=== PATIENT | male | born 1975 | race Caucasian/White ===

== ENCOUNTER 2016-10-10 11:15 | Inpatient (IN) ==
[2016-10-10] MEDS ORDERED: SALINE LOCK IV FLUID XX ONE (12:09)
[2016-10-10 12:48] LABS: MANUAL DIFF NEEDED? NO
[2016-10-10 12:50] LABS: BASO% 0.4 % (0.0-0.8); EOS# 0.04 X1000 (0.0-0.7); EOS% 0.7 % (0.0-10.0); HEMATOCRIT 35.2 % (42.0-52.0); HEMOGLOBIN 12.6 g/dL (14.0-18.0); IMM GRAN# 0.01 X1000 (0.0-0.04); IMM GRAN% 0.2 % (0.0-0.5); LYMPH# 0.97 X1000 (1.2-3.4); LYMPH% 17.7 % (20.5-51.1); MCH 35.5 PG (27-31); MCHC 35.8 g/dL (33-37); MCV 99.2 FL (81-99); MONO# 0.39 X1000 (0.11-0.59); MONO% 7.1 % (1.7-9.3); MPV 9.4 FL (7.4-10.4); NEUT% 73.9 % (42.2-75.2); PLT 133 X1000 (130-400); RBC 3.55 XMIL (4.7-6.1)
[2016-10-10 13:06] LABS: BILIRUBIN URINE NEGATIVE (NEGATIVE); BLOOD URINE TRACE (NEGATIVE); CLARITY CLEAR (CLEAR); COLOR YELLOW; LEUKOCYTES URINE 1+ (NEGATIVE); NITRITE URINE NEGATIVE (NEGATIVE); PROTEIN URINE TRACE mg/dL (NEGATIVE); SP GRAVITY URINE 1.015; UROBILINOGEN URINE NORMAL
[2016-10-10 13:07] LABS: URINE CULTURE PL NEEDED? YES; URINE EPITHELIAL CELLS <10 /HPF (<10); URINE RBC <10 /HPF (<10); URINE SOURCE CLEAN CATCH
[2016-10-10 13:12] LABS: CALCIUM 9.4 mg/dL (8.8-10.2); POTASSIUM 5.2 mmol/L (3.5-5.1); TOTAL BILIRUBIN 1.9 mg/dL (0.20-1.00)
--- NOTE | 2016-10-10 13:13 | EKG Report ---
Test Performed on : 10/10/2016 12:24:44 PM Test Reason : CP Blood Pressure : / mmHG Vent. Rate : 091 BPM Atrial Rate : 091 BPM P-R Int : 186 ms QRS Dur : 102 ms QT Int : 348 ms P-R-T Axes : 077 037 040 degrees QTc Int : 428 ms Normal sinus rhythm. Low voltage QRS Borderline ECG When compared with ECG of 24-NOV-2015 14:38, No significant change was found Unconfirmed Result
[2016-10-10] MEDS ORDERED: NS 1,000 ML IV ONE ×2 (14:37)
--- NOTE | 2016-10-10 15:12 | PROVIDER DOCUMENTATION ---
This chart was entered by Wilma Grimaldo Scribe, acting as scribe for Paddy Parsih MD. HPI-General Adult - General Chief Complaint: B/P Problems Stated Complaint: B/P PROB Time Seen by Provider: 10/10/16 11:54 Source: patient Allergies/Adverse Reactions: Patient Allergies Allergy/AdvReac Type Severity Reaction Status Date / Time adhesive AdvReac RASH Verified 10/10/16 11:40 Home Medications: Home Medication List Medication Instructions Recorded Confirmed Last Taken Type Indomethacin 50 mg PO PRN PRN 09/14/12 09/11/15 04/29/15 08:00 History Hydrocodone/Acetaminophen [Lortab 10 each PO TID 09/20/12 09/11/15 04/29/15 08: 00 History 10-500 Tablet] Tramadol [Ultram] 50 mg PO Q6H PRN PRN #12 tablet 09/20/12 09/11/15 04/29/15 08: 00 Rx Febuxostat [Uloric] 80 mg PO DAILY 04/15/13 09/11/15 04/29/15 08:00 History Omeprazole [Prilosec] 1 tab PO DAILY 10/14/13 09/11/15 04/29/15 08:00 History Furosemide [Lasix] 20 mg PO DAILY PRN PRN 12/30/13 09/11/15 04/29/15 08:00 History Gabapentin [Neurontin] 600 mg PO TID 12/30/13 09/11/15 04/29/15 08:00 History Sitagliptin [Januvia] 100 mg PO DAILY #30 tablet 10/22/14 09/11/15 04/29/15 08: 00 Rx Colchicine [Colcrys] 0.6 mg PO BID PRN PRN 09/11/15 09/11/15 Unknown History Hydrocodone/Acetaminophen [[place] 1 each PO Q4-6H PRN PRN #20 tablet 09/11/15 Unknown Rx 10-325 Tablet] Clonidine [Catapres] 0.1 mg PO DAILY #15 tablet 11/24/15 Unknown Rx Clindamycin [Cleocin] 150 mg PO Q6HR #30 capsule 12/29/15 Unknown Rx Methylprednisolone [Medrol Dosepak] 4 mg PO DIRECTED #1 package 12/29/15 Unknown Rx Levofloxacin [Levaquin] 750 mg PO DAILY #10 tablet 06/10/16 Unknown Rx Phenazopyridine [Pyridium] 100 mg PO TID #10 tablet 06/10/16 Unknown Rx - History of Present Illness -Gen Adult Nature of Presenting Problems: PT IS A 41YOM PRESENTING TO THE ED C/O BP LOW. PT STATES A HX OF HTN AND RENAL FAILURE BUT SINCE FRIDAY HEW STOPPED TAKING HIS BP MEDICATIONS BECAUSE HE STATES ITS BEEN RUNNING LOW. HE ALSO STATES NOT URINATING LIKE NORMAL. 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 PT HAS CHRONIC ABD PAIN FROM ULCERS AND JUST A "MILD PRESSURE LIKE DISCOMFORT IN CHEST THAT HE CAN FEEL IN HIS HEAD THAT IS INTERMITTENT AND LASTS ABOUT 10-15MINS PER EPISODE." NO OTHER COMPLAINTS NOTED AT THIS TIME Location of Pain/Injury: reports: generalized Pain Radiation: reports: no radiation Quality of Pain: reports: pressure Severity: reports: mild Onset/Duration: reports: 3 days ago Timing: reports: still present Context/Activities at Onset: reports: light activity Modifying Factors: improves with: nothing Associated Symptoms: reports: chest pain (PRESSURE, MILD), dizziness, fatigue, genitourinary problems, weakness. denies: constipation, cough, diaphoresis, diarrhea, joint pain, sinus congestion/drainage, nausea, shortness of breath, pain with inspiration, syncope Similar Symptoms Previously?: No Recently seen or treated by another doctor?: No Review of Systems - Adult - REVIEW OF SYSTEMS - ADULT Constitutional: reports: see HPI, fatique. denies: chills, fever Eyes: reports: no symptoms reported Ears, Nose, Mouth & Throat: reports: no symptoms reported Cardiovascular: reports: see HPI, chest pain, palpitations. denies: edema, irregular heart rate, poor circulation Respiratory: reports: see HPI, dyspnea on exertion, shortness of breath. denies : chronic cough, cough, wheezing Gastrointestinal: reports: see HPI, abdominal pain (CHRONIC), frequent heartburn . denies: diarrhea, nausea, vomiting Genitourinary: reports: see HPI, urinary retention. denies: flank pain, hematuria, incontinence Musculoskeletal: reports: no symptoms reported Integumentary: reports: no symptoms reported Neurological: reports: no symptoms reported Psychiatric: reports: no symptoms reported Endocrine: reports: no symptoms reported Hematologic/Lymphatic: reports: no symptoms reported Allergic/Immunologic: reports: no symptoms reported All Other Systems: Reviewed and Negative Past History - Adult - PAST MEDICAL HISTORY-ADULT Review of Records: reports: Old Records Reviewed, Nursing Assessment Review, Medications Reviewed, Social history reviewed & non-contributory. Major Childhood Illnesses: reports: denies history Cardiovascular: reports: HTN, hyperlipidemia Respiratory: reports: asthma Gastrointestinal: reports: colitis, ulcer Obstetrical/Gynecological: reports: denies history Genitourinary: reports: denies history Musculoskeletal: reports: arthritis, chronic pain, fibromyalgia, other Neurological: reports: denies history Endocrine/Immune: reports: Diabetes Other Conditions: reports: denies history - PRIOR SURGERIES/PROCEDURES Surgical/Procedure History: reports: cholecystectomy, orthopedic (extremity), back/neck - IMMUNIZATION STATUS Childhood Immunizations: See Nurse Assessment Flu Vaccine: See Nurse Assessment - FAMILY HISTORY Family History: reviewed, not pertinent - SOCIAL HISTORY Smoking: denies, non-smoker Substance Use: none/never, alcohol Alcohol Use Frequency: occasionally Number of drinks per typical drinking period:: 3-4 drinks Living Situation: family Physical Exam-General - PHYSICAL EXAM-ADULT Initial Vital Signs Reviewed: Yes - CONSTITUTIONAL General Appearance: appears well, alert, no apparent distress - EYES Eyes: PERRL/EOMI, pink conjunctivae - HEAD, EARS, NOSE, MOUTH & THROAT HENMT: normocephalic/atraumatic, moist mucous membranes, normal ENT inspection - NECK Neck: full range of motion, supple, normal inspection - RESPIRATORY Respiratory: lungs clear, normal breath sounds, no pleuratic chest pain, no respiratory distress, no accessory muscle use - CARDIOVASCULAR Cardiovascular: normal peripheral pulses, regular rate, rhythm, no edema - GASTROINTESTINAL (ABDOMEN) Abdominal Exam: soft, other (mild tender RUQ, pt says is nl for him) - MUSCULOSKELETAL Back Exam: normal inspection, no CVA tenderness, no vertebral tenderness Extremity: normal range of motion, non-tender - SKIN Integumentary: normal color, normal turgor, warm/dry - 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, grossly normal, no motor/sensory deficits - PSYCHIATRIC Psych/Mental Status: normal mood/affect, normal thought content, normal thought process, oriented x 3 Progress - PLAN OF CARE/RESULTS Progress/Plan/Lab Results: Vital Signs - 8 hr 10/10/16 11:37 Temperature 98 F Pulse Rate 96 H Respiratory Rate 18 Blood Pressure 122/73 O2 Sat by Pulse Oximetry 98 Orders Category Date Time Status ED: Orthostatic Vital Signs (E as directed Care 10/10/16 12:10 Active Saline Loc DIRECTED Care 10/10/16 12:09 Active CBC WITH DIFF [HEME] Stat Lab 10/10/16 12:09 Ordered COMPREHENSIVE METABOLIC PANEL [CHEM] Stat Lab 10/10/16 12:09 Ordered urinalysis [URINALYSIS PL W/POSS RFLX CULT] [URINALYSIS Lab 10/10/16 12:09 Uncollected ] Stat Pharmacy Order [Saline Lock IV Fluid] Med 10/10/16 12:09 Discontinued 1 each XX NOW ONE EKG [EKG] Routine Ther 10/10/16 12:10 Ordered Result Diagrams: 10/10/16 12:44 10/10/16 12:44 - CONSULTS/PCP/HOSPITALIST Notification #1 *Consult/PCP/Hospitalist*: LAVELL Time Discussed: 15:10 Reason/Comments: AGREES TO ADMIT PT TO SERVICE Consult Disposition: Admit Departure - Departure Time of Disposition Decision: 14:35 DIAGNOSIS: Acute renal failure (ARF), Hypotension Disposition: ADMITTED INPATIENT 09 Certified Medical Emergency: Emergent Condition: Good Referrals and Follow-Ups: Ritesh Young MD [Primary Care Provider] - - Critical Care Note This patient required my direct & personal management of CC.: No This chart was documented by the indicated scribe, (Wilma Grimaldo Scribe) and accurately reflects the services I performed and decisions made by me, Paddy Parish MD, as attested by the provider's signature.
[2016-10-10] MEDS ORDERED: ULTRAM PO PRN (21:09)
[2016-10-10] MEDS ORDERED: TYLENOL PO PRN (21:11)
[2016-10-10] MEDS ORDERED: ZOFRAN IV PRN (21:11)
[2016-10-10] MEDS: NS 1,000 ML IV SCH (21:38)
[2016-10-10] MEDS: NEURONTIN PO SCH (21:39)
[2016-10-10] MEDS: NORCO-10 PO PRN (21:39)
[2016-10-11 05:51] LABS: MANUAL DIFF NEEDED? NO
[2016-10-11] MEDS: NS 1,000 ML IV SCH ×3 (06:03→21:58)
[2016-10-11] MEDS: PRILOSEC PO SCH (06:03)
[2016-10-11 06:07] LABS: BASO% 0.4 % (0.0-0.8); EOS# 0.03 X1000 (0.0-0.7); EOS% 1.2 % (0.0-10.0); HEMATOCRIT 31.1 % (42.0-52.0); HEMOGLOBIN 10.4 g/dL (14.0-18.0); LYMPH# 0.95 X1000 (1.2-3.4); LYMPH% 38.2 % (20.5-51.1); MCH 34.6 PG (27-31); MCHC 33.4 g/dL (33-37); MCV 103.3 FL (81-99); MONO# 0.23 X1000 (0.11-0.59); MONO% 9.2 % (1.7-9.3); MPV 9.7 FL (7.4-10.4); PLT 79 X1000 (130-400); RBC 3.01 XMIL (4.7-6.1)
[2016-10-11 06:10] LABS: HEMOGLOBIN A1C 6.6 % (4.8-6.0)
[2016-10-11 06:34] LABS: ALBUMIN 3.4 g/dL (3.5-5.0); CALCIUM 8.6 mg/dL (8.8-10.2); POTASSIUM 4.1 mmol/L (3.5-5.1); TOTAL BILIRUBIN 1.3 mg/dL (0.20-1.00); TOTAL PROTEIN 6.9 g/dL (6.3-8.3)
--- NOTE | 2016-10-11 07:07 | HISTORY AND PHYSICAL ---
CHIEF COMPLAINT: Fatigue, decreased urination. HISTORY PRESENT ILLNESS: Patient is a 41-year-old male who presented to [facility] emergency department stating that he has a history of renal failure and hypertension; however, Friday he started feeling bad. His blood pressure was down to 89/47, so he did not take his blood pressure medicine for the last couple of days. Notes that he has been working out in the heat a little bit more. He states that he has been trying to drink lots of fluids, but over the last couple of days his urine has become very dark and notes that he essentially did not urinate yesterday at all. ALLERGIES: Adhesive tape. MEDICATIONS: 1. Indomethacin p.r.n. although he has not taken it recently. 2. Hydrocodone. 3. Tramadol. 4. 5. Prilosec. 6. Lasix 20. 7. Neurontin 600 t.i.d. 8. Januvia 100. 9. 0.6 b.i.d. p.r.n. PAST MEDICAL HISTORY: 1. Hypertension. 2. Gout . 3. Diabetes. 4. Renal failure. 5. Chronic gastric ulcers. 6. Chronic colitis. 7. Fibromyalgia. 8. Chronic arthritis. 9. Asthma. 10. Hyperlipidemia. PAST SURGICAL HISTORY: 1. He has had a history of cholecystectomy. 2. Has had back surgery. 3. Knee surgery. REVIEW OF SYSTEMS: As noted above, patient complains of chronic abdominal pain due to his ulcers, chronic nausea with frequent vomiting, his gout which caused chronic arthritis in his knees and his feet. Has had chest pain recently only when he takes a deep breath that he felt was likely secondary to his stomach ulcers. No radiation of said pain. Did not worsen with activity. Denies any palpitations. Denies any dysuria, frequency, or urgency. Denies constipation, melena, hematochezia. FAMILY HISTORY: Noncontributory. SOCIAL HISTORY: Patient lives at home. He is employed. He notes he no longer drinks, has not drank in several months. He does not smoke. PHYSICAL EXAMINATION: VITAL SIGNS: Temperature 98 degrees, pulse 96, respiratory rate 18, BP 122/73. Saturation 98% on room air. GENERAL: Patient is awake, alert, currently in no respiratory distress. He is pleasant to talk with but ill-appearing. HEENT: Normocephalic, atraumatic. NECK: Supple. CV: Regular rate. CHEST: Relatively clear. ABDOMEN: Soft. EXTREMITIES: Moves all extremities. No edema. NEUROLOGIC: No focal changes. SKIN: Warm and dry. No rashes. DIAGNOSTIC DATA: CBC normal. CMP with a sodium 1.4. Potassium 5.2. Carbon dioxide 22. BUN 38, creatinine 3.4, glucose 149. ASSESSMENT: 1. Acute volume depletion. 2. Hypotension secondary to volume depletion in a patient with a known history of hypertension. 3. Hyponatremia. 4. Hypokalemia. 5. Acute renal failure. 6. Metabolic acidosis. 7. Gout. 8. Diabetes. 9. Asthma. 10. Others. PLAN: We will admit patient to the hospital. Replace IV fluids. Hold any nephrotoxic drugs at the moment. Most likely, his sodium and potassium are secondary to his acute on chronic renal failure from volume depletion. No signs at this point of infectious etiology. cc: Ritesh Young MD
[2016-10-11] MEDS: NEURONTIN PO SCH ×3 (08:19→16:48)
[2016-10-11] MEDS: NORCO-10 PO PRN ×3 (08:24→20:14)
[2016-10-11] MEDS ORDERED: NEURONTIN PO SCH (09:00)
--- NOTE | 2016-10-11 09:10 | PROGRESS NOTE ---
DATE: 10/11/2016 SUBJECTIVE: The patient notes that he is feeling much better this morning. He is having less nausea and no vomiting. He is actually starting to have better urine output. Denies any chest pain, palpitations. Denies any burning or itching when he urinates. Denies any diarrhea, constipation or melena. OBJECTIVE: Temperature 97, pulse 80, respiratory 16, BP 135/66, saturation 100% on room air.General: Patient is awake, alert, oriented. He is in no distress. Speech is regular. Memory is intact. Neck: Supple. CV: Regular rate. Chest: Clear, nonlabored. Abdomen: Soft. Extremities: Moves all extremities well. Neurologic: No focal changes. Skin: Warm and dry. No rashes. LABS: Hemoglobin 10 and hematocrit 30. MCV 103, MCH 34. Potassium 4.1, sodium 135, creatinine 1.9, glucose 189, total bilirubin improved at 1.3. ASSESSMENT: 1. Acute hepatitis. Continues to improve. Likely secondary to his current situation as well as his known history of chronic alcohol ingestion. 2. Hyponatremia, resolved, sodium 135. 3. Acute renal failure. Continues to improve. His BUN is down to 30, creatinine down to 1.9. 4. Diabetes with hyperglycemia. Good home control an A1c of 6.6. Blood sugars were much better in the hospital currently. 5. Anemia of chronic disease. 6. Gout. 7. Hypertension. The patient's blood pressures are starting to increase, although he has not restarted his home medications yet. We will continue to follow. PLAN: We will continue IV fluids. Recheck his labs in the a.m. Hopefully home at that point. We will restart his Januvia. Continue to hold Uloric and Lasix for now. cc: Ritesh Young MD
[2016-10-11] MEDS: JANUVIA PO SCH (09:40)
[2016-10-12 06:12] LABS: HEMATOCRIT 29.7 % (42.0-52.0); HEMOGLOBIN 9.7 g/dL (14.0-18.0); MCH 34.9 PG (27-31); MCHC 32.7 g/dL (33-37); MCV 106.8 FL (81-99); MPV 9.7 FL (7.4-10.4); RBC 2.78 XMIL (4.7-6.1)
[2016-10-12] MEDS: PRILOSEC PO SCH (06:14)
[2016-10-12 06:43] LABS: AGAP 10; ALBUMIN 3.3 g/dL (3.5-5.0); ALKALINE PHOSPHATASE 170 U/L (32-122); BUN 17 mg/dL (8-22); CALCIUM 8.3 mg/dL (8.8-10.2); CHLORIDE 104 mmol/L (98-107); COSMO 280; GOT 75 U/L (10-34); GPT 28 U/L (10-44); POTASSIUM 4.2 mmol/L (3.5-5.1); SODIUM 138 mmol/L (136-145); TCO2 24 mmol/L (25-35); TOTAL PROTEIN 6.3 g/dL (6.3-8.3)
[2016-10-12 07:46] VITALS: BP 143/76
[2016-10-12] MEDS: NS 1,000 ML IV SCH (08:03)
[2016-10-12] MEDS: NEURONTIN PO SCH (08:04)
[2016-10-12] MEDS: NORCO-10 PO PRN (08:04)
[2016-10-12] MEDS: JANUVIA PO SCH (08:04)
--- NOTE | 2016-10-12 22:12 | DISCHARGE SUMMARY ---
ADMISSION DATE: 10/10/2016 DISCHARGE DATE: 10/12/2016 DISCHARGE DIAGNOSES: 1. Acute renal failure resolved. Creatinine 3.4 admit, 1.2 discharge. 2. Acute volume depletion. BUN 38 admit, 17 discharge. 3. Hyponatremia, 124 admit, 138 discharge. 4. Hyperkalemia secondary to volume depletion and renal failure resolved currently 4.2 on discharge. 5. Anemia of chronic disease. 6. Pancytopenia. Patient's platelet count continues to be low as well as his hemoglobin and hematocrit and his white count. This will be followed outpatient. 7. Hyperbilirubinemia improving. Bilirubin down to 1.2. 8. Gout. 9. Diabetes. 10. Reflux. CONSULTATION: None. PROCEDURES: None. BRIEF HOSPITAL COURSE: Patient is a 41-year-old male was admitted as noted in the HPI, treated in usual fashion, placed on IV fluids. His medications were continued with exception of his indomethacin which he notes he has not taken in over a year. His colchicine also was held. Otherwise his other medications were continued. He was given fluids. On discharge he was awake, alert. He is ambulating in the ross without any difficulty. DISPOSITION: The patient will be discharged home. Discussed with him that he needs to continue to watch his fluid intake. No changes were made in his home medications. cc: Ritesh Young MD
== END 2016-10-12 11:40 | disposition home or self-care (01) ==
LOC: P.MEDSURG 11:15 → P.ED 11:15 → OBSVTOIN 16:26
PROVIDERS: ATTEND Family Medicine

== ENCOUNTER 2016-12-10 17:57 | Inpatient (IN) ==
[2016-12-10 18:46] LABS: MANUAL DIFF NEEDED? NO
[2016-12-10 18:52] LABS: BILIRUBIN URINE 2+ (NEGATIVE); BLOOD URINE NEGATIVE (NEGATIVE); CLARITY CLEAR (CLEAR); COLOR YELLOW; GLUCOSE URINE NEGATIVE (NEGATIVE); LEUKOCYTES URINE TRACE (NEGATIVE); NITRITE URINE NEGATIVE (NEGATIVE); PROTEIN URINE 1+(30 mg/dL) mg/dL (NEGATIVE); UROBILINOGEN URINE 4+(12 mg/dL)
[2016-12-10 18:53] LABS: URINE WBC <10 /HPF (<10)
[2016-12-10 18:54] LABS: URINE CAST NONE SEEN /LPF; URINE CRYSTAL NONE SEEN /HPF; URINE CULTURE PL NEEDED? YES; URINE EPITHELIAL CELLS <10 /HPF (<10); URINE SOURCE CLEAN CATCH
[2016-12-10 19:14] LABS: AGAP 10; ALBUMIN 2.9 g/dL (3.5-5.0); ALKALINE PHOSPHATASE 274 U/L (32-122); BUN 11 mg/dL (8-22); CALCIUM 8.4 mg/dL (8.8-10.2); CHLORIDE 94 mmol/L (98-107); COSMO 268; GOT 138 U/L (10-34); GPT 38 U/L (10-44); POTASSIUM 3.5 mmol/L (3.5-5.1); SODIUM 131 mmol/L (136-145); TCO2 26 mmol/L (25-35); TOTAL PROTEIN 6.3 g/dL (6.3-8.3)
[2016-12-10 19:18] LABS: BASO% 0.3 % (0.0-0.8); EOS# 0.03 X1000 (0.0-0.7); EOS% 0.9 % (0.0-10.0); HEMATOCRIT 35.1 % (42.0-52.0); HEMOGLOBIN 11.5 g/dL (14.0-18.0); LYMPH# 0.86 X1000 (1.2-3.4); LYMPH% 25.9 % (20.5-51.1); MCH 33.1 PG (27-31); MCHC 32.8 g/dL (33-37); MCV 101.2 FL (81-99); MONO# 0.33 X1000 (0.11-0.59); MONO% 9.9 % (1.7-9.3); MPV 10.2 FL (7.4-10.4); PLT 70 X1000 (130-400); RBC 3.47 XMIL (4.7-6.1)
[2016-12-10] MEDS ORDERED: NS 1,000 ML IV ONE (19:37)
--- NOTE | 2016-12-10 19:44 | PROVIDER DOCUMENTATION ---
HPI-Abdominal Pain/GI Problem - General Chief Complaint: Male Stated Complaint: RENAL FAILURE Time Seen by Provider: 12/10/16 19:27 Allergies/Adverse Reactions: Patient Allergies Allergy/AdvReac Type Severity Reaction Status Date / Time adhesive AdvReac RASH Verified 10/10/16 11:40 Home Medications: Home Medication List Medication Instructions Recorded Confirmed Last Taken Type Tramadol [Ultram] 50 mg PO Q6H PRN PRN #12 tablet 09/20/12 12/10/16 04/29/15 08: 00 Rx Febuxostat [Uloric] 80 mg PO DAILY 04/15/13 12/10/16 04/29/15 08:00 History Furosemide [Lasix] 20 mg PO DAILY PRN PRN 12/30/13 12/10/16 12/08/16 History 20mg Gabapentin [Neurontin] 600 mg PO TID 12/30/13 12/10/16 12/10/16 History 600 MG Sitagliptin [Januvia] 100 mg PO DAILY #30 tablet 10/22/14 12/10/16 12/10/16 Rx 100 MG Colchicine [Colcrys] 0.6 mg PO BID PRN PRN 09/11/15 12/10/16 Unknown History Hydrocodone/Acetaminophen [[place] 1 each PO Q4-6H PRN PRN #20 tablet 09/11/1512/10/16 Rx 10-325 Tablet] 1 EACH Lansoprazole 30 mg PO DAILY 10/10/16 12/10/16 12/10/16 History 30 MG - History of Present Illness-ABD Nature of Presenting Problems: Pt comes in stating that he hasn't been urinating well. He states he hydrates well drinking a lot of water at work. He then later admits to drinking roughly 9 beers most nights but no liquor and didn't think his drinking was a problem. Review of Systems - Adult - REVIEW OF SYSTEMS - ADULT Constitutional: reports: no symptoms reported. denies: chills, fever, fatique, night sweats, weight gain, weight loss Eyes: reports: no symptoms reported. denies: decreased vision, double vision, eye pain Ears, Nose, Mouth & Throat: reports: no symptoms reported. denies: ear discharge, ear pain, hearing loss, epistaxis, loose teeth, mouth/dental pain, mouth swelling, throat pain, throat swelling Cardiovascular: reports: no symptoms reported. denies: chest pain, edema, heart murmur, irregular heart rate, palpitations, poor circulation, PND, syncope Respiratory: reports: no symptoms reported. denies: see HPI, excessive sputum production, hemoptysis, pleurisy, shortness of breath, wheezing Gastrointestinal: reports: see HPI, abdominal pain, constipation. denies: hematemesis, difficulty swallowing, frequent heartburn, nausea, poor appetite, rectal bleeding, vomiting Genitourinary: reports: see HPI, urinary retention. denies: dysuria, discharge , frequency, flank pain, frequent UTI's, hematuria, hesitency, incontinence, urgency Musculoskeletal: reports: see HPI, back pain. denies: bone pain, frequent leg cramps, joint pain, joint swelling, muscle aches, muscle weakness, neck pain Integumentary: reports: no symptoms reported. denies: hives, hair loss, mole changes, skin sores/ulcer, skin thickening Neurological: reports: no symptoms reported. denies: ataxia, dizziness/vertigo , headache/migraines, loss of balance, numbness, seizure, slurred speech, syncope, tremors Psychiatric: reports: see HPI, alcohol/drug dependence. denies: anxiety, depression, emotional problems, panic attacks, suicidal thoughts Endocrine: reports: no symptoms reported. denies: change in skin pigment, excessive sweating, goiter, heat intolerance, increased hunger, increased thirst , polyuria Hematologic/Lymphatic: reports: no symptoms reported. denies: blood clots, easy bruising, lymphedema, swollen lymph nodes, transfusions Allergic/Immunologic: reports: no symptoms reported. denies: allergic reactions , allergic rhinitis, asthma, eczema, food allergy, frequent infections, hay fever, positive PPD, urticaria All Other Systems: Reviewed and Negative Past History - Adult - PAST MEDICAL HISTORY-ADULT Review of Records: reports: Old Records Reviewed, Nursing Assessment Review, Medications Reviewed, Social history reviewed & non-contributory. Major Childhood Illnesses: reports: denies history Cardiovascular: reports: HTN, hyperlipidemia Respiratory: reports: asthma Gastrointestinal: reports: colitis, ulcer Obstetrical/Gynecological: reports: denies history Genitourinary: reports: denies history Musculoskeletal: reports: arthritis, chronic pain, fibromyalgia, other Neurological: reports: denies history Endocrine/Immune: reports: Diabetes Other Conditions: reports: denies history - PRIOR SURGERIES/PROCEDURES Surgical/Procedure History: reports: cholecystectomy, orthopedic (extremity), back/neck - IMMUNIZATION STATUS Childhood Immunizations: See Nurse Assessment Flu Vaccine: See Nurse Assessment - FAMILY HISTORY Family History: reviewed, not pertinent - SOCIAL HISTORY Smoking: denies Substance Use: alcohol Alcohol Use Frequency: every day Number of drinks per typical drinking period:: 5-10 drinks Living Situation: alone Physical Exam-General - PHYSICAL EXAM-ADULT Initial Vital Signs Reviewed: Yes - CONSTITUTIONAL General Appearance: appears well, alert, obese, other (jaundiced) - EYES Eyes: PERRL/EOMI, pink conjunctivae - HEAD, EARS, NOSE, MOUTH & THROAT HENMT: normocephalic/atraumatic, moist mucous membranes, normal ENT inspection - NECK Neck: non-tender, full range of motion, supple - RESPIRATORY Respiratory: chest non-tender, lungs clear, normal breath sounds - CARDIOVASCULAR Cardiovascular: normal peripheral pulses, regular rate, rhythm - GASTROINTESTINAL (ABDOMEN) Abdominal Exam: normal bowel sounds, soft, tenderness, spleenomegaly - MUSCULOSKELETAL Back Exam: no vertebral tenderness, CVA tenderness Extremity: normal range of motion, non-tender, normal gait - SKIN Integumentary: normal turgor, warm/dry, other (chronic discoloration bilat lower ext) - NEUROLOGIC 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9 [place] % (Auto) 9.9 H Eos % (Auto) 0.9 Baso % (Auto) 0.3 Immature Gran # (Auto) 0.00 Neut # (Auto) 2.09 Lymph # (Auto) 0.86 L [place] # (Auto) 0.33 Eos # (Auto) 0.03 Baso # (Auto) 0.01 Sodium 131 L Potassium 3.5 Chloride 94 L Carbon Dioxide 26 Anion Gap 10 BUN 11 Creatinine 0.8 Estimated GFR/1.73 m2 > 60 BUN/Creatinine Ratio 14 Glucose 213 H Calculated Osmolality 268 Calcium 8.4 L Total Bilirubin 6.30 H AST 138 H ALT 38 Alkaline Phosphatase 274 H Total Protein 6.3 Albumin 2.9 L Globulin 3.0 Albumin/Globulin Ratio 1.0 Urine Source CLEAN CATCH Urine Color YELLOW Urine Clarity CLEAR Urine pH 5.0 Ur Specific [place] 1.020 Urine Protein 1+(30 mg/dL) A Urine Ketones 1+(Small) A Urine Blood NEGATIVE Urine Nitrite NEGATIVE Urine Bilirubin 2+ A Urine Urobilinogen 4+(12 mg/dL) Urine Microscopic RBC Not Reportable Urine WBC TRACE A Urine Microscopic WBC <10 Ur Epithelial Cells <10 Urine Crystals NONE SEEN Urine Bacteria 1+ Urine Casts NONE SEEN Urine Yeast NONE SEEN Urine Glucose NEGATIVE Orders Category Date Time Status IV Insertion ORDERED Care 12/10/16 19:37 Ordered ABDOMEN/PELVIS W/CONTRAST [CT] Stat Exams 12/10/16 19:33 Ordered AMYLASE [CHEM] Stat Lab 12/10/16 19:31 Ordered CBC WITH DIFF [HEME] Stat Lab 12/10/16 18:42 Completed CMP [COMPREHENSIVE METABOLIC PANEL] [CHEM] Stat Lab 12/10/16 18:42 Completed LIPASE [CHEM] Stat Lab 12/10/16 19:32 Ordered URINE CULTURE [RM] Routine Lab 12/10/16 18:54 Ordered urinalysis [URINALYSIS PL W/POSS RFLX CULT] [URINALYSIS Lab 12/10/16 18:15 Completed ] Stat Ns 1000 ml IV Bolus X1 Med 12/10/16 19:37 Ordered 0.9% Sodium Chloride Inj [Ns] 1,000 ml IV 999 mls/hr Result Diagrams: 12/10/16 18:42 12/10/16 18:42 - CONSULTS/PCP/HOSPITALIST Notification #1 *Consult/PCP/Hospitalist*: penot Time Discussed: 20:31 Consult Disposition: Admit Departure - Departure Date of Disposition Decision: 07/18/17 Time of Disposition Decision: 20:31 DIAGNOSIS: Alcoholic hepatitis Qualifiers: Ascites presence: without ascites Qualified Code(s): K70.10 - Alcoholic hepatitis without ascites Disposition: ADMITTED INPATIENT 09 Certified Medical Emergency: Emergent Condition: Good Additional Freetext Instructions: ED Follow Up Instructions: You have been treated by a care provider in the Emergency Department. These instructions are being provided to you so you can have an understanding of how to care for yourself upon discharge. Upon discharge from the Emergency Department, you are responsible for making arrangements for follow-up care by a physician of your choice. Take all prescribed medications as directed. Return to the Emergency Department immediately for any new or worsening symptoms. You may call the Physician Referral phone number at [phone] to obtain a list of Physicians who are taking new patients. Referrals and Follow-Ups: Ritesh Young MD [Primary Care Provider] - - Critical Care Note This patient required my direct & personal management of CC.: No Attestation - Physician/ SABI Attestation Patient care was provided by Advanced Practice Provider:: Yes Advanced Practice Provider:: Lindy Hernandez (physician on site for consultation but did not see this patient) Advanced Practice Provider documentation review:: The Mid-level provider documentation, treatment plan and medical decision making was reviewed by the physician who agrees with all treatment and medical decision making by the MLP.
--- NOTE | 2016-12-10 20:58 | Diag Imaging Result Doc PS360 ---
EXAM: CT ABD/PELVIS W/ IV CONT ONLY INDICATION: abnormal labs TECHNIQUE: COMPARISON: 06/10/2016 FINDINGS: There has been a previous cholecystectomy. There is splenomegaly with the spleen measuring up to 22.6 cm in craniocaudal length, approximately stable. The liver is mildly prominent, stable. There are no renal or ureteral stones and there is no hydronephrosis. The appendix is normal. There is trace nonspecific fluid tracking along the right pericolic gutter and layering in the pelvis. At least a trace fluid in the paracolic gutter is very similar as compared to the previous study. No focal inflammatory change or free abdominal gas is appreciated. There is no evidence of bowel obstruction. The remainder of the solid viscera of the abdomen and pelvis and the remainder of the GI tract are essentially unremarkable. IMPRESSION: 1.Stable hepatosplenomegaly. 2.Trace nonspecific fluid tracking along the right paracolic gutter and layering in the pelvis. Electronically signed by Maikol Daley 12/10/2016 8:56 PM
[2016-12-10] MEDS ORDERED: ZOFRAN IV PRN (21:17)
[2016-12-10] MEDS ORDERED: SODIUM CHLORIDE 0.9% INJ SCH (21:17)
[2016-12-10] MEDS: PROTONIX IV SCH (21:58)
[2016-12-10] MEDS: NS 1,000 ML IV SCH (21:58)
[2016-12-10] MEDS: ATIVAN IV PRN (21:58)
[2016-12-11] MEDS ORDERED: ULTRAM PO PRN (00:05)
[2016-12-11] MEDS ORDERED: LASIX PO PRN (00:05)
[2016-12-11] MEDS ORDERED: COLCRYS PO PRN (00:05)
[2016-12-11] MEDS: NORCO-10 PO PRN ×4 (00:45→22:02)
[2016-12-11] MEDS: ATIVAN IV PRN ×2 (00:51→22:03)
[2016-12-11] MEDS: NS 1,000 ML IV SCH (05:53)
[2016-12-11 06:16] LABS: MANUAL DIFF NEEDED? NO
[2016-12-11 06:45] LABS: BASO% 0.4 % (0.0-0.8); EOS# 0.04 X1000 (0.0-0.7); EOS% 1.8 % (0.0-10.0); HEMATOCRIT 32.8 % (42.0-52.0); HEMOGLOBIN 10.3 g/dL (14.0-18.0); IMM GRAN# 0.01 X1000 (0.0-0.04); IMM GRAN% 0.4 % (0.0-0.5); LYMPH# 0.95 X1000 (1.2-3.4); LYMPH% 42.2 % (20.5-51.1); MCH 32.6 PG (27-31); MCHC 31.4 g/dL (33-37); MCV 103.8 FL (81-99); MONO# 0.27 X1000 (0.11-0.59); MPV 10.1 FL (7.4-10.4); NEUT% 43.2 % (42.2-75.2); PLT 61 X1000 (130-400); RBC 3.16 XMIL (4.7-6.1)
[2016-12-11 06:51] LABS: AGAP 6; ALBUMIN 2.5 g/dL (3.5-5.0); ALKALINE PHOSPHATASE 236 U/L (32-122); BUN 7 mg/dL (8-22); CALCIUM 7.9 mg/dL (8.8-10.2); CHLORIDE 102 mmol/L (98-107); COSMO 275; GOT 115 U/L (10-34); GPT 32 U/L (10-44); POTASSIUM 3.4 mmol/L (3.5-5.1); SODIUM 137 mmol/L (136-145); TCO2 29 mmol/L (25-35); TOTAL PROTEIN 5.7 g/dL (6.3-8.3)
[2016-12-11] MEDS ORDERED: NS 1,000 ML IV SCH ×2 (08:25→18:55)
[2016-12-11] MEDS: NEURONTIN PO SCH ×3 (09:07→17:25)
[2016-12-11] MEDS: JANUVIA PO SCH (09:07)
[2016-12-11] MEDS: ULORIC PO SCH (09:07)
--- NOTE | 2016-12-11 14:00 | HISTORY AND PHYSICAL ---
CHIEF COMPLAINT: Flank pain. HISTORY OF PRESENT ILLNESS: Patient is a 41-year-old male, who notes that he has had multiple issues in the past with renal failure and flank pain when he gets dehydrated at work over the summer. He presented to the emergency department, stating that his urine is dark. It has a foul odor. He is having left flank pain. He has had decreased urination and it concerned him because last year he went into renal failure and remained in the hospital for several days. ALLERGIES: Adhesive tape. MEDICATIONS: Tramadol, Uloric 80, Lasix 20, Neurontin 600, Januvia 100, 0.6 b.i.d., Leonard, and Protonix. REVIEW OF SYSTEMS: As noted above. Patient denies any chest pain, palpitations. Denies any fevers, chills, cough, congestion. Denies any shortness of breath or dyspnea on exertion. Denies paroxysmal nocturnal dyspnea or orthopnea. Denies hematochezia, melena, hematemesis, or hematuria. PAST MEDICAL HISTORY: Hypertension, hyperlipidemia, asthma, gout, recurrent colitis, peptic ulcer disease, fibromyalgia, chronic pain, diabetes. PAST SURGICAL HISTORY: He has had a cholecystectomy and back surgery. FAMILY HISTORY: Noncontributory. SOCIAL HISTORY: Patient denies smoking. States that he drinks 5-10 beers a day but did not think this was an issue because he was not drinking hard liquor. He is and lives alone. Has one daughter. PHYSICAL: Vital Signs: Temperature 99, pulse 90, respiratory rate 21, blood pressure 141/72, sat 98% on room air. General: Patient is awake, alert, currently in no respiratory distress. He is pleasant to talk with. Neck: Supple. Cardiovascular: Regular rate. Chest: Relatively clear. Abdomen: Soft. Extremities: Moves all extremities. Neurologic: No focal changes. Skin: Warm and dry. No rashes. DIAGNOSTIC DATA: WBCs 2. Hemoglobin and hematocrit 10 and 30. Platelets 61,000. Potassium 3.5, sodium 131, total bilirubin 6.3. AST 138, down to 115. Alkaline phosphatase 274, down 236. ASSESSMENT: 1. Moderate protein calorie malnutrition with an albumin around 2.5. 2. Acute alcoholic hepatitis. Continues to improve. 3. Hypocalcemia. Actually corrects given his low albumin. 4. Hyponatremia, improved. 5. Hypokalemia. Will replace. 6. Pancytopenia, chronic. 7. Chronic alcoholism. 8. Chronic gout. 9. Fibromyalgia. PLAN: Discussed with the patient that he needs to stop drinking. That certainly all alcohol, including beer, worsens his gout, as well as his renal failure. Currently, he is not in renal failure. We will continue his bag to IV fluids. We will advance his diet. Further orders as needed. Hopefully home in the next 1-2 days. cc: Ritesh Young MD
[2016-12-11] MEDS: PROTONIX IV SCH (22:02)
[2016-12-12 06:33] LABS: HEMATOCRIT 33.2 % (42.0-52.0); HEMOGLOBIN 10.4 g/dL (14.0-18.0); MCHC 31.3 g/dL (33-37); MCV 105.4 FL (81-99); MPV 10.3 FL (7.4-10.4); RBC 3.15 XMIL (4.7-6.1)
[2016-12-12 06:42] LABS: AGAP 6; ALBUMIN 2.3 g/dL (3.5-5.0); ALKALINE PHOSPHATASE 231 U/L (32-122); BUN 5 mg/dL (8-22); CALCIUM 8.1 mg/dL (8.8-10.2); CHLORIDE 104 mmol/L (98-107); COSMO 272; GOT 96 U/L (10-34); GPT 27 U/L (10-44); POTASSIUM 3.7 mmol/L (3.5-5.1); SODIUM 135 mmol/L (136-145); TCO2 24 mmol/L (25-35); TOTAL PROTEIN 5.7 g/dL (6.3-8.3)
[2016-12-12 08:10] VITALS: BP 161/80
[2016-12-12] MEDS: NORCO-10 PO PRN (09:13)
[2016-12-12] MEDS: NEURONTIN PO SCH (09:13)
[2016-12-12] MEDS: ULORIC PO SCH (09:13)
[2016-12-12] MEDS: JANUVIA PO SCH (09:14)
[2016-12-12 09:37] LABS: HEPATITIS PROFILE ACUTE SEE COMMENTS
--- NOTE | 2016-12-13 23:42 | DISCHARGE SUMMARY ---
ADMISSION DATE: 12/10/2016 DISCHARGE DATE: 12/12/2016 DATE OF ADMISSION: 12/10. DATE OF DISCHARGE: 12/12. DISCHARGE DIAGNOSES: 1. Abdominal pain, improved. 2. Acute volume depletion, resolved. 3. Mild protein calorie malnutrition. 4. Acute hepatitis, resolved. 5. Hypocalcemia, resolved. 6. Hyponatremia, resolved. 7. Hypokalemia, resolved. 8. Chronic alcoholism, again discussed with patient the perils of drinking and ways to stop. 9. Chronic gout. 10. Fibromyalgia. CONSULTATIONS: None. PROCEDURES: None. BRIEF HOSPITAL COURSE: The patient is a 41-year-old male who was admitted. As noted in the HPI, treated in the usual fashion. Placed on IV fluids. He was continued on his home medications. Thankfully he did not have any alcohol withdrawal type issues while he was in the hospital. He continued to improve and on discharge he was awake, alert. DISPOSITION: The patient will be discharged home. Discussed with him the perils of drinking. 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 Further orders as needed. TIME SPENT: 35 minutes was spent in discharge planning and instructions. cc: Ritesh Young MD
== END 2016-12-12 11:35 | disposition home or self-care (01) ==
LOC: P.ED 17:57 → P.MEDSURG 20:58 → SUATTDRO 20:58 → P.MEDSURG 21:05
PROVIDERS: ADMIT Family Medicine; ATTEND Family Medicine

== ENCOUNTER 2018-10-14 10:21 | Inpatient (IN) ==
[2018-10-14 10:59] LABS: BASO# 0.02 X1000 (0.0-0.2); EOS# 0.02 X1000 (0.0-0.7); HEMATOCRIT 32.2 % (42.0-52.0); HEMOGLOBIN 9.9 g/dL (14.0-18.0); LYMPH# 0.38 X1000 (1.2-3.4); LYMPH% 18.5 % (20.5-51.1); MCH 28.5 PG (27-31); MCHC 30.7 g/dL (33-37); MCV 92.8 FL (81-99); MONO# 0.24 X1000 (0.11-0.59); MONO% 11.7 % (1.7-9.3); MPV 10.3 FL (7.4-10.4); NEUT# 1.39 X1000 (1.4-6.5); NEUT% 67.8 % (42.2-75.2); PLT 52 X1000 (130-400); RBC 3.47 XMIL (4.7-6.1); RDW 15.9 % (11.5-14.5); WBC 2.05 X1000 (4.8-10.8)
[2018-10-14 11:04] LABS: BILIRUBIN URINE NEGATIVE (NEGATIVE); BLOOD URINE NEGATIVE (NEGATIVE); CLARITY CLEAR (CLEAR); COLOR YELLOW; KETONE URINE TRACE mg/dL (NEGATIVE); LEUKOCYTES URINE TRACE (NEGATIVE); NITRITE URINE NEGATIVE (NEGATIVE); PROTEIN URINE 1+(30 mg/dL) mg/dL (NEGATIVE); SP GRAVITY URINE 1.005; UROBILINOGEN URINE 4 mg/dL
[2018-10-14 11:05] LABS: URINE BACTERIA NEGATIVE /HFP; URINE CAST NONE SEEN /LPF; URINE CRYSTAL NONE SEEN /HPF; URINE EPITHELIAL CELLS <10 /HPF (<10); URINE RBC <10 /HPF (<10); URINE SOURCE CLEAN CATCH; URINE WBC <10 /HPF (<10); URINE YEAST NONE SEEN /HPF
[2018-10-14 11:11] LABS: AGAP 15; ALBUMIN 3.2 g/dL (3.5-5.0); ALKALINE PHOSPHATASE 187 U/L (32-122); BUN 4 mg/dL (8-22); CALCIUM 8.6 mg/dL (8.8-10.2); CHLORIDE 99 mmol/L (98-107); COSMO 281; CREATININE 0.4 mg/dL (0.7-1.2); ESTIMATED GFR > 60; GLUCOSE 222 mg/dL (70-104); GOT 104 U/L (10-34); GPT 29 U/L (10-44); LIPASE 66 U/L (13-60); SODIUM 139 mmol/L (136-145); TCO2 26 mmol/L (25-35); TOTAL PROTEIN 7.3 g/dL (6.3-8.3)
[2018-10-14 11:26] LABS: INR 1.23; PROTIME 16.1 Seconds (11.0-16.0)
--- NOTE | 2018-10-14 11:30 | Diag Imaging Result Doc PS360 ---
EXAM: FLAT/UPRIGHT ABD/1 VIEW CHEST HISTORY: abd pain TECHNIQUE: Flat and upright with chest, four views COMPARISON: 07/14/2017 FINDINGS: The lungs are well expanded. No pneumonia. No cardiomegaly. No free air beneath the diaphragm. The gallbladder has been removed. No bowel obstruction. No organomegaly. No abnormal abdominal calcifications. IMPRESSION: No acute abnormality. Electronically signed by Luis Eduardo Roberson 10/14/2018 11:27 AM
--- NOTE | 2018-10-14 11:36 | PROVIDER DOCUMENTATION ---
This chart was entered by Sahra Richardson Scribe, acting as scribe for Arlene Lomeli CRNP. HPI-Abdominal Pain/GI Problem - General Chief Complaint: Abdominal Pain Stated Complaint: ABD PAIN Time Seen by Provider: 10/14/18 11:02 Source: patient Allergies/Adverse Reactions: Patient Allergies Allergy/AdvReac Type Severity Reaction Status Date / Time No Known Allergies Allergy Verified 10/23/17 12:05 Home Medications: Home Medication List Medication Instructions Recorded Confirmed Last Taken Type Furosemide [Lasix] 40 mg PO DAILY 12/30/13 05/28/18 12/08/16 History 20mg Gabapentin [Neurontin] 800 mg PO DAILY 12/30/13 05/28/18 12/10/16 History 600 MG Sitagliptin [Januvia] 100 mg PO DAILY #30 tablet 10/22/14 05/28/18 12/10/16 Rx 100 MG Colchicine [Colcrys] 0.6 mg PO BID PRN PRN 09/11/15 05/28/18 Unknown History Lansoprazole 30 mg PO DAILY 10/10/16 05/28/18 12/10/16 History 30 MG Albuterol Sulfate [Albuterol 8.5 gm IH BID PRN PRN 01/26/18 05/28/18 Unknown History Sulfate Hfa] Cyanocobalamin (Vitamin B-12) 1,000 mcg SQ DIRECTED 01/26/18 05/28/18 01/21/18 History [Cobal-1000] Hydrocodone/Acetaminophen [[place] 1 each PO TID PRN PRN 01/26/18 05/28/18 Unknown History 10-325 Tablet] Indomethacin [Indocin] 50 mg PO BID PRN PRN 01/26/18 05/28/18 Unknown History Methocarbamol 500 mg PO BID 01/26/18 05/28/18 Unknown History Tramadol [Ultram] 50 mg PO TID PRN PRN 01/26/18 05/28/18 Unknown History Dicyclomine [Bentyl] 10 mg PO TID AC PRN 01/27/18 05/28/18 Unknown History Febuxostat [Uloric] 80 mg PO DAILY 05/28/18 05/28/18 Unknown History Gabapentin 1,600 mg PO QHS 05/28/18 05/28/18 Unknown History Gabapentin 800 mg PO WLUNCH 05/28/18 05/28/18 Unknown History Spironolactone 50 mg PO DAILY 05/28/18 05/28/18 Unknown History - History of Present Illness-ABD Nature of Presenting Problems: 43 yom presents to the ed with c/o abdominal pain with n/v. pt has diabetes and did mot take his medication this am. pt has large bruise on right sided abdomen and RUE and sts unknown when he got bruise. pt is jittery on exam Abdominal Pain Onset Location: reports: generalized abdomen Pain Radiation: reports: no radiation Quality of Pain: reports: aching Severity in ED: reports: moderate Onset/Duration: reports: this morning Timing: reports: still present Activities at Onset: reports: light activity Exposure to sick contacts?: No Modifying Factors: improves with: nothing Associated Symptoms: reports: nausea, vomiting. denies: back/neck pain, chest pain, diarrhea, fever/chills, headaches Last BM: this morning Dark Stools Present?: reports: none noticed Rectal Bleeding: reports: none # of Diarrhea Episodes: 0 Rectal Pain: reports: none # of Vomiting Episodes: 3 Bruising or Bleeding Gums?: No Similar Symptoms Previously?: No Recently seen or treated by another doctor?: No Review of Systems - Adult - REVIEW OF SYSTEMS - ADULT Constitutional: denies: chills, fever Eyes: reports: no symptoms reported Ears, Nose, Mouth & Throat: reports: no symptoms reported Cardiovascular: denies: chest pain, palpitations, syncope Respiratory: denies: shortness of breath, wheezing Gastrointestinal: reports: see HPI, abdominal pain, nausea, vomiting. denies: diarrhea Genitourinary: reports: no symptoms reported Musculoskeletal: reports: no symptoms reported Integumentary: reports: no symptoms reported Neurological: denies: dizziness/vertigo, headache/migraines Psychiatric: reports: no symptoms reported Endocrine: reports: no symptoms reported Hematologic/Lymphatic: reports: see HPI, easy bruising Allergic/Immunologic: reports: no symptoms reported All Other Systems: Reviewed and Negative Past History - Adult - PAST MEDICAL HISTORY-ADULT Review of Records: reports: Nursing Assessment Review, Medications Reviewed Major Childhood Illnesses: reports: denies history Cardiovascular: reports: HTN, hyperlipidemia Respiratory: reports: asthma, COPD Gastrointestinal: reports: colitis, hepatitis, liver disease (cirrhosis), ulcer Genitourinary: reports: denies history, kidney disease Musculoskeletal: reports: arthritis, chronic pain, fibromyalgia, other Neurological: reports: denies history Psychiatric: reports: denies history Endocrine/Immune: reports: Diabetes, other (hep c) Diabetes Type: Type 2 Other Conditions: reports: denies history - PRIOR SURGERIES/PROCEDURES Surgical/Procedure History: reports: cholecystectomy, orthopedic (extremity), back/neck - IMMUNIZATION STATUS Childhood Immunizations: See Nurse Assessment Flu Vaccine: See Nurse Assessment - FAMILY HISTORY Family History: reviewed, not pertinent - SOCIAL HISTORY Smoking: denies Substance Use: alcohol Alcohol Use Frequency: occasionally Number of drinks per typical drinking period:: 3-4 drinks Living Situation: family Physical Exam-General - PHYSICAL EXAM-ADULT Initial Vital Signs Reviewed: Yes - CONSTITUTIONAL General Appearance: appears well, alert, mild distress, obese - EYES Eyes: scleral icterus - HEAD, EARS, NOSE, MOUTH & THROAT HENMT: moist mucous membranes - NECK Neck: non-tender, full range of motion, supple, normal inspection - RESPIRATORY Respiratory: chest non-tender, lungs clear, normal breath sounds, no pleuratic chest pain, no respiratory distress, no accessory muscle use - CARDIOVASCULAR Cardiovascular: normal peripheral pulses, tachycardia (102) - GASTROINTESTINAL (ABDOMEN) Abdominal Exam: normal bowel sounds, soft, tenderness. negative: guarding - LYMPHATIC Lymphatic: no adenopathy - MUSCULOSKELETAL Back Exam: normal inspection, no CVA tenderness, no vertebral tenderness Extremity: normal range of motion, non-tender, normal gait, normal inspection, no pedal edema, no calf tenderness, normal capillary refill, pelvis stable - SKIN Integumentary: normal color, normal turgor, warm/dry - NEUROLOGIC Neurologic: grossly normal, no motor/sensory deficits - PSYCHIATRIC Psych/Mental Status: normal mood/affect, normal thought content, normal thought process, oriented x 3 Progress - PLAN OF CARE/RESULTS Progress/Plan/Lab Results: Vital Signs - 8 hr 10/14/18 10:29 Temperature 98.3 F Pulse Rate 102 H Respiratory Rate 18 Blood Pressure 169/81 O2 Sat by Pulse Oximetry 98 Laboratory Results - last 24 hr 10/14/18 10/14/18 10/14/18 10:39 10:39 10:39 WBC 2.05 L RBC 3.47 L Hgb 9.9 L Hct 32.2 L MCV 92.8 MCH 28.5 MCHC 30.7 L RDW Std Deviation 15.9 H Plt Count 52 L MPV 10.3 Immature Gran % (Auto) 0.0 Neut % (Auto) 67.8 Lymph % (Auto) 18.5 L [place] % (Auto) 11.7 H Eos % (Auto) 1.0 Baso % (Auto) 1.0 H Immature Gran # (Auto) 0.00 Neut # (Auto) 1.39 L Lymph # (Auto) 0.38 L Sanders # (Auto) 0.24 Eos # (Auto) 0.02 Baso # (Auto) 0.02 Amylase 41 Urine Source CLEAN CATCH Urine Color YELLOW Urine Clarity CLEAR Urine pH 8.0 Ur Specific [place] 1.005 Urine Protein 1+(30 mg/dL) A Urine Ketones TRACE Urine Blood NEGATIVE Urine Nitrite NEGATIVE Urine Bilirubin NEGATIVE Urine Urobilinogen 4 Urine Microscopic RBC <10 Urine WBC TRACE A Urine Microscopic WBC <10 Ur Epithelial Cells <10 Urine Crystals NONE SEEN Urine Bacteria NEGATIVE Urine Casts NONE SEEN Urine Yeast NONE SEEN Urine Glucose TRACE(50 mg/dL) A Orders Category Date Time Status Saline Loc DIRECTED Care 10/14/18 10:32 Active NPO Diet 10/14/18 10:32 Active FLAT/UPRIGHT ABD/1 VIEW CHEST [RAD] Stat Exams 10/14/18 11:03 Ordered AMYLASE [CHEM] Stat Lab 10/14/18 10:39 Completed CBC WITH ELECTRONIC DIFF [HEME] Stat Lab 10/14/18 10:39 Completed COMPREHENSIVE METABOLIC PANEL [CHEM] Stat Lab 10/14/18 10:39 Received LIPASE [CHEM] Stat Lab 10/14/18 10:39 Received PROTIME WITH INR [COAG] Stat Lab 10/14/18 11:08 Ordered PTT [COAG] Stat Lab 10/14/18 11:[address] W/POSS RFLX CULT [URINALYSIS] Stat Lab 10/14/18 10:39 Completed URINE CULTURE [RM] Routine Lab 10/14/18 11:05 Ordered Result Diagrams: 10/14/18 10:39 10/14/18 10:39 - XRAY 1 XRAY: Bilateral XRAY Study: Abdomen Impression: See EMR Report (EXAM: FLAT/UPRIGHT ABD/1 VIEW CHEST HISTORY: abd pain TECHNIQUE: Flat and upright with chest, four views COMPARISON: 07/14/2017 FINDINGS: The lungs are well expanded. No pneumonia. No cardiomegaly. No free air beneath the diaphragm. The gallbladder has been removed. No bowel obstruction. No organomegaly. No abnormal abdominal calcifications. IMPRESSION: No acute abnormality. Electronically signed by Luis Eduardo Roberson 10/14/2018 11:27 AM 10/14/18 1127 Interpreting Physician: Luis Eduardo Roberson MD Dictated Date/Time: 10/14/18 1126 cc: Arlene Lomeli; Ritesh Young MD) - CONSULTS/PCP/HOSPITALIST Notification #1 *Consult/PCP/Hospitalist*: Dr. Young Time Discussed: 12:48 Reason/Comments: admit Consult Disposition: other (Talk to Dr. Lambert and have him admitted to [facility] for GI consult) #2 Consult: Meena for Dr. Lambert Time Discussed: 12:51 Reason/Comments: Admit Consult Disposition: Will see in ED (Will send to [facility]) Departure - Departure Date of Disposition Decision: 10/14/18 Time of Disposition Decision: 12:49 DIAGNOSIS: Jaundice Cirrhosis of liver Qualifiers: Hepatic cirrhosis type: unspecified hepatic cirrhosis Ascites presence: unspecified Qualified Code(s): K74.60 - Unspecified cirrhosis of liver Disposition: ADMITTED INPATIENT 09 Certified Medical Emergency: Emergent Condition: Serious Referrals and Follow-Ups: Ritesh Young MD [Primary Care Provider] - - Critical Care Note This patient required my direct & personal management of CC.: No Attestation - Physician/ SABI Attestation Patient care was provided by Advanced Practice Provider:: Yes Advanced Practice Provider:: Arlene Lomeli Advanced Practice Provider documentation review:: The Mid-level provider documentation, treatment plan and medical decision making was reviewed by the physician who agrees with all treatment and medical decision making by the P. The physician spent face to face time with patient:: No Advanced Practice Provider documentation review:: Supervising physician onsite and consulted in the evaluation and care of this patient. The physician did not have a face to face encounter with the patient. This chart was documented by the indicated scribe, (Sahra Richardson Scribe) and accurately reflects the services I performed and decisions made by me, Arlene Lomeli CRNP, as attested by the provider's signature.
[2018-10-14 11:42] LABS: PTT 33.1 Seconds (22.3-41.8)
[2018-10-14] MEDS ORDERED: ZOFRAN IV ONE (12:53)
--- NOTE | 2018-10-14 14:35 | Diag Imaging Result Doc PS360 ---
EXAM: US GB < RUQ (LIMITED) HISTORY: abd pain/jaundice TECHNIQUE: Right upper quadrant ultrasound COMPARISON: 01/26/2018 FINDINGS: The pancreas is obscured. The liver is enlarged measuring over 24 cm. There is fatty infiltration. There is a small amount of ascites. The gallbladder is not present. The common bile duct measures 6 mm. Normal right kidney. No hydronephrosis. Incidental note is made of marked splenomegaly measuring 23.9 x 26.3 x 9.9 cm. The aorta and inferior vena cava are poorly seen. IMPRESSION: 1.Hepatomegaly with fatty infiltration 2.Splenomegaly 3.Cholecystectomy Electronically signed by Luis Eduardo Roberson 10/14/2018 2:32 PM
--- NOTE | 2018-10-14 15:00 | HISTORY AND PHYSICAL ---
ADDENDUM: This is a patient of Dr. Young, a 43-year-old with known cirrhosis, diabetic I believe. I think he says he has got some chronic renal failure, although his kidney function is normal. He has got pretty well-compensated cirrhosis, unfortunately history of alcoholic cirrhosis, for which he gets followed in [place]. He says he has never had a biopsy. It sounds like his cirrhosis is early stages, Child's class A, at least as far as I can tell. In any case, the patient developed nausea and vomiting today, abdominal pain, which prompted evaluation. He has a large bruise on the right side of his abdomen, he did not really know. He was a little bit jittery on exam. He did not seem confused to me. He reports no alcohol usage, and I think his alcohol level today was negative. Acetones were negative, but he does have an elevated bilirubin. INR is up a bit, although actually more normal than it was in May. Unclear etiology at this point of his decompensation, unless this is progression of his cirrhosis, but in any case, the patient will be admitted for treatment. On exam to me, his belly is protuberant. I feel like he has got a fluid wave. I feel like he has got ascites, but he may just be obese. He has chronic venous changes. 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 Per PCP request, [facility], and we will continue to follow. I will go ahead and put him on some PPI IV because he is at risk for gastritis and GI bleeding, but the primary team, when they see him, they can decide to continue that or discontinue that, and we will continue to follow. This is a note in conjunction with Meena Schneider. cc: MD Armani Juares MD Gregory S. Cheatham, MD MTDD
--- NOTE | 2018-10-14 16:08 | HISTORY AND PHYSICAL ---
PRIMARY CARE PHYSICIAN: Dr. Young. CHIEF COMPLAINT: Generalized abdominal pain with nausea, vomiting. Also notes a large bruise on the right side of the abdomen and right upper extremity from an unknown origin. HISTORY OF PRESENTING ILLNESS: This is a 43-year-old male who presents to [facility] ER with complaints of generalized abdominal pain with nausea, vomiting. Also notes a large bruise on the right side of his abdomen and right upper extremity from an unknown origin. He has a history of hepatitis and cirrhosis of the liver. His white blood cell count today was 2.05, hemoglobin and hematocrit of 9.9 and 32.2. His total bilirubin is 5.30, AST 104, ALT 29. States he is followed for his cirrhosis by [facility] and that his total bilirubin is normally normal at 1. States when he was 1st diagnosed, his bilirubin was as high as 8. It is felt that he will need a GI consultation, so he will be admitted to the [facility] for further evaluation and treatment. PAST MEDICAL HISTORY: Hypertension, hyperlipidemia, asthma, COPD, cirrhosis secondary to chronic alcoholism but quit in January of last year, gastric ulcers, chronic pain, fibromyalgia, diabetes and gout. PAST SURGICAL HISTORY: Cholecystectomy and back and neck surgery. FAMILY HISTORY: Reviewed and noncontributory. SOCIAL HISTORY: He currently lives alone, is , has 1 child. Does not smoke. No longer drinks alcohol, quitting in January 2018 and no illicit drug use. ALLERGIES: He has no known drug allergies. HOME MEDICATIONS: A current list will need to be obtained reconciled, reviewed, and restarted as appropriate. We will place an order for nursing to update and confirm home medications. LABORATORY DATA: Showed a white blood cell count of 2.05, hemoglobin 9.9, hematocrit 32.2, platelets 52,000, PT and INR of 16.1 and 1.23. Sodium 139, potassium 4, chloride 99, CO2 26, BUN of 4, creatinine 0.4, glucose 222, total bilirubin of 5.30, AST of 104, ALT 29, alkaline phosphatase 187 creatine kinase of 79. Troponin less than 0.010. Amylase 41, lipase 66. Plasma lactate 1.8. Urinalysis was negative. Serum alcohol level showed none detected. Acetone level was negative. Abdomen x-ray showed no acute abnormality. REVIEW OF SYSTEMS: He denied any fever, chills, blurred vision, dizziness, chest pain, coughing, shortness of breath. He was positive for generalized abdominal pain, nausea, vomiting. Denied any constipation, diarrhea, burning or hurting with urination. PHYSICAL EXAMINATION: VITAL SIGNS: On arrival he had a temperature of 98.3 degrees, pulse 102, respirations 18, blood pressure 169/81, saturating 98% on room air. GENERAL: This is a 43-year-old male who is lying in the bed and answers questions appropriately. HEENT: Normocephalic, atraumatic. Normal ENT inspection. Oropharynx and nares are clear. Eyes were noted to have scleral icterus. Pupils are equal, round, reactive to light and accommodation. Extraocular movements are intact. NECK: Normal inspection. Normal range of motion. LUNGS: Clear to auscultation bilaterally with equal lung expansion and chest wall movement. HEART: Regular rate and rhythm. No murmurs, rubs, or gallops. ABDOMEN: Soft, nontender, nondistended. Bowel sounds are present x4 quadrants. MUSCULOSKELETAL: He has 5/5 strength x4 extremities. NEUROLOGICAL: The cranial nerves 2-12 appear grossly intact. ASSESSMENT: 1. Cirrhosis of liver. 2. Pancytopenia. 3. Generalized abdominal pain with nausea, vomiting. 4. Diabetes type 2. PLAN: He will be admitted to [facility] to the medical floor, placed on telemetry. We will update and confirm home medications, do pattern blood sugars with sliding scale insulin. Apply SCDs for DVT prophylaxis. Place on a clear liquid diet. Consult GI to hepatitis profile and repeat a CMP and a CBC in the a.m. Place on normal saline at 70 mL an hour, Nexium 40 mg IV q. 24. Complete his serial lactate. Urine culture is pending. Ammonia level pending and further orders after being seen by attending and by pci security consultant. Dictated by CINTHIA Mallory for Ajith Lambert MD cc: CINTHIA Mallory MD Allen J. Schmidt, MD Gregory S. Cheatham, MD
[2018-10-14] MEDS ORDERED: NEXIUM IV SCH (18:19)
[2018-10-14] MEDS ORDERED: SODIUM CHLORIDE 0.9% INJ SCH ×2 (18:19→18:45)
[2018-10-14] MEDS ORDERED: NEXIUM IV ONE (18:45)
[2018-10-14] MEDS: NS 1,000 ML IV SCH (18:56)
[2018-10-14] MEDS: HUMULIN R SUBQ SCH (19:08)
[2018-10-14] MEDS: ZOFRAN IV PRN (20:12)
[2018-10-14] MEDS ORDERED: NORCO-10 PO ONE (21:57)
[2018-10-15] MEDS: HUMULIN R SUBQ SCH ×5 (02:29→21:43)
[2018-10-15] MEDS: ZOFRAN IV PRN ×4 (05:13→21:43)
[2018-10-15] MEDS ORDERED: NORCO-10 PO ONE (05:45)
[2018-10-15 07:25] LABS: BASO# 0.02 X1000 (0.0-0.2); BASO% 0.8 % (0.0-0.8); HEMATOCRIT 29.9 % (42.0-52.0); HEMOGLOBIN 9.2 g/dL (14.0-18.0); LYMPH# 0.52 X1000 (1.2-3.4); LYMPH% 20.7 % (20.5-51.1); MCH 29.4 PG (27-31); MCHC 30.8 g/dL (33-37); MCV 95.5 FL (81-99); MONO# 0.22 X1000 (0.11-0.59); MONO% 8.8 % (1.7-9.3); MPV 10.5 FL (7.4-10.4); NEUT# 1.65 X1000 (1.4-6.5); NEUT% 65.7 % (42.2-75.2); PLT 49 X1000 (130-400); RBC 3.13 XMIL (4.7-6.1); RDW 16.3 % (11.5-14.5); WBC 2.51 X1000 (4.8-10.8)
[2018-10-15 07:30] LABS: INR 1.24; PROTIME 16.6 Seconds (11.0-16.0)
[2018-10-15 07:38] LABS: AGAP 6; ALB/GLOB RATIO 0.9; ALBUMIN 2.9 g/dL (3.5-5.0); ALKALINE PHOSPHATASE 160 U/L (32-122); BUN 5 mg/dL (8-22); CALCIUM 7.9 mg/dL (8.8-10.2); CHLORIDE 97 mmol/L (98-107); COSMO 267; CREATININE 0.6 mg/dL (0.7-1.2); ESTIMATED GFR > 60; GLUCOSE 165 mg/dL (70-104); GOT 79 U/L (10-34); GPT 23 U/L (10-44); POTASSIUM 3.7 mmol/L (3.5-5.1); SODIUM 133 mmol/L (136-145); TCO2 30 mmol/L (25-35); TOTAL PROTEIN 6.2 g/dL (6.3-8.3)
[2018-10-15] MEDS: NS 1,000 ML IV SCH (08:40)
[2018-10-15] MEDS ORDERED: NEXIUM PO SCH (09:00)
[2018-10-15] MEDS ORDERED: SODIUM CHLORIDE 0.9% INJ SCH (10:15)
[2018-10-15 11:16] LABS: IRON SATURATION 86 %; TIBC 265 ug/dL; TOTAL IRON 229 ug/dL (53-167); UNBOUND IRON 36 ug/dL (112-346)
[2018-10-15] MEDS: MORPHINE IV PRN ×2 (13:10→17:31)
[2018-10-15] MEDS: CENTRUM SILVER PO SCH (13:11)
[2018-10-15] MEDS: NEXIUM IV SCH (13:12)
--- NOTE | 2018-10-15 13:39 | PROGRESS NOTE ---
DATE: 10/15/2018 SUBJECTIVE: This morning, Mr. Robles refers to be feeling the same. He has been hurting everywhere, especially in the abdomen. OBJECTIVE: Vital Signs: Blood pressure is 173/79, pulse is 82, respirations are 18, temperature is 98.0 degrees, patient is saturating 100% on room air. General Examination: Mr. Robles is a 43- year-old, male. He is obese, BMI 38.7. He is in bed. No distress. HEENT: Mucosa is pink and moist. Anicteric. Acyanotic. Neck: Supple. Chest: Air entry is bilaterally reduced. No crepitations. No rhonchi. Cardiovascular: Regular rate and rhythm. Abdomen: Soft. It is distended. It is tender in the right upper quadrant. In the left upper quadrant, there is huge palpable hepatosplenomegaly. Extremities: No pedal edema. The are old chronic changes in the lower extremities, consistent of stasis dermatopathy. Laboratory Data: WBC is 3.51, hemoglobin is 9.2, platelet count of 49,000. Chemistry is also reviewed. ASSESSMENT: 1. Abdominal pain, presumed to be secondary to severe hepatosplenomegaly with stretching of the capsules. The patient is currently on pain medication. We will titrate it accordingly. 2. Massive hepatosplenomegaly, etiology is unclear. Hematology/oncology has been consulted. 3. History of alcoholic liver disease with transaminitis, consistent with alcohol-induced hepatitis. 4. Pancytopenia, likely due to underlying hypersplenism. However, other possible etiologies need to be excluded. Hematology/oncology has been consulted. 5. Ascites. The patient has been ordered for a diagnostic paracentesis. 6. Iron deficiency, noted. cc: MD VIRGIL Sarabia
--- NOTE | 2018-10-15 15:52 | Diag Imaging Result Doc PS360 ---
EXAM: US ABD PARACENTESIS W S/I 10/15/2018 HISTORY: ascites TECHNIQUE: Ultrasound-guided paracentesis COMMENT: The risks and benefits of the procedure including the possibility of bleeding infection puncture of hollow viscus or reaction to lidocaine was discussed with the patient and he agreed to the procedure. Following sterile preparation the skin over the right lower abdomen and administration 1% lidocaine to the skin and deeper soft tissues, a 22-gauge spinal needle was advanced under ultrasonographic guidance into a pocket in the lower right abdomen and 10 mL of clear yellow fluid was aspirated. There are no immediate complications. IMPRESSION: Successful ultrasound-guided paracentesis. Electronically signed by Luisito Molina 10/15/2018 3:50 PM
--- NOTE | 2018-10-15 16:19 | Diag Imaging Result Doc PS360 ---
EXAM: CT ABD/PELVIS W/IV CONT ONLY 10/15/2018 HISTORY: Abdominal pain TECHNIQUE: This exam was performed using automated exposure control, adjustment of mA or kV according to patient size, and/or use of iterative reconstruction technique. COMMENT: There is minimal atelectasis in the right costophrenic sulcus. This was not present on 01/26/2018. There is ascites. This was not demonstrated previously. There is nodularity of the liver consistent with cirrhosis. The spleen is markedly enlarged measuring over 22 cm in AP dimension compared to 21.4 cm previously. There are numerous variceal collaterals present adjacent to the peritoneal surface in the right flank. There are also varices in the omentum and retroperitoneum. There is no evidence of aortic aneurysm. There is no evidence of stones or hydronephrosis in the kidneys. The gallbladder has been resected. The pancreas is stable in appearance. The portal vein appears to be patent. Pelvis: The appendix is not well demonstrated but there does not appear to be any evidence of appendicitis. The spleen extends slightly into the pelvis on the left. The urinary bladder is not distended. The regional skeleton is intact. IMPRESSION: Worsened splenomegaly and ascites. Bibasilar atelectasis. Electronically signed by Luisito Molina 10/15/2018 4:17 PM
--- NOTE | 2018-10-15 16:29 | GASTROENTEROLOGY CONSULTATION ---
DATE: 10/15/2018 ATTENDING PHYSICIAN: Dr. Oliveira. PRIMARY CARE DOCTOR: Dr. Young. REASON FOR CONSULTATION: Liver cirrhosis. HISTORY OF PRESENT ILLNESS: Mr. Robles is a 43-year-old male, who was diagnosed with liver cirrhosis in December 2017. He follows up with [facility]. He had history of alcoholism, was drinking more than 6 beers a day for more than 25 years; he quit in December 2017. He has never had a liver biopsy. He was noted to have chronic elevation in liver enzymes and elevated jaundice; was watched every 6 months by [facility]. He had EGD and colonoscopy done at [place] by physician in [facility] which showed evidence of possible esophageal varices and 2 small polyps. He does not recall the name of the doctor. He was admitted on 10/12/2028 for symptoms of general abdominal pain with nausea, vomiting, and bruising on the skin. He has also seen Dr. Mohan a few years ago for iron-deficient anemia. On admission, he had an ultrasound that: 1. Showed evidence of hepatomegaly with fatty infiltration. 2. Splenomegaly. Spleen measuring 23.9 to 26.3 and then to 29.9 cm. 3. He also had evidence of a small amount of ascites. He had cholecystectomy. The patient denies any vomiting blood or blood in the stools. He does complain of easy bruising or bleeding. He complains of yellowish discoloration of the urine. He denies any itching. He complains of abdominal pain in the pancreatic region which is cramping in nature. PAST MEDICAL HISTORY: Hypertension, hyperlipidemia, asthma, COPD, cirrhosis likely secondary to chronic alcoholism; he quit in December 2017. History of gastric ulcers, colon polyps, question of varices, chronic pain, fibromyalgia, diabetes, gout, obesity. PAST SURGICAL HISTORY: Cholecystectomy, neck and back surgery. FAMILY HISTORY: Denies any history of liver disease in the family. SOCIAL HISTORY: He lives alone. He is ; he has 1 child. Does not smoke. He quit drinking in December 2017. He denies any history of illicit drug abuse. ALLERGIES: No known drug allergies. MEDICATIONS AT HOME: Lasix 40 mg once daily, Januvia 100 mg once daily, colchicine 0.6 mg b.i.d. as needed, lansoprazole 30 mg once daily, vitamin B 12 as directed, methocarbamol 5 mg p.o. b.i.d., indomethacin 50 mg p.o. b.i.d., albuterol inhaler, [place] 10 three times daily, tramadol 3 times daily 50 mg, Bentyl 10 mg as needed, spironolactone 50 mg once daily, Uloric 8mg daily gabapentin 6 mg 4 times daily. MEDICATIONS IN THE HOSPITAL: Nexium 40 mg IV b.i.d., sliding-scale regular insulin, multivitamin once daily. Normal saline at 70 mL per hour, Zofran 4 mg IV every 4 hours as needed. He is on clear liquid diet; we will start on Ensure 3 times daily. REVIEW OF SYSTEMS: Denies any fevers, rigors, chills, chest pain, shortness of breath, dyspnea. Denies any vomiting blood or passing blood in the stools. He is complaining of abdominal pain described above. Does complain of fibromyalgia and has been on [place] at home. Denies any blood in the urine, as well as bruising and bleeding. Denies any neurologic complaints. PHYSICAL EXAMINATION: Vital Signs: Temperature 98.1, pulse rate of 84, respiratory rate 20, blood pressure 155/60 satting 97% on room air. Body weight of 317 pounds 9.6 ounces. BMI of 38.7 kg/m2. General appearance: Morbidly obese, lying in bed in no acute distress. HEENT: Pale conjunctivae. Icteric sclerae. Pupils equal, reactive to light. Neck: Supple. Abdomen: Protuberant, obese, splenomegaly; I could feel the spleen in the periumbilical region. This is around the area where he is hurting. There is evidence of possible small amount of ascites. No guarding or rebound. Extremities: No cyanosis, clubbing. Neurologic: Alert, awake, oriented x3. LABS: Hemoglobin and hematocrit is 9.2 and 29.9, white count of 2.51, platelet count of 49. INR of 1.24, PTT of 16.6. Sodium 131, potassium 3.7, chloride 97, bicarbonate 39.9, anion gap of 6. BUN of 5, creatinine 0.6, glucose of 165, calcium is 7.9. Total bilirubin is 8.5, AST 79, ALT 23, alkaline phosphatase 160, total protein 6.2, albumin of 2.9, amylase of 41, lipase of 66 and lactate of 1.1. Urinalysis showing 1+ protein, trace white cells, trace glucose. Acetone level is negative. Blood alcohol level zero. Blood cultures x2 were drawn yesterday; they are currently pending. Urine culture is also currently pending. IMAGING: In the form of ultrasound described in HPI and prior imaging is abdominal x-ray on 10/14 which showed evidence of no acute abnormality. He had a CT scan of the abdomen and pelvis on 01/26/2018 which was stable, hepatosplenomegaly and trace fluid in the paracolic gutters. No definite acute pathology otherwise. IMPRESSION AND PLAN: 1. Liver cirrhosis likely secondary to alcoholism. He has quit since December 2017. He follows up at [facility]. Will check chronic liver disease workup as his liver function and liver enzymes are getting worse. He is getting more jaundiced. He has quit alcohol more than 10 months. We will try to obtain records from [facility] physician about his last esophagogastroduodenoscopy and colonoscopy. 2. Abdominal pain. We need to do abdominal ultrasound, possible diagnostic paracentesis to evaluate for spontaneous bacterial peritonitis. 3. Pancytopenia and splenomegaly massive. In this regard, we will call Hematology to evaluate for any evidence of any blood disorders. 4. Obesity. Patient counseled to lose weight. 5. Anemia. Continue to watch for now. Transfuse as needed. 6. Gastrointestinal prophylaxis with proton pump inhibitors. The patient had been taking nonsteroidal anti-inflammatory drugs at home for gout, so will increase the Nexium twice daily. 7. Gout, being managed by primary care team. 8. Thrombocytopenia likely secondary to liver cirrhosis and splenomegaly. 9. Type 2 diabetes. Will continue sliding scale. We will follow along. The above plan of care discussed with the patient and all questions answered. Please call us with any further questions. cc: MD Jose Cruz Villalta MD Gregory S. Cheatham, MD
[2018-10-15 19:50] LABS: ALBUMIN BODY FLUID 0.4 g/dL; AMYLASE BODY FLUID 10 U/L; TOTAL PROT BODY FLUID 0.9 g/dL
[2018-10-15 20:34] LABS: BODY FLUID SOURCE PERITONEAL FLUID; MONOS 91 %; POLYS 9 %; WBC BF 60 /cumm
[2018-10-16] MEDS: NS 1,000 ML IV SCH (00:34)
[2018-10-16] MEDS: NEXIUM IV SCH ×3 (00:35→21:59)
[2018-10-16] MEDS: ZOFRAN IV PRN ×6 (01:51→22:36)
[2018-10-16] MEDS: HUMULIN R SUBQ SCH ×4 (06:28→21:57)
[2018-10-16] MEDS: MORPHINE IV PRN ×5 (06:36→22:35)
[2018-10-16 08:04] LABS: BASO# 0.02 X1000 (0.0-0.2); BASO% 0.8 % (0.0-0.8); EOS# 0.05 X1000 (0.0-0.7); EOS% 2.1 % (0.0-10.0); HEMATOCRIT 29.1 % (42.0-52.0); LYMPH# 0.64 X1000 (1.2-3.4); LYMPH% 26.4 % (20.5-51.1); MCH 29.7 PG (27-31); MCHC 30.9 g/dL (33-37); MONO# 0.21 X1000 (0.11-0.59); MONO% 8.7 % (1.7-9.3); MPV 10.3 FL (7.4-10.4); PLT 58 X1000 (130-400); RBC 3.03 XMIL (4.7-6.1); RDW 16.4 % (11.5-14.5); WBC 2.42 X1000 (4.8-10.8)
[2018-10-16 08:26] LABS: AGAP 10; ALB/GLOB RATIO 0.9; ALBUMIN 2.9 g/dL (3.5-5.0); ALKALINE PHOSPHATASE 149 U/L (32-122); BUN 5 mg/dL (8-22); CALCIUM 8.5 mg/dL (8.8-10.2); CHLORIDE 99 mmol/L (98-107); COSMO 268; CREATININE 0.7 mg/dL (0.7-1.2); ESTIMATED GFR > 60; GLUCOSE 151 mg/dL (70-104); GOT 76 U/L (10-34); GPT 22 U/L (10-44); POTASSIUM 3.8 mmol/L (3.5-5.1); SODIUM 134 mmol/L (136-145); TCO2 25 mmol/L (25-35); TOTAL BILIRUBIN 7.25 mg/dL (0.20-1.00); TOTAL PROTEIN 6.1 g/dL (6.3-8.3)
[2018-10-16 08:37] LABS: LDH 151 U/L (135-225)
[2018-10-16] MEDS: ULORIC PO SCH (10:21)
[2018-10-16] MEDS: CENTRUM SILVER PO SCH (10:22)
--- NOTE | 2018-10-16 11:18 | HEMO/ONC CONSULTATION ---
DATE: 10/15/2018 INCOMPLETE, DICTATION BEGINS HERE CHIEF COMPLAINT: We have been consulted for Mr. Robles regarding his splenomegaly and recent pancytopenia. HISTORY OF PRESENT ILLNESS: Mr. Robles is a 43-year-old gentleman who presented to the [facility] ER with complaints of generalized abdominal pain with nausea and vomiting yesterday afternoon. He has a history of hepatitis and cirrhosis of the liver. He is followed by [facility] regarding cirrhosis. He began seeing our clinic in 2016 for iron- deficiency anemia. MEDICAL HISTORY: Hypertension, hyperlipidemia, asthma, COPD, cirrhosis secondary to chronic alcoholism, gastric ulcers, chronic pain, fibromyalgia, diabetes, gout, renal failure, psoriatic arthritis, and neuropathy. PAST SURGICAL HISTORY: Cholecystectomy, back and neck surgery, knee surgery x4. ALLERGIES: No known drug allergies. SOCIAL HISTORY: Nonsmoker. States he quit drinking alcohol in January 2018. Denies illicit drug use. HOME MEDICATION: Albuterol, vitamin B12, Bentyl, Uloric, Lasix, gabapentin, [place] 10, Indocin, omeprazole, methocarbamol, Januvia, spironolactone, and tramadol. REVIEW OF SYSTEMS: He complains of generalized abdominal pain, nausea, and vomiting. PHYSICAL EXAMINATION: Vital Signs: Temperature 98.1 degrees F, heart rate 82, blood pressure 173/79, O2 saturation 100% on room air. 8/10 abdominal pain. General: The patient is lying in bed, appropriate to situation, in no acute distress. Respiratory: Clear to auscultation. Cardiovascular: S1, S2 noted. Regular rate and rhythm. Abdomen: Soft, distended, protuberant, and tender all over. Musculoskeletal: Moves all 4 extremities well. Neurological: Alert and oriented x3. No focal deficits noted. LABORATORY DATA: WBC 2.51, hemoglobin 9.2, hematocrit 29.9, platelets 49,000. Sodium 133, potassium 3.7, creatinine 0.6, calcium 7.9, bilirubin 8.5. Serum alcohol level shows nondetected. Abdominal x-ray shows hepatomegaly with fatty infiltration and splenomegaly. ASSESSMENT AND PLAN: 1. Liver Cirrhosis secondary to alcoholism: Patient is followed by [facility]. Will review records from previous GI workup and continue to monitor. 2. Pancytopenia dejesus to splenomegaly. Dictated by CINTHIA Severino for Marc Mohan MD Patient seen and examined. Patient admitted with abdominal pain and nausea vomiting. He was noted to have pancytopenia. He has history of cirrhosis due to alcohol and examination reveals significant splenomegaly. His pancytopenia is due to his splenomegaly. At this point I recommend no further evaluation. Support blood counts with transfusion as needed. Discussed with Dr. Oliveira. Marc Mohan M.D. cc: MD Jose Cruz Angela MD [facility]
[2018-10-16 12:35] LABS: HEPATITIS PROFILE ACUTE SEE COMMENTS
--- NOTE | 2018-10-16 13:15 | PROVIDER PROGRESS NOTE ---
Progress Note SUBJECTIVE: No acute overnight events. Patient denies N/V/F, CP, SOB, abdominal pain, diarrhea, or rectal bleeding. Diagnostic paracentesis was negative for SBP yesterday. Upon interview, patient reports that his abdominal pain and jaundice started the day after he started taking copious amounts of indomethecin and colchicine for gout flare. He also recently started taking a supplement containing magnesium and other ingredients OTC, which he cannot recall the name of. He is followed in the transplant clinic at [facility] by Dr. Jang. He has remained abstinent from alcohol since 2018 and remains compliant with home diuretics. He does report having EGD last year showing varices. He denies prior GI bleeding. OBJECTIVE: Last Vital Signs Temp 97.9 F 10/16/18 12:00 Pulse 76 10/16/18 12:00 Resp 16 10/16/18 12:00 BP 178/76 10/16/18 12:00 Pulse Ox 100 10/16/18 12:00 Height 6 ft 4 in Weight 317 lb 9.6 oz GEN: awake, alert, NAD HEENT: icteric sclera, MMM, EOMI NECK: supple, no jvd CV: RRR, no murmurs PULM: CTAB, no wheezing ABD: obese, soft NT/ND, NABS, no rebound or guarding, minimal ascites EXT: no cce NEURO: nonfocal, no asterixis LABS: 10/15/18 10/15/18 10/15/18 10:35 10:35 14:30 WBC Hgb Plt Count Sodium Potassium Chloride BUN Creatinine Glucose Iron 229 H TIBC 265 % Saturation 86 Ferritin 91 Total Bilirubin AST ALT Alkaline Phosphatase Total Protein Albumin Vitamin B12 Folate Fluid WBC 60 Fluid Polynuclear WBCs 9 10/16/18 10/16/18 10/16/18 06:00 07:05 07:05 WBC 2.42 L Hgb 9.0 L Plt Count 58 L Sodium 134 L Potassium 3.8 Chloride 99 BUN 5 L Creatinine 0.7 Glucose 151 H Iron TIBC % Saturation Ferritin Total Bilirubin 7.25 H AST 76 H ALT 22 Alkaline Phosphatase 149 H Total Protein 6.1 L Albumin 2.9 L Vitamin B12 > 2000 H Folate Fluid WBC Fluid Polynuclear WBCs 10/16/18 07:05 WBC Hgb Plt Count Sodium Potassium Chloride BUN Creatinine Glucose Iron TIBC % Saturation Ferritin Total Bilirubin AST ALT Alkaline Phosphatase Total Protein Albumin Vitamin B12 Folate 14.3 Fluid WBC Fluid Polynuclear WBCs Acute hepatitis panel and VELIA negative A/P: Mr. Thom Robles is a 43 year old man with history of colonic polyps, pancytopenia, iron deficiency, decompensated ETOH cirrhosis c/b ascites, es ophageal varices who presented with abdominal pain and worsening jaundice. His LFTs show cholestatic pattern. Infectious workup has been negative to date. He has been abstinent from alcohol. I suspect drug induced-liver injury. It is rare from indomethacin or colchicine. I am curious to which supplement he started taking, which could be responsible for acute worsening of his LFTs, which are now downtrending. He is not in liver failure. Mental status and INR are normal. Renal function preserved. #Acute liver injury: trend LFTs, INR daily; I have called [facility] and left a message for Dr. Jang; awaiting response; avoid hepatotoxic agents #Abdominal pain: suspect repeated to above #Pancytopenia: likely 2/2 to cirrhosis; hematology consulted and following; no overt bleeding; - SCDs for DVT ppx - no heparin products - do not transfuse pRBCs unless hgb <7, goal between 7-8 - do not transfuse platelets unless patient is having overt GI bleeding AND platelets <50K #Decompensated cirrhosis: MELD-Na 21 - Cirrhosis: 2/2 ETOH; chronic liver disease workup pending; I suspect this will be negative since he is followed at [facility] - Ascites: minimal on exam and imaging; no SBP: restart home diuretics upon discharge (lasix 20mg and aldactone 50mg daily) - EV: prior EGD in 2018 showed esophageal varices; he should be on propranolol or nadalol; however, will defer to primary executive manager - HCC: CT negative for hepatoma - PSE: none prior; avoid sedating meds - OLT: followed in [facility] liver transplant clinic; not on waitlst; MELD-Na 21 #History of PUD: on PPI; transition to oral meds #FEN: advance diet to cardiac diet Will follow with you. Please call with questions. If he is tolerating diet and LFTs continue to downtrend, then he can be discharged over weekend to be followe d at [facility].
[2018-10-16] MEDS: LASIX PO SCH (14:43)
--- NOTE | 2018-10-16 15:05 | PROGRESS NOTE ---
DATE: 10/16/2018 SUBJECTIVE: This morning Mr. Robles refers to be feeling slightly better. No acute complaints. OBJECTIVE: Vital Signs: Blood pressure 178/76, pulse 70's, respirations 16, and temperature is 97.9 degrees. General: Mr. Robles is a 43-year-old male. He is in bed in no distress. Mucosa is pink, and slightly icteric. Neck: Supple. Chest: Good air entry bilaterally. There was no crepitations. No rhonchi. Cardiovascular: Regular rate and rhythm. Abdomen: Soft. Mildly tender in the upper quadrants. There is a large hepatosplenomegaly. Extremities: No pedal edema. [employer]: The patient is awake, alert, and oriented. Musculoskeletal: There is stasis dermatopathy on the both lower extremities. LABORATORY DATA: WBC is 2.42, hemoglobin is 9.0, and platelet count of 58,000. Chemistry is also reviewed and unremarkable. Total bilirubin is down to 7.26. The patient's fluid analysis yesterday was not consistent with SBP, however, his SAAG was more than 1.1 which is consistent with portal hypertension. ASSESSMENT: 1. Cirrhosis of the liver due to alcohol induced liver injury. This has been complicated with portal hypertension and splenomegaly, and mild ascites. GI is on board. The MELD score is 16 with low sodium. Child-zhao is B with a score of 9. 2. Abdominal pain on presentation secondary to hepatosplenomegaly. 3. 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 4. Ascites. Patient is status post diagnostic paracenteses. The analysis SAAG was more than 1.1 which is consistent with portal hypertension physiology. 5. Iron deficiency noted. In general, I think Mr. Robles is doing a lot better from the GI notes today. It appears they have been in contact with Dr. Jang in [place] and they are waiting on his further recommendations. Patient has been restarted on his diuretic therapy. IV fluids have been discontinued. cc: Jose Cruz Oliveira MD [facility]
--- NOTE | 2018-10-16 15:58 | HEMO/ONC PROGRESS NOTE ---
DATE: 10/16/2018 SUBJECTIVE: Patient is lying on his right side, still in bed this morning. He awakes easily to conversation. He is in a pleasant mood and states his pain has decreased some. He states his abdomen does remain somewhat bloated. OBJECTIVE: Vital Signs: Temperature 98.6 degrees, heart rate 78, respiratory rate 18, blood pressure 175/77, O2 saturation 100% on room air. 3 out of 10 pain. General: The patient is obese, lying flat on his side in the bed. No acute distress. Lung: Lung sounds clear to auscultation. Cardiovascular: S1, S2 noted. Regular rate and rhythm. Abdomen: Soft, significantly distended. Most tender in the right upper quadrant, but it is tender all over. Hepatosplenomegaly notable. Extremities: Significant stasis dermatitis to both lower extremities. Able to move all extremities. LABORATORY DATA: WBC 2.42, hemoglobin 9.0, hematocrit 29.1, platelet count 58,000. Sodium 134, potassium 3.8, creatinine 0.7, calcium 8.5, bilirubin 7.25. Iron profile adequate. ASSESSMENT AND PLAN: 1. Abdominal pain with nausea and vomiting presumed secondary to hepatosplenomegaly. Continue with pain medications and nausea medications per the medical team. 2. Massive hepatosplenomegaly. 3. Alcohol cirrhosis with transaminitis. This is consistent with alcohol- induced hepatitis. 4. Pancytopenia. This is likely due to underlying hypersplenism. 5. Ascites. Diagnostic paracentesis has been ordered, results pending. 6. Iron deficiency. Iron and ferritin appear to be adequate. We will continue to monitor. Dictated by CINTHIA Severino for Marc Mohan MD Patient seen and examined. As above. Cirrhosis and splenomegaly causing pancytopenia. Continue to support anemia and thrombocytopenia with transfusion if needed. No further recommendations from my standpoint. I will sign off. Please call with any questions. Marc Mohan M.D. cc: MD Jose Cruz Angela MD [facility]
[2018-10-17] MEDS: MORPHINE IV PRN ×3 (02:42→10:35)
[2018-10-17] MEDS: ZOFRAN IV PRN ×3 (02:42→10:35)
[2018-10-17] MEDS: HUMULIN R SUBQ SCH ×2 (06:02→13:23)
[2018-10-17 07:46] LABS: INR 1.29; PROTIME 17.1 Seconds (11.0-16.0)
[2018-10-17 07:50] LABS: BASO# 0.02 X1000 (0.0-0.2); BASO% 0.8 % (0.0-0.8); EOS# 0.06 X1000 (0.0-0.7); EOS% 2.4 % (0.0-10.0); HEMATOCRIT 29.9 % (42.0-52.0); HEMOGLOBIN 9.2 g/dL (14.0-18.0); LYMPH% 23.9 % (20.5-51.1); MCH 29.6 PG (27-31); MCHC 30.8 g/dL (33-37); MCV 96.1 FL (81-99); MONO# 0.31 X1000 (0.11-0.59); MONO% 12.4 % (1.7-9.3); MPV 10.4 FL (7.4-10.4); NEUT# 1.52 X1000 (1.4-6.5); NEUT% 60.5 % (42.2-75.2); PLT 62 X1000 (130-400); RBC 3.11 XMIL (4.7-6.1); RDW 16.6 % (11.5-14.5); WBC 2.51 X1000 (4.8-10.8)
[2018-10-17 08:02] LABS: AGAP 9; ALKALINE PHOSPHATASE 139 U/L (32-122); BUN 6 mg/dL (8-22); CALCIUM 8.4 mg/dL (8.8-10.2); CHLORIDE 101 mmol/L (98-107); COSMO 270; CREATININE 0.6 mg/dL (0.7-1.2); ESTIMATED GFR > 60; GLUCOSE 148 mg/dL (70-104); GOT 69 U/L (10-34); GPT 21 U/L (10-44); POTASSIUM 3.8 mmol/L (3.5-5.1); SODIUM 135 mmol/L (136-145); TCO2 25 mmol/L (25-35); TOTAL BILIRUBIN 7.22 mg/dL (0.20-1.00); TOTAL PROTEIN 6.1 g/dL (6.3-8.3)
[2018-10-17] MEDS ORDERED: ALDACTONE PO SCH (09:00)
[2018-10-17] MEDS: CENTRUM SILVER PO SCH (10:06)
[2018-10-17] MEDS: LASIX PO SCH (10:06)
[2018-10-17] MEDS: ULORIC PO SCH (10:06)
[2018-10-17] MEDS: NEXIUM IV SCH (10:07)
[2018-10-17 11:44] VITALS: BP 161/69
--- NOTE | 2018-10-18 07:51 | DISCHARGE SUMMARY ---
ADMISSION DATE: 10/14/2018 DISCHARGE DATE: 10/17/2018 DISPOSITION: Home. FOLLOWUP: Followup will be with: 1. Dr. Young. 2. Dr. Salazar. 3. Dr. Coleman in [place]. CONSULTATIONS DURING THIS ADMISSION: GI was consulted. The patient was seen by Dr. Reyes, and followed up by Dr. Salazar. INVASIVE PROCEDURES DONE DURING THIS ADMISSION: Ultrasound-guided diagnostic paracentesis was done, where 10 mL of clear yellowish fluid was aspirated, with no immediate consequences. IMAGING STUDIES OF SIGNIFICANCE: Abdominal ultrasound did show hepatomegaly with fatty infiltration, splenomegaly, and cholecystectomy. A CT scan of the abdomen and pelvis showed worsening splenomegaly and ascites, bibasilar atelectasis. ADMISSION DIAGNOSES: 1. Cirrhosis of the liver. 2. Pancytopenia. 3. Generalized abdominal pain and nausea. 4. Diabetes mellitus. DIAGNOSES AT TIME OF DISCHARGE: 1. 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 MELD score 16 with low sodium. Child Oliveira B with a score of 9. 2. Abdominal pain on presentation secondary to hepatosplenomegaly. 3. 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 4. Ascites, status post diagnostic paracenteses with fluid analysis showing SAAG more than 1.1, consistent with portal hypertension physiology. 5. Iron deficiency noted. 6. Acute hepatitis, presumably drug-induced (indomethacin). DISCHARGE MEDICATIONS: 1. Furosemide 40 mg p.o. daily. 2. Januvia 100 mg p.o. daily. 3. Colchicine 0.5 b.i.d. 4. Lansoprazole 30 mg p.o. daily. 5. Cyanocobalamin 1000 mcg p.o. daily. 6. Tramadol 50 mg p.o. daily. 7. Spironolactone 50 mg p.o. daily. 8. Gabapentin 600 four times per day. 9. Centrum 1 tablet daily. Medication that has been discontinued is indomethacin. PRESENTING COMPLAINT: Generalized abdominal pain, nausea, and vomiting. HISTORY OF PRESENT COMPLAINT: Mr. Robles is a 43-year-old male who is known to have cirrhosis of the liver, presented to the emergency department because of abdominal pain, was found to have elevated liver enzymes. The patient was transferred from [place] to [facility] for higher level of care. HOSPITAL COURSE: Mr. Robles was admitted to the medical floor, was seen on a daily basis. GI was consulted. The patient was seen by Dr. Reyes, and followed up by Dr. Salazar. An attempt was made by Dr. Salazar to reach out to Dr. Coleman. During the hospital course, Mr. Robles underwent ultrasound-guided paracentesis to rule out SBP, which was negative, but the fluid analysis was consistent with portal hypertension physiology, most likely related to cirrhosis of the liver. He did, however, gradually improve during the hospital course. The bilirubin continued to trend down, and he started feeling a lot better. Abdominal pain has subsided. There is the thought that his acute liver injury was a result of indomethacin (drug-induced liver injury), which seems to have recovered once the indomethacin has been withdrawn. This morning, he feels a lot better. He has been tolerating his diet. We think he is stable for discharge. His vitals show blood pressure 150/66, pulse of 78, respirations 18, temperature 99.2 degrees. Physical exam is unchanged. Still has remarkable hepatosplenomegaly on abdominal exam, but he is less jaundiced than before. He is going to follow up with Dr. Salazar, and he has been advised to follow up with GI in [place]. Discharge instructions have been discussed. We have stressed the utmost importance to avoid any NSAIDs and any other hepatotoxins at this point. TIME SPENT: Time spent for discharge was 35 minutes. cc: Jose Cruz Oliveira MD
== END 2018-10-17 13:21 | disposition home or self-care (01) | DRG 433 ==
LOC: P.ED 10:21 → 3N 14:14 → SUATTDRO 14:14
PROVIDERS: ADMIT Internal Medicine; ATTEND Internal Medicine
CPT/HCPCS: 49083; 74022; 74177; 76705; 80053; 80074; 80307; 80320; 81001; 82009; 82042; 82055; 82103; 82140; 82150; 82390; 82550; 82607; 82728; 82746; 82948; 83516; 83540; 83550; 83605; 83615; 83690; 84157; 84484; 85025; 85610; 85730; 86038; 86039; 86255; 87015; 87040; 87070; 87075; 87088; 87116; 87206; 89051; 94761; 99285; A9270; G0480; G6040; J2270; J2405; J7030; Q9967; XXXXX

== ENCOUNTER 2019-04-02 18:07 | Inpatient (IN) ==
[2019-04-02 18:58] LABS: BILIRUBIN URINE 2+ (NEGATIVE); BLOOD URINE NEGATIVE (NEGATIVE); CLARITY CLEAR (CLEAR); COLOR YELLOW; GLUCOSE URINE NEGATIVE (NEGATIVE); KETONE URINE NEGATIVE (NEGATIVE); LEUKOCYTES URINE NEGATIVE (NEGATIVE); NITRITE URINE NEGATIVE (NEGATIVE); PH URINE 6.5; PROTEIN URINE TRACE mg/dL (NEGATIVE); UROBILINOGEN URINE 4 mg/dL
[2019-04-02 18:59] LABS: URINE BACTERIA 1+ /HFP; URINE EPITHELIAL CELLS <10 /HPF (<10); URINE RBC <10 /HPF (<10); URINE SOURCE CLEAN CATCH; URINE WBC <10 /HPF (<10)
--- NOTE | 2019-04-02 19:03 | Diag Imaging Result Doc PS360 ---
EXAM: CHEST-1 VIEW HISTORY: SOB TECHNIQUE: Single view COMPARISON: 01/23/2019 FINDINGS: Poor inspiratory effort. The heart is mildly prominent. The vessels are not distended. There are no infiltrates. No effusion identified. IMPRESSION: Mild cardiomegaly Electronically signed by Luis Eduardo Roberson 04/02/2019 7:01 PM
[2019-04-02 19:13] LABS: BE -0.1 mmoll (-3.0-3.0); BLOOD TYPE ARTERIAL; HCO3-(ACT) 24.8 mmoll (20.0-26.0); METHB 1.4 % (0.0-1.5); O2(CT) 11.9 mL/dL (15.0-23.0); O2HB 94.4 % (95.0-99.0); PCO2(98.6) 30 mmHg (35-45); PO2(98.6) 75 mmHg (60-100); SAMPLE BLOOD; SAO2 99.5 % (95.0-100.0); THB 8.9 g/dL (11.5-17.4); pH(98.6) 7.49 (7.35-7.45)
[2019-04-02 19:16] LABS: ALLEN TEST YES; MODALITY ROOM AIR
[2019-04-02 19:37] LABS: BASO# 0.03 X1000 (0.0-0.2); BASO% 0.7 % (0.0-0.8); EOS# 0.05 X1000 (0.0-0.7); EOS% 1.2 % (0.0-10.0); HEMATOCRIT 27.9 % (42.0-52.0); HEMOGLOBIN 8.4 g/dL (14.0-18.0); IMM GRAN# 0.01 X1000 (0.0-0.04); IMM GRAN% 0.2 % (0.0-0.5); LYMPH% 19.7 % (20.5-51.1); MCH 27.8 PG (27-31); MCHC 30.1 g/dL (33-37); MCV 92.4 FL (81-99); MONO# 0.61 X1000 (0.11-0.59); MPV 9.5 FL (7.4-10.4); NEUT# 2.57 X1000 (1.4-6.5); NEUT% 63.2 % (42.2-75.2); PLT 60 X1000 (130-400); RBC 3.02 XMIL (4.7-6.1); RDW 21.7 % (11.5-14.5); WBC 4.07 X1000 (4.8-10.8)
[2019-04-02] MEDS ORDERED: LASIX IV ONE (19:41)
[2019-04-02 19:47] LABS: INR 1.44; PROTIME 18.3 Seconds (11.0-16.0)
[2019-04-02 19:53] LABS: AGAP 10; ALBUMIN 2.8 g/dL (3.5-5.0); ALKALINE PHOSPHATASE 341 U/L (32-122); BUN 7 mg/dL (8-22); CALCIUM 8.1 mg/dL (8.8-10.2); CHLORIDE 97 mmol/L (98-107); CK PROFILE 139 U/L (24-204); COSMO 260; CREATININE 0.6 mg/dL (0.7-1.2); ESTIMATED GFR > 60; GLUCOSE 151 mg/dL (70-104); GOT 212 U/L (10-34); GPT 45 U/L (10-44); POTASSIUM 3.7 mmol/L (3.5-5.1); SODIUM 129 mmol/L (136-145); TCO2 22 mmol/L (25-35)
[2019-04-02] MEDS ORDERED: ZOFRAN IV ONE (19:55)
[2019-04-02] MEDS ORDERED: ROCEPHIN 1 GM in NS 50 ML IV ONE (20:30)
--- NOTE | 2019-04-02 22:14 | PROVIDER DOCUMENTATION ---
This chart was entered by Clemente Patel Scribe, acting as scribe for Shelli Valverde MD. HPI-General Adult - General Chief Complaint: SEPSIS ALERT - P Stated Complaint: SWOLLEN BELLY/LEGS Time Seen by Provider: 04/02/19 19:06 Source: patient Allergies/Adverse Reactions: Patient Allergies Allergy/AdvReac Type Severity Reaction Status Date / Time No Known Allergies Allergy Verified 10/23/17 12:05 Home Medications: Home Medication List Medication Instructions Recorded Confirmed Last Taken Type Furosemide [Lasix] 40 mg PO DAILY 12/30/13 04/03/19 04/03/19 00:00 History Sitagliptin [Januvia] 100 mg PO DAILY #30 tablet 10/22/14 04/03/19 04/02/19 08:00 Rx Methocarbamol 500 mg PO BID PRN 01/26/18 04/03/19 04/02/19 08:00 History Gabapentin 800 mg PO 4XDAY 10/14/18 04/03/19 04/02/19 08:00 History Hydrocodone/APAP 10 mg/325 mg 1 ea PO TID PRN 01/23/19 04/03/19 04/02/19 08:00 History [[place]-10] Lansoprazole 30 mg PO DAILY@0700 04/02/19 04/03/19 04/02/19 08:00 History Tramadol HCl 50 mg PO BID 04/02/19 04/03/19 04/01/19 16:00 History Colchicine [Colcrys] 0.6 mg PO DAILY PRN 04/03/19 04/03/19 Unknown History - History of Present Illness -Gen Adult Nature of Presenting Problems: Pt is a 44 yom who presents to the ED with a CC of swelling. Pt complains of swelling to his abdomen and to his lower extremities bilaterally. Pt also complains of shortness of breath. Pt reports a hx of kidney failure. Pt reports he has gained 25 pounds this week.He endorses compliance with his Lasix and his spironolactone. He states that he has cirrhosis because he used to drink heavily but does not drink anymore. Location of Pain/Injury: reports: abdomen, lower extremity (Bilaterally), generalized Pain Radiation: reports: no radiation Quality of Pain: reports: fullness, tightness Severity: reports: mild Onset/Duration: reports: 1 week ago Timing: reports: still present Associated Symptoms: reports: swelling/mass in abdomen, other (Edema) Similar Symptoms Previously?: Yes Recently seen or treated by another doctor?: No Review of Systems - Adult - REVIEW OF SYSTEMS - ADULT Constitutional: reports: see HPI Eyes: reports: no symptoms reported Ears, Nose, Mouth & Throat: reports: no symptoms reported Cardiovascular: reports: see HPI, edema Respiratory: reports: see HPI, shortness of breath Gastrointestinal: reports: see HPI, abdominal pain Genitourinary: reports: no symptoms reported Musculoskeletal: reports: no symptoms reported Integumentary: reports: see HPI Neurological: reports: no symptoms reported Psychiatric: reports: no symptoms reported Endocrine: reports: see HPI Hematologic/Lymphatic: reports: no symptoms reported Allergic/Immunologic: reports: no symptoms reported All Other Systems: Reviewed and Negative Past History - Adult - PAST MEDICAL HISTORY-ADULT Review of Records: reports: Old Records Reviewed, Nursing Assessment Review, Medications Reviewed, Social history reviewed & non-contributory. Major Childhood Illnesses: reports: denies history Cardiovascular: reports: HTN, hyperlipidemia Respiratory: reports: asthma, COPD Gastrointestinal: reports: colitis, hepatitis, liver disease (cirrhosis), ulcer Obstetrical/Gynecological: reports: denies history Genitourinary: reports: denies history, kidney disease Musculoskeletal: reports: arthritis, chronic pain, fibromyalgia, other Neurological: reports: denies history Psychiatric: reports: denies history Endocrine/Immune: reports: Diabetes, other (hep c) Other Conditions: reports: denies history - PRIOR SURGERIES/PROCEDURES Surgical/Procedure History: reports: cholecystectomy, orthopedic (extremity), back/neck - IMMUNIZATION STATUS Childhood Immunizations: See Nurse Assessment Flu Vaccine: See Nurse Assessment - FAMILY HISTORY Family History: reviewed, not pertinent - SOCIAL HISTORY Smoking: denies, non-smoker Substance Use: none presently/history of abuse, denies Alcohol Use Frequency: sober (former use) Physical Exam-General - PHYSICAL EXAM-ADULT Initial Vital Signs Reviewed: Yes - CONSTITUTIONAL General Appearance: alert, mild distress (uncomfortable appearing), obese - EYES Eyes: PERRL/EOMI, scleral icterus - HEAD, EARS, NOSE, MOUTH & THROAT HENMT: normocephalic/atraumatic, moist mucous membranes - NECK Neck: non-tender, full range of motion, supple, normal inspection - RESPIRATORY Respiratory: chest non-tender, lungs clear, normal breath sounds, no respiratory distress, no accessory muscle use, increased rate - CARDIOVASCULAR Cardiovascular: normal peripheral pulses, regular rate, rhythm, systolic murmur (All four quadrants), other (Anasarca) - GASTROINTESTINAL (ABDOMEN) Abdominal Exam: normal bowel sounds, non tender, soft, distended - MUSCULOSKELETAL Extremity: swelling, tenderness - SKIN Integumentary: warm/dry, jaundice, tenderness, other - NEUROLOGIC Neurologic: grossly normal, no motor/sensory deficits - PSYCHIATRIC Psych/Mental Status: normal mood/affect, normal thought content, normal thought process, oriented x 3 Progress - PLAN OF CARE/RESULTS Progress/Plan/Lab Results: Vital Signs - 8 hr 04/02/19 18:23 04/02/19 19:28 Temperature 98.1 F Pulse Rate 102 H 99 H Respiratory Rate 22 17 Blood Pressure 133/79 148/68 O2 Sat by Pulse Oximetry 96 99 Laboratory Results - last 24 hr 04/02/19 04/02/19 04/02/19 18:45 18:51 19:06 WBC 4.07 L RBC 3.02 L Hgb 8.4 L Hct 27.9 L MCV 92.4 MCH 27.8 MCHC 30.1 L RDW Std Deviation 21.7 H Plt Count 60 L MPV 9.5 Immature Gran % (Auto) 0.2 Neut % (Auto) 63.2 Lymph % (Auto) 19.7 L [place] % (Auto) 15.0 H Eos % (Auto) 1.2 Baso % (Auto) 0.7 Immature Gran # (Auto) 0.01 Neut # (Auto) 2.57 Lymph # (Auto) 0.80 L [place] # (Auto) 0.61 H Eos # (Auto) 0.05 Baso # (Auto) 0.03 Specimen Type ARTERIAL Sample Site L RADIAL pH 7.49 H pCO2 30 L pO2 75 HCO3 24.8 Base Excess -0.1 Oxyhemoglobin 94.4 L ABG O2 Sat (Calculated) 11.9 L ABG O2 Saturation 99.5 ABG Carboxyhemoglobin 3.70 H ABG Methemoglobin 1.4 Armani Test YES A-a O2 Difference 37.0 Total Hemoglobin 8.9 L Lactate 2.10 Blood Gas Modality ROOM AIR FiO2 % 21.0 Plasma Lactate Urine Source CLEAN CATCH Urine Color YELLOW Urine Clarity CLEAR Urine pH 6.5 Ur Specific [place] 1.010 Urine Protein TRACE A Urine Ketones NEGATIVE Urine Blood NEGATIVE Urine Nitrite NEGATIVE Urine Bilirubin 2+ A Urine Urobilinogen 4 Urine Microscopic RBC <10 Urine WBC NEGATIVE Urine Microscopic WBC <10 Ur Epithelial Cells <10 Urine Bacteria 1+ Urine Glucose NEGATIVE 04/02/19 19:06 WBC RBC Hgb Hct MCV MCH MCHC RDW Std Deviation Plt Count MPV Immature Gran % (Auto) Neut % (Auto) Lymph % (Auto) [place] % (Auto) Eos % (Auto) Baso % (Auto) Immature Gran # (Auto) Neut # (Auto) Lymph # (Auto) [place] # (Auto) Eos # (Auto) Baso # (Auto) Specimen Type Sample Site pH pCO2 pO2 HCO3 Base Excess Oxyhemoglobin ABG O2 Sat (Calculated) ABG O2 Saturation ABG Carboxyhemoglobin ABG Methemoglobin Armani Test A-a O2 Difference Total Hemoglobin Lactate Blood Gas Modality FiO2 % Plasma Lactate 2.3 H Urine Source Urine Color Urine Clarity Urine pH Ur Specific [place] Urine Protein Urine Ketones Urine Blood Urine Nitrite Urine Bilirubin Urine Urobilinogen Urine Microscopic RBC Urine WBC Urine Microscopic WBC Ur Epithelial Cells Urine Bacteria Urine Glucose Orders Category Date Time Status Cardiac Monitoring DIRECTED Care 04/02/19 18:29 Active IV Insertion ORDERED Care 04/02/19 18:29 Completed Notify MD of + Sepsis Screen NOW Care 04/02/19 18:29 Completed Notify Physician As Ordered Care 04/02/19 18:29 Completed CHEST-1 VIEW [RAD] Stat Exams 04/02/19 18:29 Completed ABG [RESP] Routine Lab 04/02/19 18:51 Completed BLOOD CULTURE [BLDCUL] Stat Lab 04/02/19 18:44 Ordered CBC WITH DIFF [HEME] Stat Lab 04/02/19 19:06 Completed CK PROFILE [SP CHEM] Stat Lab 04/02/19 19:06 Received COMPREHENSIVE METABOLIC PANEL [CHEM] Stat Lab 04/02/19 19:06 Received LACTATE, PLASMA [CHEM] Lab 04/02/19 21:30 Uncollected LACTATE, PLASMA [CHEM] Lab 04/03/19 00:30 Uncollected LACTATE, PLASMA [CHEM] Stat Lab 04/02/19 19:06 Completed MAGNESIUM [CHEM] Stat Lab 04/02/19 19:06 Received PROTIME WITH INR [COAG] Stat Lab 04/02/19 19:06 Received PTT [COAG] Stat Lab 04/02/19 19:06 Received TROPONIN T Stat Lab 04/02/19 19:[address] W/POSS RFLX CULT [URINALYSIS] Stat Lab 04/02/19 18:45 Completed Furosemide [Lasix] Med 04/02/19 19:41 Discontinued 60 mg IV NOW ONE Oxygen Device Stat Oth 04/02/19 18:29 Active Patient with LA to 2.3 and tbili to 12 which is concerning. This appears new. His magnesium is low as well. His does appear to have anasarca but on exam while his abdomen is distended does not appear to have a large amount of ascites. He was given Lasix 60mg IV and started on rocephin. I did not try a diagnostic tap because I do not feel there is a large pocket for me to drain. Blood pressures are normal and his INR is WNL. I spoke to Dr Lambert carbon brush maker for hospitalist who recommend US in the AM and continue him on Lasix 40mg IV BID. Patient stable for floor. Result Diagrams: 04/03/19 05:20 04/03/19 05:20 - XRAY 1 XRAY Study: Chest Impression: See EMR Report (EXAM: CHEST-1 VIEW HISTORY: SOB TECHNIQUE: Single view COMPARISON: 01/23/2019 FINDINGS: Poor inspiratory effort. The heart is mildly prominent. The vessels are not distended. There are no infiltrates. No effusion identified. IMPRESSION: Mild cardiomegaly Electronically signed by Luis Eduardo Roberson 04/02/2019 7:01 PM 04/02/191900 Interpreting Physician: Luis Eduardo Roberson MD Dictated Date/Time: 04/02/191899 cc: Nakia Weinberg MD; Ritesh Young MD) Departure - Departure Date of Disposition Decision: 04/02/19 Time of Disposition Decision: 22:12 DIAGNOSIS: Liver cirrhosis, Anasarca, Chronic anemia, Total bilirubin, elevated, Jaundice, Hypomagnesemia Disposition: ADMITTED INPATIENT 09 Certified Medical Emergency: Emergent Condition: Fair - Critical Care Note This patient required my direct & personal management of CC.: No Attestation - Physician/ SABI Attestation Patient care was provided by Advanced Practice Provider:: No The physician spent face to face time with patient:: Yes Advanced Practice Provider documentation review:: Supervising physician onsite and consulted in the evaluation and care of this patient. The physician did have a face to face encounter with the patient. This chart was documented by the indicated scribe, (Clemente Patel, Cecilio) and accurately reflects the services I performed and decisions made by me, Shelli Valverde MD, as attested by the provider's signature.
[2019-04-02] MEDS ORDERED: ALDACTONE PO SCH (22:15)
[2019-04-02] MEDS: MORPHINE IV PRN (22:25)
[2019-04-03] MEDS: MORPHINE IV PRN ×4 (03:30→20:22)
[2019-04-03] MEDS: ZOFRAN IV PRN ×4 (03:30→20:21)
[2019-04-03 05:46] LABS: AGAP 8; ALBUMIN 2.3 g/dL (3.5-5.0); ALKALINE PHOSPHATASE 290 U/L (32-122); BUN 8 mg/dL (8-22); CHLORIDE 98 mmol/L (98-107); COSMO 259; CREATININE 0.6 mg/dL (0.7-1.2); ESTIMATED GFR > 60; GLUCOSE 130 mg/dL (70-104); GOT 172 U/L (10-34); GPT 38 U/L (10-44); POTASSIUM 3.5 mmol/L (3.5-5.1); SODIUM 129 mmol/L (136-145); TCO2 23 mmol/L (25-35); TOTAL PROTEIN 6.1 g/dL (6.3-8.3)
[2019-04-03 05:47] LABS: BASO# 0.03 X1000 (0.0-0.2); BASO% 0.9 % (0.0-0.8); EOS# 0.05 X1000 (0.0-0.7); EOS% 1.5 % (0.0-10.0); HEMATOCRIT 25.8 % (42.0-52.0); HEMOGLOBIN 7.6 g/dL (14.0-18.0); IMM GRAN# 0.03 X1000 (0.0-0.04); IMM GRAN% 0.9 % (0.0-0.5); LYMPH# 0.88 X1000 (1.2-3.4); LYMPH% 25.6 % (20.5-51.1); MCHC 29.5 g/dL (33-37); MCV 95.2 FL (81-99); MONO# 0.56 X1000 (0.11-0.59); MONO% 16.3 % (1.7-9.3); MPV 10.2 FL (7.4-10.4); NEUT# 1.89 X1000 (1.4-6.5); NEUT% 54.8 % (42.2-75.2); PLT 61 X1000 (130-400); RBC 2.71 XMIL (4.7-6.1); RDW 21.5 % (11.5-14.5); WBC 3.44 X1000 (4.8-10.8)
[2019-04-03 05:53] LABS: INR 1.57; PROTIME 19.7 Seconds (11.0-16.0)
[2019-04-03 05:54] LABS: PTT 35.2 Seconds (22.3-41.8)
[2019-04-03] MEDS ORDERED: LASIX IV SCH ×2 (08:00→11:00)
--- NOTE | 2019-04-03 10:55 | Diag Imaging Result Doc PS360 ---
EXAM: US ABDOMEN-COMPLETE HISTORY: ascites TECHNIQUE: Abdominal ultrasound FINDINGS: the pancreas is obscured. There is a small amount of fluid about the liver. The liver is enlarged measuring over 22 cm in length and there is fatty infiltration of the liver. Normal right kidney. No hydronephrosis. The spleen is markedly enlarged measuring over 26 cm. Normal left kidney. No hydronephrosis. The gallbladder has been removed. The aorta and inferior vena cava are obscured. IMPRESSION: 1.Small amount of ascites 2.Hepatomegaly with fatty infiltration 3.Splenomegaly 4.Cholecystectomy Electronically signed by Luis Eduardo Roberson 04/03/2019 10:53 AM
[2019-04-03] MEDS ORDERED: ALDACTONE PO SCH (11:00)
[2019-04-03] MEDS ORDERED: VITAMIN K SUBQ ONE (11:48)
[2019-04-03] MEDS ORDERED: MAGNESIUM SULFATE 2 GM/S.W.I. 2 GM/50 ML IVPB IV ONE (12:51)
--- NOTE | 2019-04-03 18:04 | HISTORY AND PHYSICAL ---
PRIMARY CARE PHYSICIAN: Dr. Young. CHIEF COMPLAINT: Of swelling in his abdomen and legs that had progressively worsened and with shortness of breath. States he has had a 25 pound weight gain over a week. HISTORY OF PRESENTING ILLNESS: This is a 44-year-old male who presents to [facility] ER with complaints of increased abdomen and lower extremity swelling and increased shortness of breath. States he has had a 25 pound weight gain in a week. He has a known history of cirrhosis, is jaundice to his entire body. Abdomen is grossly distended. We did do an abdomen ultrasound that only showed a small amount of ascites, hepatomegaly with fatty infiltration and the splenomegaly. His laboratory data showed a sodium of 129, magnesium was 1.4, his total bilirubin is 12 and when he was here in the hospital on 01/24/2019 his total bilirubin was 3.50 so that has significantly increased. His MELD score was 26. Plasma lactate on arrival was 2.3. Subsequent repeat per the protocol was 1.5 and 1.4 so he was admitted for further evaluation and treatment. PAST MEDICAL HISTORY: Of cirrhosis, acute renal failure, hypertension, COPD, asthma, gout, diabetes type 2, hyperlipidemia, ascites and jaundice. PAST SURGICAL HISTORY: Of a cholecystectomy, back surgery, vascular ablation, bilateral knee repair and anal fistular repair x2. FAMILY HISTORY: Hypertension and CA. SOCIAL HISTORY: He currently lives with his mother and grandmother. 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 Has a history of ETOH use and quit in January 2018. Denies any tobacco or illicit drug use. ALLERGIES: He has no known drug allergies. HOME MEDICATIONS: A current list will need to be obtained, reconciled, reviewed and restarted as appropriate, will place an order for nursing to update and confirm home medications. LABORATORY DATA: Showed a white blood cell count of 4.07, hemoglobin 8.4, hematocrit 27.9, platelets of 60,000. PT and INR of 18.3 and 1.44. ABG with a pH of 7.49, pCO2 of 30, PO2 75, bicarb 24.8, and this was on room air. Sodium of 129, potassium 3.7, chloride 97, CO2 22, BUN of 7, creatinine 0.6, glucose 151, magnesium 1.4, total bilirubin of 12, AST 212, ALT 45, alkaline phosphatase 314, plasma lactate on arrival of 2.3, repeats were 1.5 and 1.4 subsequently. Urinalysis was negative except for 1+ bacteria. Chest x-ray showed mild cardiomegaly. Abdomen ultrasound showed a small amount of ascites, hepatomegaly with fatty infiltration and splenomegaly and a cholecystectomy. REVIEW OF SYSTEMS: He denied any fever, chills, blurred vision, dizziness. He had shortness of breath, abdomen discomfort but denied any diarrhea but did state that he had constipation with his last bowel movement being 4 days ago but denied any burning or hurting with urination. PHYSICAL EXAMINATION: On arrival he had a temperature of 98.1 degrees, heart rate of 102, respirations 22, blood pressure 133/79, saturating 96% on room air. GENERAL: This is a 44-year-old male who is lying in the bed, answers questions appropriately. Is noted to be jaundiced to entire body. HEENT: Normocephalic, atraumatic. Normal ENT inspection. Oropharynx and nares are clear. Eyes with icterus sclerae. NECK: Normal inspection, normal range of motion. LUNGS: Clear to auscultation bilaterally with equal lung expansion and chest wall movement. HEART: With regular rate and rhythm. No murmurs, rubs, or gallops. ABDOMEN: Distended, mildly tender to palpation. Bowel sounds are present x4 quadrants. EXTREMITIES: He is noted to have bilateral Unna boots to lower extremities and has 2+ pitting edema bilateral pedal areas and some anasarca. NEUROLOGICAL: The cranial nerves 2-12 are grossly intact. ASSESSMENT: 1. Decompensated cirrhosis. 2. Hyponatremia. 3. Hypomagnesemia. 4. Diabetes type 2. 5. Hypertension. OUR PLAN: We initially admitted him to the medical unit but he will be now transferred to [facility] for GI consultation. He is going to need a CT of the abdomen and pelvis with p.o. and IV contrast which our scanner here at [place] is down at this time. He will be placed on Lasix 40 mg IV b.i.d. Will replace his magnesium with magnesium sulfate 2 g IV x1 dose, verify home medications, do pattern blood sugars with sliding scale insulin, recheck a CMP and CBC in the a.m. and magnesium level and further orders after seen by attending and air quality consultant. Dictated by CINTHIA Mallory for Ajith Lambert MD cc: MD Ajith Jones MD
[2019-04-03] MEDS: LACTULOSE PO SCH (20:20)
[2019-04-03] MEDS: SOLU-MEDROL IV SCH (20:21)
[2019-04-03] MEDS: PROTONIX IV SCH (20:22)
[2019-04-03] MEDS: SODIUM CHLORIDE 0.9% INJ SCH (20:22)
--- NOTE | 2019-04-03 20:28 | PROGRESS NOTE ---
DATE: 04/03/2019 SUBJECTIVE/PLAN: The patient is doing okay. No major complaints. He came in for worsening swelling of the legs, abdomen, lower extremities, scrotal edema, and patient has gained 25 pounds this week. We will continue diuretics and follow. The patient does have protuberant abdomen, but there is no ascites on ultrasound. So, I am not quite sure what is causing his decompensation in his liver function. In any case, I think he probably will need evaluation by GI because he has decompensated cirrhosis with hyperbilirubinemia. We have ordered a CT. I have ordered Protonix. There is no clear evidence of bleeding. We will continue with diuretics and follow. We will continue to monitor very closely. Dr. Young is his main primary care physician and he has seen Dr. Reyes in the past. He does have a systolic murmur as well, best heard over the second intercostal space on the right. We will pursue echo. DISPOSITION: Pending clinical status. cc: Ajith Lambert MD
[2019-04-03] MEDS ORDERED: LACTULOSE PO SCH (21:00)
[2019-04-03] MEDS: LASIX IV SCH (23:44)
[2019-04-04] MEDS: ZOFRAN IV PRN ×5 (00:57→22:27)
[2019-04-04] MEDS: MORPHINE IV PRN ×6 (00:57→22:27)
--- NOTE | 2019-04-04 01:11 | GASTROENTEROLOGY CONSULTATION ---
DATE: 04/03/2019 REQUESTING PHYSICIAN: Dr. Young. PRIMARY CARE PHYSICIAN: Dr. Young. REASON FOR CONSULTATION: Cirrhosis, abdominal distention. The patient follow with Hepatology with [facility]. HISTORY OF PRESENT ILLNESS: Mr. Robles is a 44-year-old male, who was admitted on 04/02/2019 for worsening swelling of his abdomen and lower extremities. According to the patient, he is not moving his bowels well. He also complains of shortness of breath. He reports a history of kidney failure. He has gained about 25 pounds this week. On admission, he had labs done, which showed evidence of anemia, thrombocytopenia and worsening jaundice. He has a history of chronic liver cirrhosis which is attributed to history of alcoholism. He used to drink more than 6 beers a day for more than 25 years, he quit in December 2017. He follows with the Hepatology Department at [facility]. He had to reschedule his last appointment with [facility] 2 months ago because, at that time, he was being treated at [facility] for sepsis. During this admission, he had a ultrasound of the abdomen done which showed evidence of small amount of ascites about the liver. The liver is enlarged measuring 22 cm in length. There is fatty infiltration of the liver. The spleen is markedly enlarged, measuring over 26 cm. No hydronephrosis. The gallbladder is removed. He is awaiting a CT scan done today. Prior CT scan done in December 2018 showed cirrhosis with marked splenomegaly that is stable. He had chronic liver disease workup done in September 2018 which was negative for acute hepatitis panel, negative mono screen and ascitic fluid studies were negative for AFB. His VELIA was negative and antimitochondrial antibody was also negative, anti-smooth muscle antibody was negative. His iron saturation on last admission was 86% and ferritin was 91. We need to check him for hemochromatosis. His alpha-1 antitrypsin level was 135 and ceruloplasmin level was 24.8. The patient denies any nausea, vomiting, vomiting blood, passing blood in the stools. PAST MEDICAL HISTORY: Hypertension, hyperlipidemia, asthma, COPD, cirrhosis likely secondary to chronic alcoholism, quit in December 2017, history of gastric ulcers, colon polyps, question of varices, chronic pain, fibromyalgia, diabetes, gout, obesity, an ulcer on the left foot and ankle. PAST SURGICAL HISTORY: Cholecystectomy, neck and back surgery. FAMILY HISTORY: Denies any history of liver disease in the family. SOCIAL HISTORY: He currently lives with his grandmother, he helps take care of her. His mother also moved in with them recently. He is , he has 1 child. He does not smoke. He quit drinking in December 2017. He denies any history of illicit drug abuse. 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 ALLERGIES: No known drug allergies. MEDICATIONS IN THE HOSPITAL: Lasix 40 mg IV q.12 hours, lactulose 30 mL p.o. b.i.d., and methylprednisolone 40 mg IV once daily, morphine 4 mg IV every 4 hours as needed, and Zofran 4 mg IV every 4 hours, Protonix 40 g IV q.24 hours, spironolactone 25 mg daily, and he was given 1 dose of Lasix 60 mg IV once. He was given, also, 1 dose of vitamin K 10 mg. He was given 1 dose of ceftriaxone. He has ordered a CT scan abdomen and pelvis, which is currently pending. He is on a heart healthy diet. REVIEW OF SYSTEMS: Denies any current fevers, rigors, chills, chest pain, shortness of breath, dyspnea at rest. Denies any vomiting or passing blood in the stools. Complains of feeling weak; swollen abdomen and legs. He also has a chronic ulcer on the left leg. Denies any neurologic complaints. PHYSICAL EXAM: Vital signs: Temperature 98.2 degrees, pulse rate of 87, respiratory 20, blood pressure 130/58, saturating 98% room air. Body weight of 356 pounds, 3.2 ounces. BMI 43.4 kg/m2. General: Obese, lying in bed, in no acute distress. HEENT: Positive pallor. Positive icterus. Pupils equal, react to light. Neck: Supple. Abdomen: Obese, mild distention noted. Mild discomfort noted in the buttock region. No rebound. No guarding. Extremities: Bilateral lower extremity edema noted. He reports an ulcer in the left leg and ankle, it is covered with a pressure bandage. Neurologic: He is alert, awake, oriented. LABS: His hemoglobin and hematocrit is 7.7 and 25.8, white count 3.4, platelet count of 61,000. INR 1.57, PT of 19.7, PTT of 35.2. ABG showing pH of 7.49, pCO2 of 30, PO2 of 75, this is on room air. Lactate 2.1. Sodium 139, potassium 3.5, chloride 98, bicarb 23, anion gap of 8, BUN of 8, creatinine 0.2. Glucose of 130, calcium is 8, total bilirubin is 12, AST 142, ALT 30, alkaline phosphatase 290, total protein 6.2, albumin of 2.3. Urinalysis showing trace protein, 2+ bilirubin. Blood cultures are currently pending from yesterday, they were drawn x2. An ultrasound as described in HPI. IMPRESSION/PLAN: 1. Liver cirrhosis. 2. History of alcoholism, quit in December 2017. 3. Anasarca. 4. Bilateral lower extremity edema. 5. Left leg and ankle ulcer. 6. Chronic anemia. 7. Thrombocytopenia. 8. Jaundice. 9. Elevated iron saturation. 10. Diabetes. 11. Obesity. 12. Splenomegaly. 13. Asthma. 14. Gout. 15. Chronic pain. 16. Fibromyalgia. RECOMMENDATIONS: 1. We will continue on Lasix and Aldactone. We will need to keep a close eye on his kidney function. We will follow the results of CT scan abdomen and pelvis. We will continue on lactulose 30 mL p.o. b.i.d., he has not moved his bowels in many days. We can gradually go up on lactulose to 4 times daily and hold for more than 3 bowel movements in 24 hours. He is on pain control with IV morphine. He is on IV Zofran as needed. He is on Protonix once daily for GI prophylaxis. He is anemic, we will watch for now and transfuse as needed if his hemoglobin goes below 7 g/dL. We will keep at a range of 7 to 8 g/dL for his hemoglobin. We will give him vitamin K for 3 days. 2. We may have to do ultrasound-guided paracentesis to evaluate for SBP. We will check hemochromatosis genotype. 3. Further recommendations are pending hospital course. We will follow along. The above plan was discussed with the patient and all questions answered. Please call if any questions. cc: MD VIRGIL Villalta
[2019-04-04 06:46] LABS: HEMATOCRIT 30.1 % (42.0-52.0); IMM GRAN# 0.03 X1000 (0.0-0.04); IMM GRAN% 0.9 % (0.0-0.5); LYMPH# 0.28 X1000 (1.2-3.4); LYMPH% 8.4 % (20.5-51.1); MCH 28.5 PG (27-31); MCHC 29.9 g/dL (33-37); MCV 95.3 FL (81-99); MONO# 0.17 X1000 (0.11-0.59); MONO% 5.1 % (1.7-9.3); MPV 10.9 FL (7.4-10.4); NEUT# 2.84 X1000 (1.4-6.5); NEUT% 85.6 % (42.2-75.2); PLT 71 X1000 (130-400); RBC 3.16 XMIL (4.7-6.1); WBC 3.32 X1000 (4.8-10.8)
[2019-04-04 06:51] LABS: INR 1.63; PROTIME 19.6 Seconds (11.0-16.0)
[2019-04-04 07:12] LABS: AGAP 11; ALB/GLOB RATIO 0.7; ALBUMIN 2.6 g/dL (3.5-5.0); ALKALINE PHOSPHATASE 289 U/L (32-122); BUN 9 mg/dL (8-22); CHLORIDE 96 mmol/L (98-107); COSMO 265; CREATININE 0.9 mg/dL (0.7-1.2); ESTIMATED GFR > 60; GLUCOSE 201 mg/dL (70-104); GOT 145 U/L (10-34); GPT 38 U/L (10-44); LDH 176 U/L (135-225); MAGNESIUM 1.6 mg/dL (1.5-2.7); POTASSIUM 4.3 mmol/L (3.5-5.1); SODIUM 130 mmol/L (136-145); TCO2 23 mmol/L (25-35); TOTAL BILIRUBIN 14.67 mg/dL (0.20-1.00); TOTAL PROTEIN 6.3 g/dL (6.3-8.3)
[2019-04-04 07:44] LABS: BANDS 2 % (0-1); LYMPHS 4 % (21-51); SEGS 94 % (42-75)
--- NOTE | 2019-04-04 07:51 | Diag Imaging Result Doc PS360 ---
EXAM: CT ABD/PELVIS W/PO AND IV CON HISTORY: cirrhosis,R/O obstruction TECHNIQUE: CT abdomen and pelvis without contrast COMPARISON: 01/23/2019 FINDINGS: There is a [id number] amount of abdominal and pelvic ascites. The spleen is markedly enlarged measuring almost 23 cm in AP diameter and over 23 cm in length. The liver is also prominent and there is fatty infiltration. The gallbladder has been removed. No inflammation about the pancreas. Normal adrenal glands. No renal stones or hydronephrosis. No aortic aneurysm. There is oral contrast within the small bowel. No bowel obstruction. Urinary bladder is moderately distended and appears normal. Normal prostate. IMPRESSION: 1.Interval development of a small to moderate amount of abdominal and pelvic ascites 2.Cirrhosis with marked splenomegaly 3.Cholecystectomy 4.Resolution of the tiny right pleural effusion This exam was performed using automated exposure control, adjustment of mA or kV according to patient size, and/or use of iterative reconstruction technique. Electronically signed by Luis Eduardo Roberson 04/04/2019 7:48 AM
--- NOTE | 2019-04-04 08:01 | PROGRESS NOTE ---
DATE: 04/04/2019 SUBJECTIVE: This morning, Mr. Robles refers to be doing fairly okay. Denies any new complaints except his abdomen is quite distended and slightly painful. OBJECTIVE: Vital signs: Blood pressure is 128/54, pulse of 78, respirations 18, temperature 98.1 degrees. General: Mr. Robles is a 48-year-old, obese, gentleman. BMI is 43.4. He is in bed, no distress. Mucosa is pink and moist. Anicteric. Acyanotic. Neck: Supple. Chest: Good air entry bilaterally. There were no crepitations, no rhonchi. Cardiovascular: Regular rate and rhythm. Abdomen: Remarkably distended, minimally tender. There is hepatosplenomegaly palpable. There is also collateral circulation on the anterior abdominal wall. There are some spider angiomas on the chest wall. Extremities: No pedal edema. 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 LABORATORY DATA: WBC is 3.32, hemoglobin is 9.0, platelet count of 71,000. INR of 1.63. Chemistry shows sodium is 130, potassium is 4.3, chloride is 93. The patient's bilirubin is 14.67, direct is more than 100. So far blood cultures have been 48 hours negative. CURRENT MEDICATIONS: Include 1. Lasix 40 mg IV q.12. 2. Lactulose 30 mL 3 times per day. 3. Solu-Medrol 40 mg IV daily. 4. Morphine p.r.n. 5. Pantoprazole 40 mg IV. 6. Vitamin K 10 mg IV daily for 3 days. 7. Spironolactone 25 mg p.o. daily. ASSESSMENT: 1. Alcohol-induced cirrhosis of the liver complicated with portal hypertension, splenomegaly, mild ascites and pancytopenia. Patient's MELD score is 21 with low sodium. Child Oliveira score of 9. 2. Acute alcohol-induced hepatitis with hepatitis discriminant severity score of more than 32. The patient has been started on steroids. 3. Pancytopenia presumably due to underlying hypersplenism. The patient is, however, supposed to follow up with Hematology/Oncology to rule out any other potential causes. 4. Abdominal pain, presumably due to hepatosplenomegaly. Patient is pending a CT scan to also rule out any other potential etiologies. cc: Jose Cruz Oliveira MD
[2019-04-04] MEDS: LACTULOSE PO SCH ×3 (09:19→22:29)
[2019-04-04] MEDS: VITAMIN K 10 MG in NS 50 ML IV SCH (09:19)
[2019-04-04] MEDS: ALDACTONE PO SCH (09:19)
[2019-04-04] MEDS: SOLU-MEDROL IV SCH (09:20)
[2019-04-04 10:57] LABS: CALCIUM 9.1 mg/dL (8.8-10.2)
[2019-04-04] MEDS: ROCEPHIN 1 GM in NS 50 ML IV SCH (10:58)
[2019-04-04] MEDS: LASIX IV SCH ×2 (11:31→22:29)
--- NOTE | 2019-04-04 12:40 | GASTROENTEROLOGY PROGRESS NOTE ---
DATE: 04/04/2019 ATTENDING PHYSICIAN: Dr. Oliveira. PRIMARY PHYSICIAN: Dr. Young. SUBJECTIVE: The patient is resting in bed. He had a bowel movement today. He is currently getting echocardiogram. He had a CT scan done this morning. The results revealed: 1. Interval development of uwpyo-wp-[id number] amount of abdominal and pelvic ascites. 2. Cirrhosis with marked splenomegaly. 3. Cholecystectomy. 4. Resolution of the tiny right pleural effusion. 5. No bowel obstruction was noted. 6. There is fatty infiltration of the liver. 7. The gallbladder has been removed. 8. The spleen measures 23 cm in diameter, 23 cm length. The patient denies any fevers, rigors, chills. Denies any nausea, vomiting, vomiting blood, passing blood in the stools. OBJECTIVE: Vital Signs: Temperature 98.3 degrees, pulse of 82, respiratory rate 18, blood pressure 160/70, saturating 98% room air. Body weight of 356 pounds 3.2 ounces. BMI 43.4 kg. General Appearance: Morbidly obese. Lying in bed in no acute distress. HEENT: Pale conjunctivae. Icteric sclerae. Pupils equal, reactive to light and accommodation. Neck: Supple. Abdomen: Obese. Positive ascites. Positive anasarca. No rebound or guarding. Discomfort in the pelvic region. Extremities: No cyanosis, clubbing. Bilateral mild lower extremity edema noted. Evidence of pressure band noted on the left foot and ankle. Neurologic: Alert, awake, oriented x3. IMAGING AND LABORATORY DATA: His hemoglobin and hematocrit are 9 and 30.1, white count of 3.32, platelet count of 71,000, MCV of 95.3. INR 1.63, PT of 19.6. Sodium 130, potassium 4.3, chloride 96, bicarb 23, anion gap 11, BUN of 9, creatinine 0.9, glucose of 201, calcium is 9.1. Magnesium 1.6. Total bilirubin is 14.67, direct of more than 10, AST 145, ALT 38, alkaline phosphatase 249, total protein is 6.3, and albumin of 2.6. Blood culture is negative at 48 hours. Stool occult blood is pending. Abdominopelvic CT scan as described in the HPI. IMPRESSION AND PLAN: 1. Alcoholic cirrhosis complicated with portal hypertension, splenomegaly, ascites, and pancytopenia. MELD score is 21. 2. Splenomegaly. 3. Abdominal pain. Need to rule out spontaneous bacterial peritonitis. 4. Coagulopathy. He is receiving vitamin K for 3 days. 5. Gastrointestinal prophylaxis with proton pump inhibitors. 6. Anemia. Continue to watch for now, and transfuse 1 unit of packed cells if hemoglobin goes below 7 g/dL. 7. Constipation. Will start him on lactulose 30 mL 3 times daily. He had 1 bowel movement today. He is already ordered ultrasound-guided paracentesis. We need to do fluid studies to evaluate for spontaneous bacterial peritonitis. He will continue on intravenous morphine for pain control and intravenous Zofran per the primary team. He is already on Lasix and Aldactone. We need to watch his kidney function and electrolytes closely. 8. The patient is on heart healthy diet. 9. Continue to follow the liver enzymes and coagulation profile and labs daily. I am starting him on empiric ceftriaxone as the index suspicion for spontaneous bacterial peritonitis is high. The patient has a history of sepsis 2 months ago. The above plan was discussed with the patient, and all questions were answered. Please call us with any further questions. cc: MD Ritesh Villalta MD
[2019-04-04] MEDS: PROTONIX IV SCH (22:28)
[2019-04-05] MEDS: MORPHINE IV PRN ×6 (02:16→23:54)
[2019-04-05] MEDS: ZOFRAN IV PRN ×6 (02:17→23:54)
--- NOTE | 2019-04-05 06:14 | PROGRESS NOTE ---
DATE: 04/05/2019 ADDENDUM: I spoke with Dr. Reyes about Mr. Robles. From his evaluation, it seems that Mr. Robles had stopped drinking for over a year now, and that the elevation in his bilirubin is not likely to be alcohol induce. As a result, he recommend to discontinue the methylprednisone. He also suspects that Mr. Robles has SBP, and he recommended that we pursue an ultrasound-guided paracenteses. This has already been ordered, and will be following up accordingly. We will therefore discontinue the methylprednisone. cc: MD VIRGIL Sarabia
[2019-04-05 07:01] LABS: HEMATOCRIT 26.7 % (42.0-52.0); MCH 28.9 PG (27-31); MCV 96.4 FL (81-99); MPV 10.9 FL (7.4-10.4); RBC 2.77 XMIL (4.7-6.1); RDW 21.3 % (11.5-14.5); WBC 4.29 X1000 (4.8-10.8)
[2019-04-05 07:14] LABS: AGAP 7; ALB/GLOB RATIO 0.6; ALBUMIN 2.3 g/dL (3.5-5.0); ALKALINE PHOSPHATASE 232 U/L (32-122); BUN 12 mg/dL (8-22); CALCIUM 7.4 mg/dL (8.8-10.2); CHLORIDE 94 mmol/L (98-107); COSMO 259; CREATININE 0.9 mg/dL (0.7-1.2); ESTIMATED GFR > 60; GLUCOSE 143 mg/dL (70-104); GOT 100 U/L (10-34); GPT 31 U/L (10-44); POTASSIUM 3.9 mmol/L (3.5-5.1); SODIUM 128 mmol/L (136-145); TCO2 27 mmol/L (25-35); TOTAL BILIRUBIN 11.54 mg/dL (0.20-1.00)
--- NOTE | 2019-04-05 08:48 | Diag Imaging Result Doc PS360 ---
US GB < RUQ (LIMITED) - 04/05/2019 INDICATION: ascites TECHNIQUE: COMPARISON: CT from 04/04/2019 FINDINGS: There is trace ascites, certainly not enough to sample. There is severe splenomegaly. IMPRESSION: Trace ascites. No procedure performed. Electronically signed by Charles Blandon 04/05/2019 8:46 AM
--- NOTE | 2019-04-05 09:05 | ECHO REPORT ---
ORDER DATE: 04/04/2019 ECHOCARDIOGRAPHIC MEASUREMENTS: 1. Septal thickness 1.2. 2. Left ventricular internal diameter in diastole 5.7. 3. Aortic root 3.9. 4. Left atrium 3.7. SUMMARY: 1. Technically difficult study due to limited acoustic window quality. Intravenous echo contrast agent, OpSite, was utilized to enhance endocardial definition. 2. Aortic valve is trileaflet and opens normally on 2-dimensional images. The peak gradient across the aortic valve is 24 mmHg. Mitral and tricuspid valves are without evidence of structural abnormality with trace tricuspid regurgitation. Pulmonic valve is not well demonstrated. The aortic root is normal in size. 3. Normal left ventricular chamber size with mild concentric left ventricular hypertrophy is demonstrated. The estimated left ventricular ejection fraction appears to be at least 65%. No regional wall abnormalities evident. Left atrium, right atrium, right ventricle are normal in size with grossly preserved right ventricular systolic function. 4. No pericardial effusion. 5. Inferior vena cava not well demonstrated. CONCLUSIONS: 1. Technically difficult study. 2. No significant valvular abnormality demonstrated. 3. Mild concentric left ventricular hypertrophy with estimated left ventricular ejection fraction at least 65%. 4. Borderline aortic root enlargement. cc: MD Ajith Jimenez MD
[2019-04-05] MEDS: LACTULOSE PO SCH ×3 (10:38→19:07)
[2019-04-05] MEDS: VITAMIN K 10 MG in NS 50 ML IV SCH (10:38)
[2019-04-05] MEDS: ALDACTONE PO SCH (10:38)
[2019-04-05] MEDS: LASIX IV SCH ×2 (10:39→21:34)
[2019-04-05] MEDS: ROCEPHIN 1 GM in NS 50 ML IV SCH (10:39)
--- NOTE | 2019-04-05 12:14 | GASTROENTEROLOGY PROGRESS NOTE ---
DATE: 04/05/2019 SUBJECTIVE: Mr. Robles is a 44-year-old male who was resting in bed. He complained of being nauseated, but denied any vomiting. He did have 1 bowel movement today and he mentioned it was regular. OBJECTIVE: Vital Signs: Temperature 97.6, pulse 76, respirations 20, blood pressure 143/62, oxygen saturation 98% on room air. The patient's weight is 355 pounds. BMI is 43.4 kg/m2. General: Patient is alert, oriented x3, morbidly obese and in no acute distress. HEENT: Pale conjunctivae. Scleral icterus. PERRL. Neck: Supple. Lungs: Clear to auscultation in the anterior lebron. Cardiovascular: Regular rate and rhythm. Abdomen: Obese, distended, positive ascites. Positive anasarca. Hypoactive bowel sounds heard in all 4 quadrants. Extremities: No clubbing, no cyanosis. The patient has got Unna boots bilaterally. He has some ulcers on his left leg and he mentioned having some scratches on his right leg where his dog scratched him. Neurologic: Alert and oriented x3. LABORATORY DATA: WBCs 4.2, RBCs 2.77, hemoglobin 8.0, hematocrit 26.7, platelet count is 379,000. PT 19.6, INR 1.63. Sodium 128, potassium 3.9, chloride 94, carbon dioxide 27, anion gap 7, BUN 12, creatinine 0.9, glucose 143, calcium 7.4, total bilirubin 11.54, AST 100, ALT 31, alkaline phosphatase is 232. Occult blood test is positive, blood cultures showed no growth, urine analysis showed trace protein and 2+ bilirubin. Abdominal ultrasound showed trace ascites. Abdomen and pelvis CT showed interval development of small to moderate amount of abdominal and pelvic ascites, cirrhosis with marked splenomegaly, cholecystectomy, and resolution of the tiny right pleural effusions. IMPRESSION AND PLAN: 1. Alcoholic cirrhosis MELD score 21 2. Splenomegaly. 3. Abdominal pain R/O spontaneous bacterial peritonitis 4. Coagulopathy. 5. Anemia. 6. Constipation. 7. Ascites 8. Jaundice 9. Obesity 10. History of sepsis 11. Elevated iron saturation on chronic liver disease work up. PLAN: The patient is currently on GI prophylaxis Protonix 40 mg IV daily. He is also receiving lactulose 30 mg PO TID for his constipation. The patient is also on vitamin K 10 mg daily for coagulopathy. He is receiving antibiotic Rocephin for his abdominal pain and suspicion of bacterial peritonitis with the history of sepsis past two months.. The patient is on Lasix and Aldactone, we will monitor his kidney functions and electrolytes closely.. For his nausea, he is receiving antiemetic Zofran. The patient's liver function test today was total bilirubin 11.54, AST 100, ALT 31, alkaline phosphatase 232. It has been trending downward. His INR is 1.63. Patient's H & H is 8.0 and 26.7, if his hemoglobin drops below 7 we will transfuse PRBC's as needed. He was supposed to have paracentesis done, but not done due to insufficient fluid . We will continue to monitor his CBC, BMP, INR and follow the plan of care per PCP. We have ordered hemochromotosis gene analysis for further plan of care. This plan was discussed with Dr. Reyes. Please call us for any further questions or concerns. Dictated by CINTHIA Zuñiga for Deyvi Reyes MD cc: Deyvi Reyes MD I have seen and examined the patient myself. I agree with the above plan of care. I have discussed the above with the patient and all questions were answered. Please call us with any further questions. VIRGIL
--- NOTE | 2019-04-05 14:19 | PROGRESS NOTE ---
DATE: 04/05/2019 SUBJECTIVE: As per the patient, he is feeling better. He is still complaining of abdominal swelling, and still is slightly painful. This patient has been started on ceftriaxone yesterday for the possibility of SBP. We tried to do an ultrasound-guided paracentesis today to get some fluids, but he did not have too much fluid to be collected, so the procedure was not performed. I will continue with the same management for now. Gastroenterology Department following this patient, and hopefully we will discharge this patient soon. OBJECTIVE: Vital Signs: Temperature 98.1, pulse 83, respiratory rate 17, blood pressure 146/68, oxygen saturation 100% on room air. HEENT: Head normocephalic. No trauma. Icteric sclerae. Neck: Supple. No JVD. Central trachea. Chest: Clear to auscultation. Some crepitus at the bases. Abdomen: Soft, distended, minimally tender, mostly at the level of the upper part. There is hepatosplenomegaly, collateral circulation on the anterior abdominal wall, and some spider angiomata as well. Extremities: Probably trace pedal edema, but it is covered with a dressing. Apparently, he has a nonhealing ulcer on his left leg, but it is covered also. Neurological: The patient is alert and oriented x3. No focal deficits. LABORATORY DATA: WBC 4.2, hemoglobin 8, hematocrit 26.7, platelets 79,000. Sodium 128, potassium 3.9, chloride 94, bicarbonate 27, BUN 12, creatinine 0.9, glucose 143, calcium 7.4. Bilirubin 11.5, AST 100, ALT 31, alkaline phosphatase 232, albumin 2.3. ASSESSMENT AND PLAN: 1. Alcohol-induced liver cirrhosis, complicated with portal hypertension, splenomegaly, mild ascites, pancytopenia. I will continue with the same management. There is a possibility of spontaneous bacterial peritonitis. This patient has been placed on antibiotics. No paracentesis has been done. 2. 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 Aware. As per the patient, he will follow up with Dr. Mohan to rule out any other possibility of pancytopenia, but I do believe it is just related to his current condition. 3. Abdominal pain, probably due to hepatosplenomegaly. CT scan of the abdomen showed a small amount of abdomen and pelvic ascites, liver cirrhosis with marked splenomegaly, and resolution of the right pleural effusion. 4. History of alcohol abuse. Apparently, he stopped drinking more than 1 year ago. We will just monitor. 5. Coagulopathy due to liver cirrhosis. cc: Vic Tate MD
[2019-04-05] MEDS: SODIUM CHLORIDE 0.9% INJ SCH (21:34)
[2019-04-05] MEDS: PROTONIX IV SCH (21:34)
[2019-04-06] MEDS: LASIX IV SCH ×3 (04:18→22:14)
[2019-04-06] MEDS: ZOFRAN IV PRN ×5 (04:31→22:26)
[2019-04-06] MEDS: MORPHINE IV PRN ×5 (04:31→22:26)
[2019-04-06 07:03] LABS: BASO# 0.02 X1000 (0.0-0.2); BASO% 0.6 % (0.0-0.8); EOS# 0.08 X1000 (0.0-0.7); EOS% 2.3 % (0.0-10.0); HEMATOCRIT 27.6 % (42.0-52.0); HEMOGLOBIN 8.1 g/dL (14.0-18.0); IMM GRAN# 0.03 X1000 (0.0-0.04); IMM GRAN% 0.9 % (0.0-0.5); LYMPH# 0.98 X1000 (1.2-3.4); LYMPH% 27.9 % (20.5-51.1); MCHC 29.3 g/dL (33-37); MCV 98.9 FL (81-99); MONO# 0.56 X1000 (0.11-0.59); MPV 10.8 FL (7.4-10.4); NEUT# 1.84 X1000 (1.4-6.5); NEUT% 52.3 % (42.2-75.2); PLT 80 X1000 (130-400); RBC 2.79 XMIL (4.7-6.1); RDW 22.3 % (11.5-14.5); WBC 3.51 X1000 (4.8-10.8)
[2019-04-06 07:17] LABS: AGAP 9; ALB/GLOB RATIO 0.7; ALBUMIN 2.4 g/dL (3.5-5.0); ALKALINE PHOSPHATASE 216 U/L (32-122); BUN 13 mg/dL (8-22); CALCIUM 8.3 mg/dL (8.8-10.2); CHLORIDE 99 mmol/L (98-107); COSMO 275; ESTIMATED GFR > 60; GLUCOSE 125 mg/dL (70-104); GOT 101 U/L (10-34); GPT 33 U/L (10-44); POTASSIUM 3.7 mmol/L (3.5-5.1); SODIUM 137 mmol/L (136-145); TCO2 29 mmol/L (25-35); TOTAL BILIRUBIN 10.58 mg/dL (0.20-1.00); TOTAL PROTEIN 5.8 g/dL (6.3-8.3)
[2019-04-06] MEDS: ROCEPHIN 1 GM in NS 50 ML IV SCH (09:01)
[2019-04-06] MEDS: ALDACTONE PO SCH (09:02)
[2019-04-06] MEDS: LACTULOSE PO SCH ×3 (09:02→22:15)
--- NOTE | 2019-04-06 09:50 | PROGRESS NOTE ---
DATE: 04/06/2019 SUBJECTIVE: This patient is feeling better. He is still complaining of abdominal swelling and some discomfort. He has been having good urine output, and actually he has a negative balance of 6.8 L. Also, he is having bowel movements. Will continue with the same management. OBJECTIVE: Vital Signs: Temperature 98.1 degrees, pulse 75, respiratory rate 16, blood pressure 134/55, oxygen saturation 100% on room air. HEENT: Head normocephalic. No trauma. PERRLA. Icteric sclerae. Neck: Supple. No JVD. No masses. Central trachea. Chest: Clear to auscultation. Some crepitus at the bases. Abdomen: Soft, distended, some tenderness to palpation mostly at the level of the upper abdomen and left upper quadrant. There is hepatosplenomegaly, collateral circulation on the anterior abdominal wall, and some spider angiomata as well. Extremities: No edema, no clubbing, no cyanosis. They are covered with a dressing. Apparently, he has a nonhealing ulcer on his left leg, but it is also covered. Neurological: The patient is alert and oriented x3. No focal deficits. LABORATORY DATA: WBC 3.5, hemoglobin 8.1, hematocrit 27.6, platelets 80,000. Sodium 137, potassium 3.7, chloride 99, bicarbonate 29, BUN 13, creatinine 1, glucose 125, calcium 8.3. Magnesium 1.6. Total bilirubin 10.5, AST 101, ALT 33, alkaline phosphatase 216, albumin 2.4. ASSESSMENT AND PLAN: 1. Alcohol-induced liver cirrhosis, complicated with portal hypertension and splenomegaly, mild ascites and pancytopenia. Continue with the same management. There is a possibility of spontaneous bacterial peritonitis, and this patient has been placed on antibiotics. No paracentesis has been done because the amount of fluid is small. 2. 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 Aware. This patient will follow up with Dr. Mohan to rule out any other possibility of pancytopenia, but I do believe it is just related to his current condition. 3. Abdominal pain, likely due to hepatosplenomegaly. CT of the abdomen showed a small amount of abdomen and pelvic ascites, liver cirrhosis, and marked splenomegaly, resolution of right pleural effusion. 4. History of alcohol abuse. Apparently, he stopped drinking more than 1 year ago. We will just monitor. 5. Coagulopathy due to liver cirrhosis. cc: Vic Tate MD
[2019-04-06] MEDS: VITAMIN K 10 MG in NS 50 ML IV SCH (09:53)
--- NOTE | 2019-04-06 16:22 | GASTROENTEROLOGY PROGRESS NOTE ---
DATE: 04/06/2019 SUBJECTIVE: Mr. Robles is a 44-year-old male resting in bed. He has denied any vomiting but he did say that he felt a little bit nauseated when even having his breakfast today and he also had a bowel movement today. OBJECTIVE: Vital Signs: Temperature 97.6 degrees, pulse 77, respirations 18, blood pressure 154/68, oxygen saturation 100% on room air. His weight is 355 pounds. BMI is 43.4 kg/m2. General: He is alert, oriented x3, and in no acute distress. The patient is morbidly obese. HEENT: Pale conjunctivae. Scleral icterus. PERRL. Neck: Supple. Lungs: Clear to auscultation in the anterior lebron. Cardiovascular: Regular rate and rhythm. Abdomen: Obese, distended, positive ascites. Hypoactive bowel sounds heard in all 4 quadrants. Extremities: No clubbing, no cyanosis. The patient has Unna boots bilaterally. He has some ulcers on his left leg and his dog had scratched him on his right leg. Neurologic: Alert and oriented x3. Laboratory Data: WBCs 3.51, RBCs 2.79, hemoglobin 8.1, hematocrit is 27.6, platelet count is 80,000. Coagulation: PT 19.6, INR 1.63. Sodium 137, potassium was 3.7, chloride 99, carbon dioxide 29, anion gap 9, BUN 13, creatinine 1.0, glucose 125, calcium 8.3. Total bilirubin 10.58, AST 101, ALT 33, alkaline phosphatase is 216. Imaging: Abdominal ultrasound showed trace ascites but no paracentesis was done. IMPRESSION: 1. Alcoholic cirrhosis. 3. Abdominal pain, rule out spontaneous bacterial peritonitis. 4. Coagulopathy. 5. Anemia. 7. Ascites. 8. Jaundice. 9. Hyponatremia 10. Esophageal varices PLAN: The patient is currently on GI prophylaxis, Protonix 40 mg daily. He is receiving lactulose for his constipation. The patient is on vitamin K for his coagulopathy. He is also receiving antibiotic, Rocephin, for his abdominal pain and suspicion of bacterial peritonitis. The patient is on Lasix and Aldactone. We will monitor his kidney functions and electrolytes closely. For his nausea, he is receiving antiemetic, Zofran. Liver function test today was total bilirubin 10.58, AST 101, ALT 33, alkaline phosphatase 216. We will continue to monitor his CBCs, BMPs, and INR, and follow the plan of care per PCP. This plan was discussed with Dr. Salazar Please call us for any further questions or concerns. Dictated by CINTHIA Zuñiga for Julien Salazar MD cc: Julien Salazar MD Physician Attestation I have seen and examined the patient. I have discussed and reviewed the the note by Kya VICENTE and agree with findings and plan as documented. In brief, Mr. Thom Robles is a 44 year old man with h/o morbid obesity, pancytopenia, iron deficiency, decompensated ETOH cirrhosis with ascites, esophageal varices who presented with worsening decompensation of his underlying cirrhosis with worsening ascites in setting of non-compliance with low Na diet. Infectious workup negative. Ascites too small to tap. Patient was empirically treated with abx and diuretics with improvement. His MELD decreased from 27 to 23 today. LFTs improving. He denies any symptoms. No confusion or GI bleeding. He has appointment at [facility] Friday. 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 We discussed compliance with low Na diet, home diuretics, and continued avoidance of alcohol. Will sign off. Please call with questions. VIRGIL
[2019-04-06] MEDS: PROTONIX IV SCH (22:14)
[2019-04-06] MEDS: SODIUM CHLORIDE 0.9% INJ SCH (22:15)
[2019-04-07] MEDS: MORPHINE IV PRN ×3 (02:42→10:59)
[2019-04-07] MEDS: ZOFRAN IV PRN ×3 (02:42→10:58)
[2019-04-07 07:10] LABS: AGAP 5; ALB/GLOB RATIO 0.7; ALBUMIN 2.5 g/dL (3.5-5.0); ALKALINE PHOSPHATASE 201 U/L (32-122); BUN 11 mg/dL (8-22); CALCIUM 8.3 mg/dL (8.8-10.2); CHLORIDE 98 mmol/L (98-107); COSMO 269; CREATININE 0.9 mg/dL (0.7-1.2); ESTIMATED GFR > 60; GLUCOSE 124 mg/dL (70-104); GOT 90 U/L (10-34); GPT 32 U/L (10-44); POTASSIUM 4.1 mmol/L (3.5-5.1); SODIUM 134 mmol/L (136-145); TCO2 31 mmol/L (25-35); TOTAL BILIRUBIN 11.48 mg/dL (0.20-1.00); TOTAL PROTEIN 5.9 g/dL (6.3-8.3)
[2019-04-07] MEDS: ALDACTONE PO SCH (08:58)
[2019-04-07] MEDS: LACTULOSE PO SCH (08:58)
[2019-04-07] MEDS: ROCEPHIN 1 GM in NS 50 ML IV SCH (08:59)
[2019-04-07] MEDS ORDERED: ROCEPHIN ONE (09:11)
[2019-04-07] MEDS: LASIX IV SCH (11:01)
[2019-04-07 11:36] VITALS: BP 135/55
--- NOTE | 2019-04-07 16:30 | GASTROENTEROLOGY PROGRESS NOTE ---
DATE: 04/07/2019 SUBJECTIVE: Mr. Robles is a 44-year-old male who was resting in bed, denied any nausea, vomiting, or abdominal pain. He did mention having 2 bowel movements today. OBJECTIVE: Vital Signs: Temperature 98.2 degrees, pulse 77, respirations 16, blood pressure 134/56, oxygen saturation 99% on room air. The patient's weight is 355 pounds. BMI is 43.4 kg/m2. General: He is alert, oriented x3, and in no acute distress. HEENT: Pale conjunctivae, no icterus. PERRL. Sclera mild icterus. Neck: Supple. Lungs: Clear to auscultation in the anterior lebron. Cardiovascular: Regular rate and rhythm. Abdomen: Morbidly obese, soft, nontender. Hypoactive bowel sounds heard in all 4 quadrants. Extremities: The patient has Unna boots bilaterally. Neurologic: Alert oriented x3. LABORATORY DATA: WBC is 3.51, RBC 2.79, hemoglobin 8.1, hematocrit 27.6, platelet count is 80,000. PT 19.6 degrees, INR 1.63. Sodium 134, potassium 4.1, chloride 98, carbon dioxide 31, anion gap 5, BUN 11, creatinine 0.9 glucose 124, calcium 8.3, total bilirubin 11.48, AST 90, ALT 32, alkaline phos 201, albumin 2.5. IMPRESSION/PLAN: Alcoholic cirrhosis Splenomegaly Coagulopathy Anemia Constipation Ascites Jaundice Obesity PLAN: Mr. Robles is a 44 year old male who is seen by GI for worsening decompensated cirrhosis. U/S guided paracentesis was done on 04/05 but the ascites fluid was not enough to sample. His LFT's are trending downwards. Patient has denied any nausea, vomiting, or abdominal pain. We will continue him on Protonix IV daily and for his constipation we will continue him on lactulose 30 mL 3 times a day and we will hold it if he has more than 3 bowel movements in 24 hours. The patient mentioned having an appointment with Dr. Vides at [place] on Friday. He is getting discharged today. Counselled patient on reducing weight and following a low sodium diet. This plan was discussed with Dr. Salazar. Please call us for any further questions or concerns. Dictated by CINTHIA Zuñiga for Julien Salazar MD [facility]
--- NOTE | 2019-04-08 12:30 | DISCHARGE SUMMARY ---
ADMISSION DATE: 04/02/2019 DISCHARGE DATE: 04/07/2019 DISCHARGE DIAGNOSES: 1. Alcohol-induced liver cirrhosis. 2. 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 3. Abdominal pain, likely due to hepatosplenomegaly. 4. History of alcohol abuse. 5. Coagulopathy due to liver cirrhosis. 6. Morbid obesity with a body mass index around 43.4. PROCEDURES PERFORMED: Chest x-ray dated 04/02/2019, impression: Mild cardiomegaly. Abdomen ultrasound dated 04/03/2019, impression: Small amount of ascites, hepatomegaly with fatty infiltration, splenomegaly, cholecystectomy. Echocardiogram dated 04/04/2019, conclusion: Mild concentric left ventricular hypertrophy with estimated left ventricular ejection fraction of at least 65%. Abdomen and pelvis CT scan dated 04/04/2019, impression: Interval development of a [id number] amount of abdominal and pelvic ascites, cirrhosis with marked splenomegaly, cholecystectomy, resolution of the tiny right pleural effusion. Abdomen ultrasound dated 04/05/2019, impression: Trace ascites, severe splenomegaly. HOSPITAL COURSE: A 44-year-old male presented to [facility] ER complaining of increased abdominal and lower extremity swelling and increased shortness of breath. Apparently, he has had at least a 25-pound weight gain in a week. He has a history of liver cirrhosis, jaundice to his entire body. His abdomen is grossly distended. Abdomen ultrasound showed a small amount of ascites, but hepatomegaly with fatty infiltration and a large spleen, splenomegaly. Laboratory showed sodium 129, magnesium 1.4, total bilirubin of 12, but on previous hospitalization, his bilirubin was around 3.5 on 01/24/2019. His MELD score at that time, as per the practitioner, was around 26. Lactate level upon arrival 2.3. Subsequent repeat per protocol was 1.5 and 1.4. He was admitted and transferred to [facility] for GI management. Abdomen and pelvis CT scan showed interval development of small-to- moderate amount of abdominal and pelvic ascites, cirrhosis, and marked splenomegaly. We tried to do an ultrasound-guided paracenteses, but the amount of ascites was small. We started diuresing this patient, and actually Gastroenterology Department was following this patient closely. We actually had a negative balance of 10.7 L at the moment of discharge, and this patient is feeling much better. He called his machine operator packaging, who I believe is a precision thread grinder operator also, and he has an appointment for next Friday, in 5 days. We had a large conversation about diet, and we recommended a low-salt diet, and also be careful with the amount of fluid that he drinks. Of course, take his medications as prescribed. Basically, he will be discharged with the medications that he has been taking at home, and also I will add lactulose. Case has been discussed with Gastroenterology Department, who recommended to discharge this patient, and follow up with his machine operator packaging/precision thread grinder operator. PHYSICAL EXAMINATION: Vital Signs: Temperature 98.4 degrees, pulse 77, respiratory rate 18, blood pressure 135/55, oxygen saturation 100% on room air. HEENT: Head normocephalic. No trauma. PERRLA. Icteric sclerae. Skin: Jaundiced. Neck: Supple. No JVD. No masses. Central trachea. Chest: Clear to auscultation. Some crepitus at the bases. Abdomen: Soft, distended. Some tenderness to palpation at the level of the upper abdomen, especially on the left upper quadrant. There is hepatosplenomegaly, collateral circulation on the anterior abdominal wall, and some spider angiomata as well, mostly in his thoracic area. Extremities: No edema, no clubbing, no cyanosis. They are covered with a dressing. Apparently, he has a nonhealing ulcer on his left leg that Wound Care has been taking care of as an outpatient. Neurological: This patient is alert. He is oriented x3. No focal deficits. LABORATORY DATA: Sodium 134, potassium 4.1, chloride 98, bicarbonate 31, BUN 11, creatinine 0.9, glucose 124, calcium 8.3. Total bilirubin 11.4, AST 90, ALT 32, alkaline phosphatase 201, albumin 2.5. DISCHARGE MEDICATIONS: Colchicine 0.6 mg p.o. daily as needed, furosemide 40 mg p.o. daily, gabapentin 800 mg p.o. 4 times a day, [place] 10 t.i.d. as needed, lactulose 30 mL p.o. t.i.d. to achieve 3 bowel movements per day (the patient has been instructed to decrease the dose if he has more than 3 bowel movements), lansoprazole 30 mg p.o. daily, methocarbamol 500 mg p.o. b.i.d., Januvia 100 mg p.o. daily, spironolactone 100 mg p.o. daily, and tramadol 50 mg p.o. b.i.d. Like I mentioned before, these are the medications prescribed before for this patient, and I only added lactulose. TIME SPENT: Time discharging this patient was 25 minutes. cc: Vic Tate MD
== END 2019-04-07 11:59 | disposition home or self-care (01) | DRG 432 ==
LOC: P.ED 18:07 → P.MEDSURG 22:55 → SUATTDRO 22:55 → 4N 04-03 15:39
PROVIDERS: ATTEND Internal Medicine

== ENCOUNTER 2019-04-30 13:18 | Inpatient (IN) ==
[2019-04-30 14:02] LABS: URINE SOURCE CLEAN CATCH
[2019-04-30 14:04] LABS: BILIRUBIN URINE NEGATIVE (NEGATIVE); BLOOD URINE NEGATIVE (NEGATIVE); COLOR YELLOW; GLUCOSE URINE NEGATIVE (NEGATIVE); KETONE URINE NEGATIVE (NEGATIVE); LEUKOCYTES URINE NEGATIVE (NEGATIVE); NITRITE URINE NEGATIVE (NEGATIVE); PH URINE 6.5; PROTEIN URINE NEGATIVE (NEGATIVE); SP GRAVITY URINE 1.006; TURBIDITY URINE CLEAR (CLEAR); UR EPITHELIAL CELLS <10 /HPF (<10); URINE BACTERIA NEGATIVE /HPF; URINE RBC <10 /HPF (<10); URINE WBC <10 /HPF (<10); UROBILINOGEN URINE NORMAL (NORMAL)
[2019-04-30 14:05] LABS: BASO# 0.03 X1000 (0.0-0.2); BASO% 0.5 % (0.0-0.8); EOS% 1.7 % (0.0-10.0); HEMATOCRIT 22.9 % (42.0-52.0); HEMOGLOBIN 7.1 g/dL (14.0-18.0); IMM GRAN# 0.09 X1000 (0.0-0.04); IMM GRAN% 1.6 % (0.0-0.5); LYMPH# 1.14 X1000 (1.2-3.4); LYMPH% 19.9 % (20.5-51.1); MCV 93.5 FL (81-99); MONO# 1.01 X1000 (0.11-0.59); MONO% 17.7 % (1.7-9.3); MPV 8.8 FL (7.4-10.4); NEUT# 3.35 X1000 (1.4-6.5); NEUT% 58.6 % (42.2-75.2); PLT 205 X1000 (130-400); RBC 2.45 XMIL (4.7-6.1); RDW 19.3 % (11.5-14.5); WBC 5.72 X1000 (4.8-10.8)
[2019-04-30 14:18] LABS: ESTIMATED GFR > 60
[2019-04-30 14:24] LABS: AGAP 10; ALBUMIN 3.2 g/dL (3.5-5.0); ALKALINE PHOSPHATASE 105 U/L (32-122); BUN 20 mg/dL (8-22); CALCIUM 8.8 mg/dL (8.8-10.2); CHLORIDE 87 mmol/L (98-107); COSMO 253; CREATININE 0.9 mg/dL (0.7-1.2); GLUCOSE 171 mg/dL (70-104); GOT 41 U/L (10-34); GPT 16 U/L (10-44); SODIUM 122 mmol/L (136-145); TCO2 25 mmol/L (25-35)
[2019-04-30] MEDS ORDERED: BENADRYL PO ONE (15:01)
[2019-04-30] MEDS ORDERED: NS 500 ML IV ONE (15:01)
[2019-04-30] MEDS ORDERED: LASIX IV SCH (15:15)
--- NOTE | 2019-04-30 18:00 | PROVIDER DOCUMENTATION ---
This chart was entered by Enriqueta Ramirez Scribe, acting as scribe for Julien Pate MD. HPI-General Adult - General Chief Complaint: Abnormal Lab[s] Stated Complaint: ABNORMAL LABS Time Seen by Provider: 04/30/19 15:24 Source: patient Allergies/Adverse Reactions: Patient Allergies Allergy/AdvReac Type Severity Reaction Status Date / Time No Known Allergies Allergy Verified 04/30/19 14:44 Home Medications: Home Medication List Medication Instructions Recorded Confirmed Last Taken Type Furosemide [Lasix] 80 mg PO DAILY 12/30/13 04/30/19 04/03/19 00:00 History Sitagliptin [Januvia] 100 mg PO DAILY #30 tablet 10/22/14 04/30/19 04/02/19 08 :00 Rx Methocarbamol 500 mg PO BID PRN 01/26/18 04/30/19 04/02/19 08:00 History Gabapentin 800 mg PO 4XDAY 10/14/18 04/30/19 04/02/19 08:00 History Hydrocodone/APAP 10 mg/325 mg 1 ea PO TID PRN 01/23/19 04/30/19 04/02/19 08:00 History [[place]-10] Lansoprazole 30 mg PO DAILY@0700 04/02/19 04/30/19 04/02/19 08:00 History Tramadol HCl 50 mg PO BID 04/02/19 04/30/19 04/01/19 16:00 History Colchicine [Colcrys] 0.6 mg PO DAILY PRN PRN 04/03/19 04/30/19 Unknown History Albuterol Sulfate Inhaler 2 puff INH BID 04/30/19 04/30/19 Unknown History [Ventolin Hfa] Lactulose 45 ml PO Q6HR 04/30/19 04/30/19 Unknown History Spironolactone [Aldactone] 100 mg PO BID 04/30/19 04/30/19 Unknown History - History of Present Illness -Gen Adult Nature of Presenting Problems: Patient is a 44 year old male who presents with abnormal labs. States he was called by PCP's office 1 hour prior to arrival and was informed his hemoglobin was low. History of cirrhosis. Location of Pain/Injury: reports: none Quality of Pain: reports: none Severity: reports: mild Onset/Duration: reports: gradual Timing: reports: still present Context/Activities at Onset: reports: light activity Associated Symptoms: reports: denies symptoms Similar Symptoms Previously?: Yes Recently seen or treated by another doctor?: Yes Review of Systems - Adult - REVIEW OF SYSTEMS - ADULT Constitutional: reports: no symptoms reported Eyes: reports: no symptoms reported Ears, Nose, Mouth & Throat: reports: no symptoms reported Cardiovascular: reports: no symptoms reported Respiratory: reports: no symptoms reported Gastrointestinal: reports: no symptoms reported Genitourinary: reports: no symptoms reported Musculoskeletal: reports: no symptoms reported Integumentary: reports: no symptoms reported Neurological: reports: no symptoms reported Psychiatric: reports: no symptoms reported Endocrine: reports: no symptoms reported Hematologic/Lymphatic: reports: no symptoms reported Allergic/Immunologic: reports: no symptoms reported All Other Systems: Reviewed and Negative Past History - Adult - PAST MEDICAL HISTORY-ADULT Review of Records: reports: Old Records Reviewed, Nursing Assessment Review, Medications Reviewed, Social history reviewed & non-contributory. Major Childhood Illnesses: reports: denies history Cardiovascular: reports: HTN, hyperlipidemia Respiratory: reports: asthma, COPD Gastrointestinal: reports: colitis, hepatitis, liver disease (cirrhosis), ulcer Obstetrical/Gynecological: reports: denies history Genitourinary: reports: kidney disease Musculoskeletal: reports: arthritis, chronic pain, fibromyalgia, other Neurological: reports: denies history Psychiatric: reports: denies history Endocrine/Immune: reports: Diabetes, other (hep c) Other Conditions: reports: denies history - PRIOR SURGERIES/PROCEDURES Surgical/Procedure History: reports: cholecystectomy, orthopedic (extremity), back/neck (back) - IMMUNIZATION STATUS Childhood Immunizations: See Nurse Assessment Flu Vaccine: See Nurse Assessment - FAMILY HISTORY Family History: reviewed, not pertinent - SOCIAL HISTORY Smoking: denies Alcohol Use Frequency: sober (former use) Living Situation: family Physical Exam-General - PHYSICAL EXAM-ADULT Initial Vital Signs Reviewed: Yes - CONSTITUTIONAL General Appearance: alert, no apparent distress. negative: lethargic - EYES Eyes: scleral icterus. negative: subconjunctival hemorrhage, sunken eyes - HEAD, EARS, NOSE, MOUTH & THROAT HENMT: normocephalic/atraumatic, moist mucous membranes. negative: angioedema - RESPIRATORY Respiratory: chest non-tender, lungs clear, normal breath sounds. negative: crackles, rhonchi - CARDIOVASCULAR Cardiovascular: normal peripheral pulses, regular rate, rhythm. negative: tachycardia - GASTROINTESTINAL (ABDOMEN) Abdominal Exam: normal bowel sounds, non tender, soft, distended, hepatomegaly. negative: guarding - MUSCULOSKELETAL Extremity: non-tender, other (3 + pitting edema to bilateral lower extremities). negative: deformity, erythema - SKIN Integumentary: jaundice (mild). negative: diaphoresis, rash - NEUROLOGIC Neurologic: grossly normal. negative: aphasia, facial droop - PSYCHIATRIC Psych/Mental Status: normal mood/affect, oriented x 3. negative: anxious Progress - PLAN OF CARE/RESULTS Progress/Plan/Lab Results: Vital Signs - 8 hr 04/30/19 13:30 Temperature 97.7 F Pulse Rate 91 H Respiratory Rate 20 Blood Pressure 156/65 O2 Sat by Pulse Oximetry 100 Laboratory Results - last 24 hr 04/30/19 04/30/19 04/30/19 13:28 13:51 13:51 WBC 5.72 RBC 2.45 L Hgb 7.1 L Hct 22.9 L MCV 93.5 MCH 29.0 MCHC 31.0 L RDW Std Deviation 19.3 H Plt Count 205 MPV 8.8 Immature Gran % (Auto) 1.6 H Neut % (Auto) 58.6 Lymph % (Auto) 19.9 L [place] % (Auto) 17.7 H Eos % (Auto) 1.7 Baso % (Auto) 0.5 Immature Gran # (Auto) 0.09 H Neut # (Auto) 3.35 Lymph # (Auto) 1.14 L [place] # (Auto) 1.01 H Eos # (Auto) 0.10 Baso # (Auto) 0.03 Sodium 122 L Potassium 5.0 Chloride 87 L Carbon Dioxide 25 Anion Gap 10 BUN 20 Creatinine 0.9 Estimated GFR/1.73 m2 > 60 BUN/Creatinine Ratio 22 Glucose 171 H Calculated Osmolality 253 Calcium 8.8 Total Bilirubin 4.70 H AST 41 H ALT 16 Alkaline Phosphatase 105 Total Protein 7.0 Albumin 3.2 L Globulin 4.0 Albumin/Globulin Ratio 1.0 Urine Source CLEAN CATCH Urine Color YELLOW Urine Turbidity CLEAR Urine pH 6.5 Ur Specific [place] 1.006 Urine Protein NEGATIVE Ur Glucose (Stick) NEGATIVE Ur Ketones (Stick) NEGATIVE Urine Blood NEGATIVE Urine Nitrite NEGATIVE Urine Bilirubin NEGATIVE Urobilinogen Dipstick NORMAL Urine Leukocytes NEGATIVE Urine WBC (Auto) <10 Urine RBC (Auto) <10 U Epithel Cells (Auto) <10 Urine Bacteria (Auto) NEGATIVE Blood Type Antibody Screen Crossmatch 04/30/19 13:51 WBC RBC Hgb Hct MCV MCH MCHC RDW Std Deviation Plt Count MPV Immature Gran % (Auto) Neut % (Auto) Lymph % (Auto) Lam[place] % (Auto) Eos % (Auto) Baso % (Auto) Immature Gran # (Auto) Neut # (Auto) Lymph # (Auto) [place] # (Auto) Eos # (Auto) Baso # (Auto) Sodium Potassium Chloride Carbon Dioxide Anion Gap BUN Creatinine Estimated GFR/1.73 m2 BUN/Creatinine Ratio Glucose Calculated Osmolality Calcium Total Bilirubin AST ALT Alkaline Phosphatase Total Protein Albumin Globulin Albumin/Globulin Ratio Urine Source Urine Color Urine Turbidity Urine pH Ur Specific [place] Urine Protein Ur Glucose (Stick) Ur Ketones (Stick) Urine Blood Urine Nitrite Urine Bilirubin Urobilinogen Dipstick Urine Leukocytes Urine WBC (Auto) Urine RBC (Auto) U Epithel Cells (Auto) Urine Bacteria (Auto) Blood Type A POSITIVE Antibody Screen NEGATIVE Crossmatch See Detail Orders Category Date Time Status Admit - [facility] Routine AdmDCTranf 04/30/19 14:58 Active Activity - Up with Assistance ORDERED Care 04/30/19 14:58 Active DVT/PE Risk Assess/Protocol [QM] ORDERED Care 04/30/19 14:58 Active FSBS/Accucheck Result AC + HS Care 04/30/19 14:58 Active Intake and Output-Strict ORDERED Care 04/30/19 14:58 Active Transfuse .Give-Transfuse Care 04/30/19 15:01 Active Vital Signs Order Q 8-HR ASSESS Care 04/30/19 14:58 Active Z-Document. for Tele Applied ORDERED Care 04/30/19 14:59 Active Diabetic Diet Diet 04/30/19 14:59 Active CBC WITH DIFF [HEME] Stat Lab 04/30/19 13:51 Completed CBC WITH NO DIFF [HEME] Routine Lab 05/01/19 06:00 Ordered COMPREHENSIVE METABOLIC PANEL [CHEM] Routine Lab 05/01/19 06:00 Uncollected COMPREHENSIVE METABOLIC PANEL [CHEM] Stat Lab 04/30/19 13:51 Completed LRPC (RED CELLS) [BBK] Routine Lab 04/30/19 13:51 Results MAGNESIUM [CHEM] Routine Lab 05/01/19 06:00 Uncollected TYPE & SCREEN [BBK] Stat Lab 04/30/19 13:51 Results UA [URINALYSIS W/POSS RFLX CULT] [URINALYSIS] Stat Lab 04/30/19 13:28 Completed 0.9% Sodium Chloride Inj [Ns] 500 ml Med 04/30/19 15:01 Discontinued IV As Directed mls/hr Diphenhydramine [Benadryl] Med 04/30/19 15:01 Discontinued 25 mg PO PREMED ONE Furosemide [Lasix] Med 04/30/19 15:15 Active 40 mg IV AFTER TRANSFUSION Telemetry [OM.EQ] Routine Oth 04/30/19 14:58 Active Transfer/Admit Order [TRANSFER] Routine Transfer 04/30/19 15:05 Ordered Result Diagrams: 05/01/19 05:06 05/01/19 05:06 Departure - Departure Date of Disposition Decision: 04/30/19 Time of Disposition Decision: 17:10 DIAGNOSIS: Anemia Qualifiers: Anemia type: unspecified type Qualified Code(s): D64.9 - Anemia, unspecified Disposition: ADMITTED INPATIENT 09 Certified Medical Emergency: Emergent Condition: Stable - Critical Care Note This patient required my direct & personal management of CC.: No Attestation - Physician/ SABI Attestation The physician spent face to face time with patient:: Yes Advanced Practice Provider documentation review:: Supervising physician onsite and consulted in the evaluation and care of this patient. The physician did have a face to face encounter with the patient. This chart was documented by the indicated scribe, (Enriqueta Ramirez Scribe) and accurately reflects the services I performed and decisions made by me, Julien Pate MD, as attested by the provider's signature.
[2019-04-30] MEDS ORDERED: COLCRYS PO PRN (22:47)
[2019-04-30] MEDS ORDERED: ROBAXIN PO PRN (22:47)
--- NOTE | 2019-05-01 00:19 | HISTORY AND PHYSICAL ---
CHIEF COMPLAINT: Fatigue. HISTORY OF PRESENT ILLNESS: The patient is a 44-year-old male who was actually just recently seen in the office. He has been in the hospital due to cirrhosis and hyperbilirubinemia. He had followup labs in the office and was noted to have a hemoglobin of 6.5. His repeat today is 7. His sodium also was low today at 122, previously was at 134 to 135. SOCIAL HISTORY: The patient is , lives at home. Currently employed at [employer]. PAST MEDICAL HISTORY: Cirrhosis, chronic renal failure, hypertension, COPD, asthma, chronic gout, diabetes, hyperlipidemia, recent diagnosis of jaundice. PAST SURGICAL HISTORY: Cholecystectomy, back surgery, vascular ablation, bilateral knee repair, anal fistula repair x2. FAMILY HISTORY: Significant for hypertension and coronary artery disease. REVIEW OF SYSTEMS: As noted above. The patient has a remote long history of alcohol use, but does not drink currently. He states he quit in 01/2018. Denies any fevers or chills. Denies headaches, blurred vision, change in vision. Denies any hematochezia, melena, hematemesis, hematuria or dysuria. No frequency or urgency. Denies diarrhea. States that he has been tired and fatigued. He has been lightheaded. Denies any falling. Denies chest pain or palpitations. Denies any shortness of breath. Denies any skin rashes. Notes that the jaundice of his skin is continuing to improve. His appetite is improving. MEDICATIONS: Please see medication reconciliation in the chart. The patient currently does not have a list of medications with him. We will adjust these as his list is made available. PHYSICAL EXAMINATION: VITAL SIGNS: Reviewed. He is awake and alert. He is in no respiratory distress. HEENT: Normocephalic. NECK: Supple. CARDIOVASCULAR: Regular rate. CHEST: Clear. ABDOMEN: Soft, obese. Positive fluid wave. Nontender. Positive distended. EXTREMITIES: Moves all extremities. He has trace edema. NEUROLOGIC: No changes. ASSESSMENT: 1. Hyponatremia. 2. Anemia. 3. Cirrhosis. 4. Hypertension. 5. Chronic obstructive pulmonary disease. 6. Asthma. 7. Gout. 8. Diabetes. 9. Jaundice, improving. PLAN: We are going to admit the patient to the hospital. IV fluids, type and crossmatch, transfuse 2 units. Follow his sodium, recheck in the a.m. Further orders as needed. cc: Ritesh Young MD
[2019-05-01] MEDS: NORCO-10 PO PRN ×3 (00:53→20:53)
[2019-05-01] MEDS: LACTULOSE PO SCH ×5 (03:26→20:55)
[2019-05-01 05:32] LABS: HEMATOCRIT 22.4 % (42.0-52.0); HEMOGLOBIN 6.9 g/dL (14.0-18.0); MCH 28.5 PG (27-31); MCHC 30.8 g/dL (33-37); MCV 92.6 FL (81-99); MPV 9.1 FL (7.4-10.4); RBC 2.42 XMIL (4.7-6.1); RDW 18.8 % (11.5-14.5); WBC 5.05 X1000 (4.8-10.8)
[2019-05-01 05:41] LABS: ESTIMATED GFR > 60
[2019-05-01 05:53] LABS: AGAP 9; ALBUMIN 2.8 g/dL (3.5-5.0); ALKALINE PHOSPHATASE 90 U/L (32-122); BUN 20 mg/dL (8-22); CALCIUM 8.4 mg/dL (8.8-10.2); CHLORIDE 87 mmol/L (98-107); COSMO 250; CREATININE 0.9 mg/dL (0.7-1.2); GLUCOSE 150 mg/dL (70-104); GOT 33 U/L (10-34); GPT 14 U/L (10-44); MAGNESIUM 1.7 mg/dL (1.5-2.7); POTASSIUM 4.8 mmol/L (3.5-5.1); SODIUM 121 mmol/L (136-145); TCO2 25 mmol/L (25-35); TOTAL PROTEIN 6.1 g/dL (6.3-8.3)
[2019-05-01] MEDS: PRILOSEC PO SCH (06:14)
[2019-05-01] MEDS ORDERED: BENADRYL PO ONE (08:21)
[2019-05-01] MEDS ORDERED: NS 500 ML IV ONE (08:21)
[2019-05-01] MEDS: VENTOLIN HFA INH SCH ×2 (08:35→18:49)
[2019-05-01] MEDS ORDERED: LASIX PO SCH (09:00)
[2019-05-01 09:36] LABS: INR 1.3; PROTIME 16.9 Seconds (11.0-16.0)
[2019-05-01] MEDS: ALDACTONE PO SCH ×2 (09:36→20:54)
[2019-05-01] MEDS: JANUVIA PO SCH (09:36)
[2019-05-01] MEDS: ULTRAM PO SCH ×2 (09:36→20:54)
[2019-05-01] MEDS: NEURONTIN PO SCH ×4 (09:37→20:54)
--- NOTE | 2019-05-01 19:07 | PROGRESS NOTE ---
DATE: 05/01/2019 SUBJECTIVE: The patient notes that he feels fine. Denies any chest pain or palpitations. Denies any shortness of breath. States he still has chronic severe pain in his lower extremities with frequent pins and needles. Denies any nausea, vomiting or current abdominal pain. Notes that his abdomen is swollen, but does not think it is any larger than previous. OBJECTIVE: Vital signs reviewed. Temperature 98.4 degrees, pulse 89, respiratory rate 18, BP 129/49.General: The patient is awake, currently in no respiratory distress. HEENT: Normocephalic. Neck supple. Cardiovascular: Regular rate. Chest clear. Abdomen soft, distended. Positive fluid wave. Extremities: He has edema of bilateral lower extremities. ASSESSMENT AND PLAN: 1. Anemia. His hemoglobin and hematocrit actually dropped slightly after his second unit of blood. Certainly worrisome given his chronic illnesses, that he may have bone marrow suppression. He denies any knowledge of blood in his stool. We are going to Hemoccult his stools as well. 2. Hyperbilirubinemia. 3. Cirrhosis. 4. Ascites. 5. Diabetes. 6. Gout. 7. Chronic pain. 8. Diabetic neuropathy. 9. Hyponatremia. His sodium is low at 121. He is currently on Lasix and Aldactone. We are going to hold his Lasix and will follow. cc: Ritesh Young MD
[2019-05-01 23:11] LABS: OCCULT BLOOD 1 POSITIVE (NEGATIVE)
[2019-05-02] MEDS: LACTULOSE PO SCH ×5 (01:24→21:10)
[2019-05-02 06:33] LABS: AGAP 9; ALBUMIN 2.8 g/dL (3.5-5.0); ALKALINE PHOSPHATASE 97 U/L (32-122); BUN 17 mg/dL (8-22); CALCIUM 8.3 mg/dL (8.8-10.2); CHLORIDE 91 mmol/L (98-107); COSMO 254; CREATININE 0.7 mg/dL (0.7-1.2); ESTIMATED GFR > 60; GLUCOSE 124 mg/dL (70-104); GOT 35 U/L (10-34); GPT 13 U/L (10-44); POTASSIUM 4.5 mmol/L (3.5-5.1); SODIUM 125 mmol/L (136-145); TCO2 25 mmol/L (25-35); TOTAL PROTEIN 6.2 g/dL (6.3-8.3)
[2019-05-02 06:39] LABS: HEMATOCRIT 25.5 % (42.0-52.0); HEMOGLOBIN 8.1 g/dL (14.0-18.0); MCH 29.1 PG (27-31); MCHC 31.8 g/dL (33-37); MCV 91.7 FL (81-99); RBC 2.78 XMIL (4.7-6.1); WBC 5.55 X1000 (4.8-10.8)
[2019-05-02] MEDS: PRILOSEC PO SCH (06:39)
[2019-05-02] MEDS: VENTOLIN HFA INH SCH ×2 (08:34→19:21)
[2019-05-02] MEDS: NEURONTIN PO SCH ×4 (08:43→21:03)
[2019-05-02] MEDS: ALDACTONE PO SCH ×2 (08:43→21:02)
[2019-05-02] MEDS: NORCO-10 PO PRN ×3 (08:43→21:09)
[2019-05-02] MEDS: ULTRAM PO SCH ×2 (08:44→21:03)
[2019-05-02] MEDS: JANUVIA PO SCH (08:44)
[2019-05-02] MEDS ORDERED: COLCRYS PO PRN (10:14)
[2019-05-02] MEDS ORDERED: ROBAXIN PO PRN (10:19)
[2019-05-02] MEDS ORDERED: NORCO-10 PO PRN (10:19)
--- NOTE | 2019-05-02 10:19 | PROGRESS NOTE ---
DATE: 05/02/2019 SUBJECTIVE: Patient has no complaints. He does note that he noticed blood in his stool yesterday. Denies any current fevers or chills. Denies any chest pain, palpitations. PHYSICAL EXAMINATION: Vital Signs: Reviewed: Temp 98 degrees, pulse 89, respiratory rate 18, BP 141/66. General: Patient is very pleasant male who is in no current respiratory distress. HEENT: Normocephalic, atraumatic. PERRL. Neck: Supple. No JVD. Cardiovascular: Regular rate. No murmurs. Chest: Clear. Abdomen: Soft, obese, distended, nontender. Extremities: Moves all extremities. He has edema bilaterally but unchanged. ASSESSMENT: 1. Anemia. His hemoglobin and hematocrit was 6 and 22 on admit. After 4 units of blood he is up to 8 and 28. 2. Gastrointestinal bleed. He has heme-positive. Therefore, we are going to transfer him to [facility] for gastroenterology. He has seen Dr. Salazar in the past. Certainly concerning with his ascites the that he could have esophageal varices. We are going to continue to follow. Recheck his hemoglobin and hematocrit. 3. Ascites. 4. Cirrhosis. 5. Hyperbilirubinemia, stable at 5.0. cc: Ritesh Young MD
--- NOTE | 2019-05-02 15:24 | PROGRESS NOTE ---
DATE: 05/02/2019 SUBJECTIVE: He is transferred over here from [place]. A 44-year-old who came in with fatigue. He is a patient of Dr. Ritesh Young. He was recently seen in the office for cirrhosis. 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 It maybe at [place]. Anyway, his followup lab - hemoglobin was 6.5, repeat was 7. His sodium was 122, previous sodium is 134 to 136. So, he was put in the hospital for hyponatremia and anemia. He has gained some fluid, a little more tension in his belly. He has been followed for cirrhosis, chronic renal failure, hypertension, COPD, asthma, chronic gout, diabetes, hyperlipidemia, and recent diagnosis of jaundice. The patient states he is a lot more comfortable. OBJECTIVE: Vital Signs: His temperature was 98.5 degrees, pulse 84, respirations 17, blood pressure 154/67. HEENT: Pupils are equal and round. Lungs: Lungs are clear in all lung lebron. Cardiovascular: Regular rhythm and rate without murmur or S3. ASSESSMENT AND PLAN: 1. Anemia. His hemoglobin was 6 and hematocrit was 22 on admission. After four units of blood he is up to 8 and 28, respectively. 2. Gastrointestinal bleed. He has heme-positive stool. He has seen Dr. Salazar in the past. I think he said he has also seen Dr. Reyes, certainly concerning his ascites and possible esophageal varices, gastritis or gastric ulcer. 3. Ascites. 4. Cirrhosis. 5. Hyperbilirubinemia. His level is stable at 5. REVIEW OF HIS ORDERS: He is on Colcrys 0.6 mg p.o. daily p.r.n., Lasix 80 mg a day, Neurontin 800 mg four times a day. He states he gets his hydrocodone. He usually takes it three times a day, but he gets it usually every four hours p.r.n. at home. Lactulose 45 mL q six hours, Robaxin 500 mg b.i.d. p.r.n., Prilosec 20 mg daily, Januvia 100 mg daily, Aldactone 100 mg b.i.d., Ultram 50 mg b.i.d. cc: Armani Foy MD
--- NOTE | 2019-05-03 00:54 | GASTROENTEROLOGY CONSULTATION ---
DATE: 05/02/2019 REASON FOR CONSULT: GI bleed. HISTORY OF PRESENT ILLNESS: Mr. Robles is a 44-year-old male who has a history of cirrhosis and he is followed by [facility]. The patient was recently admitted on 04/02/2019 for cirrhosis, abdomen distention and edema on lower extremities. At that time, patient had complained that he had not had bowel movements and shortness of breath. He has history of kidney failure and he had gained a lot of weight. His labs at that time on admission showed that he had anemia, thrombocytopenia and worsening jaundice. The patient does have a history of chronic liver cirrhosis which is attributed to the history of his alcoholism. He used to drink more than 6 beers a day for more than 25 years. The patient mentioned that he quit this December. The patient follows Hepatology Department at [facility]. They had to reschedule his appointment with [facility] because the patient was being treated at [facility] for sepsis and during this admission his ultrasound of the abdomen showed evidence of small amount of ascites. The liver is enlarged measuring 22 cm in length, fatty infiltration of the liver, spleen markedly enlarged measuring 26 cm. No hydronephrosis. His gallbladder was removed. A CT scan that was done in December showed that he had cirrhosis with marked splenomegaly that was stable. He had chronic liver disease workup in September of 2018 which showed negative for acute hepatitis panel, negative for mononucleosis screen and ascitic fluid studies were negative for the AFP. His VELIA was negative and antimitochondrial antibody was negative. Antismooth muscle antibody was negative. His iron saturation on the last admission was 86 and ferritin was 91. His alpha antitrypsin level was 135 The patient's hemoglobin on this admission is 8.1 today and hematocrit is 25.5. The patient's abdomen is very distended and patient complains that he feels like he is nauseated and has abdominal tenderness all over. The patient was at [facility] on Friday and Friday. He has received almost 4 units of blood, but he also mentions that he has diarrhea and he has noticed bright red blood. The patient's last to [facility] was that they 3 weeks back and he mentioned that they juts did some blood work and increased his lactulose. The patient currently has Unna boots on his lower extremities bilaterally. PAST MEDICAL HISTORY: Hypertension, hyperlipidemia, asthma, COPD, cirrhosis likely secondary to chronic alcoholism. He quit in December. History of gastric ulcer, colon polyps, questionable varices, chronic pain, fibromyalgia, diabetes, gout, obesity, and an ulcer on his left foot. PAST SURGICAL HISTORY: Cholecystectomy, back surgery, neck surgery, bilateral knee surgery, vascular ablation, anal fissure repair x2. FAMILY HISTORY: Denies any history of liver disease. ALLERGIES: No known drug allergies. HOME MEDICATIONS: Lasix 80 mg daily, Januvia 100 mg daily, methocarbamol 500 mg b.i.d. as needed, gabapentin 600 mg 4 times a day, hydrocodone/acetaminophen 1 tablet 3 times a day as needed, tramadol 50 mg twice a day, lansoprazole 30 mg daily, colchicine 0.6 mg daily, albuterol 2 puffs twice a day, lactulose 45 mL every 6 hours, Aldactone 100 mg daily. SOCIAL HISTORY: The patient is , lives at home alone and he is currently employed. REVIEW OF SYSTEMS: As per HPI. Otherwise, 12 point review of system is negative. PHYSICAL EXAMINATION: Vital Signs: Temperature 98.5 degrees, pulse is 84, respirations 17, blood pressure 154/67, oxygen saturation 96% on room air. The patient's weight is 359 pounds. BMI is 43.8 kg/m2. General: He is alert, oriented x3, and in no acute distress. Answering questions appropriately. HEENT: Pale conjunctivae. No icterus. PERRL. Neck: Supple. Lungs: Clear to auscultation in the anterior lebron. Cardiovascular: Regular rate and rhythm. Abdomen: Distended from generalized tenderness all over. Hypoactive bowel sounds heard in all 4 quadrants. Extremities: Unna boots bilaterally. Neurologic: He is alert, oriented x3. Nonfocal. Cranial nerves 2-12 grossly intact. LABORATORIES: WBCs are 5.55, RBCs 2.78, hemoglobin 8.1, hematocrit 25.5, platelet count is 186,000. Sodium 125, potassium 4.5, chloride 91, carbon dioxide 25, anion gap 9, BUN 17, creatinine 0.7, glucose 124, calcium 8.3, total bilirubin is 5, AST 35, ALT 13, alkaline phosphate 77, albumin 2.8. Urinalysis was negative. Occult blood was positive. IMPRESSION AND PLAN: 1. Anemia. 2. Gastrointestinal bleed. 3. Liver cirrhosis. 4. Bilateral lower extremity edema. 5. Chronic obstructive pulmonary disease. 6. Asthma. 7. Gout. 8. Diabetes. 9. Jaundice, improving. 10. Hyponatremia. PLAN: Mr. Robles is a 44-year-old male with a history cirrhosis. GI has been consulted for his anemia and GI bleed. We plan to do an EGD tomorrow to find out the cause of his anemia. The patient is currently receiving lactulose 45 mL every 6 hours. He is receiving Prilosec 20 mg daily. His hemoglobin today is 8.1 and hematocrit is 25.5. The patient mentioned that he was at [facility] and so far he has received 4 units of blood. We have discussed the risks, benefits, and alternatives of the procedure to the patient. The patient acknowledged understanding of the plan of the care. Further plan of care will be based on the EGD findings. We will continue to monitor the patient and follow the plan of care per PCP. This plan was discussed with Dr. Donovan. Thank you for the consult and please call us for any further questions or concerns. Dictated by CINTHIA Zuñiga for Elroy Donovan MD cc: Elroy Donovan MD [facility]
[2019-05-03] MEDS: LACTULOSE PO SCH ×5 (00:55→22:10)
[2019-05-03] MEDS: NORCO-10 PO PRN ×5 (04:18→22:12)
[2019-05-03] MEDS ORDERED: PRILOSEC PO SCH (07:00)
[2019-05-03 07:11] LABS: HEMATOCRIT 26.7 % (42.0-52.0); HEMOGLOBIN 8.6 g/dL (14.0-18.0); MCH 30.2 PG (27-31); MCHC 32.2 g/dL (33-37); MCV 93.7 FL (81-99); MPV 9.2 FL (7.4-10.4); RBC 2.85 XMIL (4.7-6.1); RDW 18.2 % (11.5-14.5); WBC 5.98 X1000 (4.8-10.8)
[2019-05-03 07:36] LABS: AGAP 5; ALB/GLOB RATIO 0.7; ALBUMIN 2.6 g/dL (3.5-5.0); ALKALINE PHOSPHATASE 98 U/L (32-122); BUN 13 mg/dL (8-22); CALCIUM 8.8 mg/dL (8.8-10.2); CHLORIDE 92 mmol/L (98-107); COSMO 256; CREATININE 0.7 mg/dL (0.7-1.2); ESTIMATED GFR > 60; GLUCOSE 137 mg/dL (70-104); GOT 34 U/L (10-34); GPT 13 U/L (10-44); MAGNESIUM 1.8 mg/dL (1.5-2.7); POTASSIUM 4.9 mmol/L (3.5-5.1); SODIUM 126 mmol/L (136-145); TCO2 29 mmol/L (25-35); TOTAL BILIRUBIN 4.69 mg/dL (0.20-1.00); TOTAL PROTEIN 6.4 g/dL (6.3-8.3)
[2019-05-03] MEDS: VENTOLIN HFA INH SCH ×2 (08:25→19:45)
[2019-05-03 09:47] LABS: INR 1.36
--- NOTE | 2019-05-03 10:27 | PROGRESS NOTE ---
DATE: 05/03/2019 SUBJECTIVE: Mr. Robles says he still does not feel real good but maybe a little better than yesterday. No nausea. He is a little less painful, a little less abdominal discomfort. OBJECTIVE: Temperature 98.6 degrees, pulse 89, respirations 20, blood pressure 123/41. Pupils are equal and round. Lungs are clear in all lung lebron. Cardiovascular Examination: Regular rhythm and rate without murmur or S3. Abdomen is soft. Skin is warm and dry. Urine output is 6600 mL. ASSESSMENT AND PLAN: 1. Anemia. He has a history of cirrhosis and they plan on esophagogastroduodenoscopy to be done today. He was receiving lactulose 45 mL every 6 hours and Prilosec 20 mg daily. Hemoglobin was 8.1, hematocrit 12.5. He was at [facility], received 4 units of packed red blood cells. 2. Liver cirrhosis. 3. Bilateral lower extremity edema. 4. Chronic obstructive pulmonary disease. No exacerbation at this time. 5. Asthma. 6. History of gout. 7. Diabetes mellitus type 2. Check pattern of sugars, sliding scale. He presented with some hyponatremia. LABORATORY DATA: From this morning, white count 5980, hematocrit 26, hemoglobin 8.6. Sodium 126, potassium 4.9, chloride 92, BUN 13, creatinine 0.7. Blood sugars 123, 187, 137, and 131. His albumin is 2.6. cc: Armani Foy MD
[2019-05-03] MEDS ORDERED: DIPRIVAN 1% ONE ×2 (10:38→11:23)
[2019-05-03] MEDS ORDERED: XYLOCAINE-MPF 2% ONE (10:38)
--- NOTE | 2019-05-03 11:37 | ENDOSCOPY OPERATIVE NOTE ---
[facility] ENDOSCOPY OPERATIVE NOTE , EGD PROCEDURE REPORT EXAM DATE: 05/03/2019 PATIENT NAME: Thom Robles MR#: [id number] BIRTHDATE: 1975 ATTENDING: Deyvi Reyes MD STATUS: inpatient BEEF BONER: INDICATIONS: The patient is a 44 yr old male here for an EGD due to Anemia required 4 units of PRBCs ; Alcoholic cirrhosis, Ascites, Obesity, Rectal Bleeding.. PROCEDURE PERFORMED: EGD, diagnostic MEDICATIONS: Per Anesthesia ESTIMATED BLOOD LOSS: None CONSENT: The patient understands the risks and benefits of the procedure and understands that these r isks include, but are not limited to: sedation, allergic reaction, infection, perforation and/or bleeding. Alternative means of evaluation and treatment include, among others: physical exam, x-rays, and/or surgical intervention. The patient elects to proceed with this endoscopic procedure. DESCRIPTION OF PROCEDURE: During pre-op preparation period all mechanical and medical equipment was c hecked for proper function. Hand hygiene and appropriate measures for infection prevention was taken. After the risks, benefits and alternatives of the procedure were thoroughly explained, Informed consent was verified, confirmed and timeout was successfully executed by the treatment team. The patient was anesthetized with topical anesthesia and the [id number]-[id number] ([id number]) endoscope was introduced through the mouth and advanced to the second portion of the duoden um. Retroflexion was performed in the stomach and revealed no abnormalities. The gastroscope was then slowly withdraw n and removed. The patient's toleration of the procedure was good. ESOPHAGUS: The mucosa of the esophagus appeared normal. Z line at 50 cms. STOMACH: Mild portal hypertensive gastropathy was found in the entire examined stomach. Bile was no claudia in the stomach. Few gastric polyps noted in the stomach antrum with no active bleeding. DUODENUM: The duodenal mucosa showed no abnormalities in the duodenal bulb, 1st part duodenum, and 2n d part duodenum. ADVERSE EVENTS: There were no complications. IMPRESSIONS: 1. The mucosa of the esophagus appeared normal 2. Z line at 50 cms 3. Portal hypertensive gastropathy was found in the entire examined stomach 4. Bile was noted in the stomach 5. Few gastric polyps noted in the stomach antrum with no active bleeding 6. The duodenal mucosa showed no abnormalities in the duodenal bulb, 1st part duodenum, and 2nd part duodenum RECOMMENDATIONS: Colonoscopy tomorrow Start Pantoprazole 40 mg QD for 3 months Watch Hct and transfuse as needed to keep Hb7-8g/dl REPEAT EXAM: Deyvi Reyes MD eSigned: Deyvi Reyes MD 05/03/2019 11:37 AM CC: CPT CODES: 99427 Upper gastrointestinal endoscopy including esophagus, stomach, and either the du odenum and/or jejunum as appropriate; diagnostic, with or without collection of specimen(s) by brushing or washing (separate procedure) ICD CODES: The ICD and CPT codes recommended by this software are interpretations from the data that the [facility] staff has captured with the software. The verification of the translation of this report to the ICD and CPT co estefany and modifiers is the sole responsibility of the health care institution and practicing physician where this report was generated. [employer] will not be held responsible for the validity of the ICD and CPT codes i ncluded on this report. A assumes no liability for data contained or not contained herein. CPT is a registered tra demark of the [employer]. PATIENT NAME: Thom Robles MR#: [id number]
[2019-05-03] MEDS: VITAMIN K 10 MG in NS 50 ML IV SCH (11:56)
[2019-05-03] MEDS: ULTRAM PO SCH ×2 (11:57→22:13)
[2019-05-03] MEDS: NEURONTIN PO SCH ×4 (11:57→22:12)
[2019-05-03] MEDS: ALDACTONE PO SCH ×2 (11:58→22:11)
[2019-05-03] MEDS: LASIX PO SCH (11:59)
[2019-05-03] MEDS: JANUVIA PO SCH (12:00)
[2019-05-03] MEDS ORDERED: GOLYTELY PO ONE ×2 (14:00→14:51)
[2019-05-04] MEDS: NORCO-10 PO PRN ×5 (04:11→23:10)
[2019-05-04] MEDS: LACTULOSE PO SCH ×3 (04:13→18:29)
[2019-05-04] MEDS: PRILOSEC PO SCH (06:04)
[2019-05-04] MEDS: VENTOLIN HFA INH SCH ×2 (07:53→19:36)
[2019-05-04] MEDS: VITAMIN K 10 MG in NS 50 ML IV SCH (08:27)
[2019-05-04] MEDS ORDERED: XYLOCAINE-MPF 2% ONE (12:07)
[2019-05-04] MEDS ORDERED: DIPRIVAN 1% ONE ×2 (12:08→12:27)
--- NOTE | 2019-05-04 12:36 | ENDOSCOPY OPERATIVE NOTE ---
[facility] ENDOSCOPY OPERATIVE NOTE , COLONOSCOPY PROCEDURE REPORT EXAM DATE: 05/04/2019 PATIENT NAME: Thom Robles MR #: [id number] BIRTHDATE: 1975 ENDOSCOPIST: Julien Salazar MD STATUS: inpatient GAMBLING DEALER: INDICATIONS: The patient is a 44 yr old male here for a colonoscopy due to anemia, non-specific and hematochezia. PROCEDURE PERFORMED: Colonoscopy, diagnostic MEDICATIONS: Per Anesthesia PREP TYPE: GoLytely
[2019-05-04] MEDS: NEURONTIN PO SCH ×4 (13:01→22:21)
[2019-05-04] MEDS: JANUVIA PO SCH (13:01)
[2019-05-04] MEDS: ULTRAM PO SCH ×2 (13:02→22:20)
[2019-05-04] MEDS: ALDACTONE PO SCH ×2 (13:02→22:22)
[2019-05-04] MEDS: LASIX PO SCH (13:02)
[2019-05-04] MEDS ORDERED: ALBUMIN 25% IV ONE (14:00)
--- NOTE | 2019-05-04 14:51 | Diag Imaging Result Doc PS360 ---
EXAM: US ABD PARACENTESIS W S/I 05/04/2019 HISTORY: Cirrhosis and ascites TECHNIQUE: Ultrasound-guided paracentesis COMMENT: The risks and benefits the procedure including the possibility of bleeding, infection, or reaction to lidocaine was discussed with the patient and he agreed to the procedure. Following sterile preparation the skin anterolaterally in the right abdomen and administration 1% lidocaine to the skin and deeper soft tissues, the paracentesis catheter was placed and 7.3 L of bloody fluid was drained. This was sent to the laboratory in its entirety. IMPRESSION: Successful ultrasound-guided paracentesis. Electronically signed by Luisito Molina 05/04/2019 2:49 PM
[2019-05-04 19:41] LABS: ALBUMIN BODY FLUID 1.2 g/dL
[2019-05-04 19:52] LABS: BODY FLUID SOURCE ASCETIC FLUID; WBC BF 1146 /cumm
[2019-05-04 19:53] LABS: MONOS 68 %; POLYS 32 %
--- NOTE | 2019-05-04 22:03 | PROGRESS NOTE ---
DATE: 05/04/2019 SUBJECTIVE: The patient has no major complaints. He feels a lot better since paracentesis. OBJECTIVE: Blood pressure 149/60, heart rate of 92, respiratory rate 19, temperature 98.4 degrees, 92% on room air. Cardiovascular: Regular rate and rhythm. Pulmonary: Bilateral breath sounds. Clear to auscultation. GI: Was soft, nontender, nondistended. Bowel sounds are positive. LABORATORY DATA: I do not have any new data today. PROBLEM LIST: 1. Anemia. He has had a GI workup. His hemoglobin and hematocrit has been stable or at least it has come up. His EGD and colon only really showed some hemorrhoids, which were likely related to causing the bleeding. He did have portal gastropathy though. So, obviously there was some oozing there, but we will continue to follow. DISPOSITION: 1. Ascites. He is on very high dose diuretics. We will continue to follow closely. We will continue to monitor closely and he is status post a paracentesis today where he had a lot of fluid removed, 7 L. 2. Type 2 diabetes, stable. 3. Cirrhosis with decompensation. He is pretty much at his baseline. We will see how things look. I think if the fluid does not look infected, anticipate discharge tomorrow. cc: Ajith Lambert MD
[2019-05-05] MEDS: ROCEPHIN 1 GM in NS 50 ML IV SCH (01:14)
[2019-05-05] MEDS: LACTULOSE PO SCH ×4 (01:15→18:33)
[2019-05-05] MEDS: NORCO-10 PO PRN ×4 (04:06→22:10)
[2019-05-05] MEDS: PRILOSEC PO SCH (06:00)
[2019-05-05 07:05] LABS: BASO# 0.04 X1000 (0.0-0.2); BASO% 0.8 % (0.0-0.8); EOS# 0.14 X1000 (0.0-0.7); EOS% 2.6 % (0.0-10.0); HEMATOCRIT 25.3 % (42.0-52.0); LYMPH# 1.21 X1000 (1.2-3.4); LYMPH% 22.8 % (20.5-51.1); MCH 29.9 PG (27-31); MCHC 31.6 g/dL (33-37); MCV 94.4 FL (81-99); MONO# 1.09 X1000 (0.11-0.59); MONO% 20.6 % (1.7-9.3); MPV 9.3 FL (7.4-10.4); NEUT# 2.82 X1000 (1.4-6.5); NEUT% 53.2 % (42.2-75.2); PLT 167 X1000 (130-400); RBC 2.68 XMIL (4.7-6.1); RDW 18.6 % (11.5-14.5)
[2019-05-05 07:30] LABS: AGAP 8; BUN 12 mg/dL (8-22); CALCIUM 8.5 mg/dL (8.8-10.2); CHLORIDE 94 mmol/L (98-107); COSMO 263; CREATININE 0.8 mg/dL (0.7-1.2); ESTIMATED GFR > 60; GLUCOSE 146 mg/dL (70-104); POTASSIUM 4.9 mmol/L (3.5-5.1); SODIUM 130 mmol/L (136-145); TCO2 28 mmol/L (25-35)
[2019-05-05 08:58] LABS: EOS 4 % (1-10); LYMPHS 16 % (21-51); MONO 12 % (1-9); SEGS 66 % (42-75)
[2019-05-05] MEDS: ULTRAM PO SCH ×2 (09:09→22:07)
[2019-05-05] MEDS: LASIX PO SCH (09:09)
[2019-05-05] MEDS: JANUVIA PO SCH (09:10)
[2019-05-05] MEDS: ALDACTONE PO SCH ×2 (09:10→22:07)
[2019-05-05] MEDS: NEURONTIN PO SCH ×4 (09:10→22:08)
[2019-05-05] MEDS: VENTOLIN HFA INH SCH ×2 (09:10→19:57)
[2019-05-05] MEDS: VITAMIN K 10 MG in NS 50 ML IV SCH (09:11)
--- NOTE | 2019-05-05 12:34 | GASTROENTEROLOGY PROGRESS NOTE ---
DATE: 05/05/2019 SUBJECTIVE: Mr. Robles is a 44-year-old, male. He was resting in bed. He said he was feeling much better today after the fluid was taken out from his abdomen. He has mentioned about having some tenderness around his left upper quadrant but he has denied any nausea or vomiting and has been having positive bowel movements. OBJECTIVE: Vital Signs: Temperature 98.5 degrees, pulse 87, respirations 16, blood pressure 132/58, oxygen saturation 96% on room air. His weight is 359 pounds. BMI is 43.8 kg/m2. General: Patient is morbidly obese, alert, oriented x3, and in no acute distress. HEENT: Pale conjunctivae. No icterus. PERRLA. Neck: Supple. Lungs: Clear to auscultation in the anterior lebron. Cardiovascular: Regular rate and rhythm. Abdomen: Obese, soft, tender on the right upper quadrant. Active bowel sounds heard in all 4 quadrants. Extremities: The patient has Unna boots bilaterally. Neurologic: He is alert, oriented x3. Laboratory Data: WBCs 5.30, hemoglobin 8.0, hematocrit 25.3, platelet count is 167,000. Sodium 130, potassium 4.9, chloride 94, carbon dioxide 28, anion gap 8, BUN 12, creatinine 0.8, glucose 146, calcium 8.5. The patient's ascitic fluid showed fluid WBC of 1146, fluid polynuclear WBC showed 32, fluid mononuclear WBC was 68, fluid albumin was 1.2. Stool occult blood showed positive. IMPRESSION AND PLAN: 1. Anemia. 2. Gastrointestinal bleed. 3. Liver cirrhosis with ascites. 4. Bilateral lower extremity edema. 5. COPD 6. Asthma. 7. Gout. 8. Diabetes type II PLAN: Mr. Robles is a 44-year-old, male with a history of cirrhosis with ascites. GI has been following him for his anemia and GI bleed. The patient had a colonoscopy done yesterday and it showed that he had some small internal hemorrhoids which was likely the cause of his rectal bleeding. His colon mucosa was otherwise normal. The patient's diet has been advanced to a low- salt, heart healthy diet. A paracentesis was done yesterday, 7.3 L of bloody fluid was drained. Ascitic fluid showed fluid WBCs of 1146, polynuclear WBCs showed 32, mononuclear WBCs showed 68, an stool occult blood was positive. Patient has spontaneous bacterial peritonitis. The patient has been started on antibiotic, Rocephin, and patient is also receiving vitamin K IV. Upon discharge, patient will need to be started on Cipro as prophylaxis for his SBP. The patient is receiving lactulose 45 mg p.o. We will continue to monitor the patient and follow the plan of care per PCP. This plan was discussed with Dr. Salazar. Please call us for any further questions or concerns. Dictated by CINTHIA Zuñiga for Julien Salazar MD Physician Attestation I have seen and examined the patient. I have discussed and reviewed the the note by Kya VICENTE and agree with findings and plan as documented. In brief, Mr. Thom Robles is a 44 year old man with h/o morbid obesity, pancytopenia, iron deficiency, decompensated ETOH cirrhosis with ascites, esophageal varices who presented with worsening decompensation of his underlying cirrhosis with worsening ascites and rectal bleeding. EGD was revealing for portal hypertensive gastropathy and colonoscopy for hemorrhoids. He is no longer having rectal bleeding. Paracentesis revealed bloody ascites; 7L removed. Ascites fluid was positive for SBP. Patient was started on CTX. He is stable and feels significantly better. Recommend restarting home diuretics, continue antibiotics for 5 days, then chronic cipro 500mg daily for SBP ppx. Continue to trend H/H and CMP. Will follow with you. MTDD
--- NOTE | 2019-05-05 19:08 | PROGRESS NOTE ---
DATE: 05/05/2019 SUBJECTIVE: Patient has no major complaints. OBJECTIVE: Vital signs: Blood pressure 139/66, heart rate of 80, respiratory rate 18, temperature 97.9 degrees. Cardiovascular: Regular rate and rhythm. Pulmonary: Bilateral breath sounds clear to auscultation. Gastrointestinal: Soft, nontender, nondistended. Bowel sounds are positive. LABORATORY DATA: White count 5, hemoglobin and hematocrit 8 and 25, platelets 167,000, sodium 130. PROBLEM LIST: 1. Spontaneous bacterial peritonitis. He had a large volume paracentesis yesterday, but the white count ended up being 1146 with 32% PMNs, which is consistent with spontaneous bacterial peritonitis. He has been started on Rocephin. We will defer to GI about duration of that at this point. 2. Diabetes. We will continue his regular medications. He is on Januvia. 3. Decompensated cirrhosis with ascites. He is on an Aldactone and Lasix combination. Disposition pending clinical status. 4. Anemia appears to be stable currently. We will continue to follow. I anticipate discharge hopefully in the next couple of days at the discretion of GI. cc: Ajith Lambert MD
[2019-05-06] MEDS: LACTULOSE PO SCH ×3 (00:30→12:42)
[2019-05-06] MEDS: ROCEPHIN 1 GM in NS 50 ML IV SCH (00:30)
[2019-05-06] MEDS: NORCO-10 PO PRN ×3 (03:29→12:42)
[2019-05-06] MEDS: PRILOSEC PO SCH (06:13)
[2019-05-06 06:50] LABS: AGAP 10; BASO# 0.02 X1000 (0.0-0.2); BASO% 0.4 % (0.0-0.8); BUN 10 mg/dL (8-22); CALCIUM 8.2 mg/dL (8.8-10.2); CHLORIDE 93 mmol/L (98-107); COSMO 260; CREATININE 0.8 mg/dL (0.7-1.2); EOS# 0.15 X1000 (0.0-0.7); EOS% 2.7 % (0.0-10.0); ESTIMATED GFR > 60; GLUCOSE 135 mg/dL (70-104); HEMATOCRIT 26.1 % (42.0-52.0); HEMOGLOBIN 8.3 g/dL (14.0-18.0); IMM GRAN# 0.05 X1000 (0.0-0.04); IMM GRAN% 0.9 % (0.0-0.5); LYMPH# 1.11 X1000 (1.2-3.4); LYMPH% 20.2 % (20.5-51.1); MCH 30.3 PG (27-31); MCHC 31.8 g/dL (33-37); MCV 95.3 FL (81-99); MONO# 0.99 X1000 (0.11-0.59); MPV 9.1 FL (7.4-10.4); NEUT# 3.18 X1000 (1.4-6.5); NEUT% 57.8 % (42.2-75.2); PLT 158 X1000 (130-400); POTASSIUM 4.3 mmol/L (3.5-5.1); RBC 2.74 XMIL (4.7-6.1); SODIUM 129 mmol/L (136-145); TCO2 26 mmol/L (25-35)
[2019-05-06] MEDS: LASIX PO SCH (08:23)
[2019-05-06] MEDS: NEURONTIN PO SCH ×2 (08:23→12:42)
[2019-05-06] MEDS: JANUVIA PO SCH (08:24)
[2019-05-06] MEDS: ALDACTONE PO SCH (08:24)
[2019-05-06] MEDS: VENTOLIN HFA INH SCH (08:35)
[2019-05-06] MEDS: ULTRAM PO SCH (10:19)
--- NOTE | 2019-05-06 11:02 | GASTROENTEROLOGY PROGRESS NOTE ---
DATE: 05/06/2019 SUBJECTIVE: Mr. Robles is a 44-year-old, male. He was sitting on the side of the bed and ready to have his breakfast. The patient has denied any nausea or vomiting but he said that he just felt a slight soreness in his abdomen. OBJECTIVE: Vital Signs: Temperature of 98.4 degrees, pulse 81, respirations 18, blood pressure is 135/60, oxygen saturation 96% on room air. His weight is 359 pounds. BMI is 43.8 kg/m2. General: Patient is morbidly obese, alert, oriented x3, and in no acute distress. HEENT: Pale conjunctivae. No icterus. PERRL. Neck: Supple. Lungs: Clear to auscultation in the anterior lebron. Cardiovascular: Regular rate and rhythm. Abdomen: Obese. Mildly firm, generalized tenderness. Active bowel sounds heard in all 4 quadrants. Extremities: The patient has Unna boots bilaterally. Neurologic: He is alert, oriented x3. Labs: WBCs 5.50, RBCs 2.74, hemoglobin 8.3, hematocrit 26.1, platelet count is 158,000. PT 17.0, INR is 1.36. Sodium 129, potassium 4.3, chloride 93, carbon dioxide 26, anion gap 10, BUN 10, creatinine 0.8, glucose 135, and calcium is 8.2. IMPRESSION AND PLAN: 1. Anemia. 2. Gastrointestinal bleed. 3. Liver cirrhosis with ascites. 4. Bilateral lower extremity edema. 5. Chronic obstructive pulmonary disease. 6. Asthma. 7. Gout. 8. Diabetes type 2. PLAN: Mr. Robles is a 44-year-old, male with a history of cirrhosis with ascites. GI has been following him for his anemia and GI bleed. The patient's hemoglobin and hematocrit today are 8.3 and 26.1. It has slightly trended upwards. The patient is on a low fat, heart healthy diet. A paracentesis was done on 05/04/2019 and they had taken out 7.3 L of bloody fluid where his fluid WBCs were 1146, polynuclear WBCs showed 32, and mononuclear WBCs showed 68. The patient is having spontaneous bacterial peritonitis. He is on antibiotic, Rocephin. The patient will need the antibiotics for 5 days and then he can be started on Cipro as a prophylaxis for his SBP. The patient had an EGD and a colonoscopy done. His EGD showed portal hypertensive gastropathy, bile in the stomach, a few gastric polyps in the stomach, and his colonoscopy showed that he had some internal hemorrhoids which was causing him to have some bleeding. We will continue to monitor the patient's hemoglobin and hematocrit, and follow the plan of care per PCP. This plan was discussed with Dr. Salazar. Please call us for any further questions or concerns. Dictated by CINTHIA Zuñiga for Julien Salazar MD Physician Attestation I have seen and examined the patient. I have discussed and reviewed the the note by Kya VICENTE and agree with findings and plan as documented. In brief, Mr. Thom Robles is a 44 year old man with h/o morbid obesity, pancytopenia, iron deficiency, decompensated ETOH cirrhosis with ascites, esophageal varices who presented with worsening decompensation of his underlying cirrhosis with worsening ascites and rectal bleeding. EGD was revealing for portal hypertensive gastropathy and colonoscopy for hemorrhoids. He is no longer having rectal bleeding. Paracentesis revealed bloody ascites; 7L removed. Ascites fluid was positive for SBP. Patient was started on CTX. He is stable and feels significantly better. Continue home diuretics, continue antibiotics, can transitin to cipro 500mg daily for SBP ppx upon discharge. He has hypervolemic hyponatremia in setting of cirrhosis. He reports copious water intake. Recommend fluid restriction of 1500mL daily. Continue to trend H/H and CMP. Will follow with you. MTDD
[2019-05-06 15:28] VITALS: BP 125/59
--- NOTE | 2019-05-09 09:15 | DISCHARGE SUMMARY ---
ADMISSION DATE: 04/30/2019 DISCHARGE DATE: 05/06/2019 DIAGNOSES: 1. Spontaneous bacterial peritonitis. 2. Anemia. 3. Gastrointestinal bleed. 4. Liver cirrhosis with ascites, alcoholic. 5. Bilateral lower extremity edema. 6. Chronic obstructive pulmonary disease. 7. Diabetes mellitus type 2. CONSULTANTS: Dr. Donovan. DIAGNOSTICS: Paracentesis for 7.3 L of bloody fluid drained per Radiology. HOSPITAL COURSE: Mr. Robles presented to the emergency room complaining of fatigue. He was found to have spontaneous bacterial peritonitis, for which he received from his primary care physician's office. He is being followed for alcoholic cirrhosis and hyperbilirubinemia, for which he had been hospitalized previously. His followup labs after discharge revealed a hemoglobin of 6.5, with a sodium of 122. He was admitted to the hospital with hyponatremia. This was corrected. He was transfused a total of 4 units of packed cells, with his discharge hemoglobin and hematocrit being 8.3 and 26.1 respectively. INCOMPLETE REPORT -- DICTATION ENDS HERE. Dictated by CINTHIA Wiggins for Yadiel Castrejon MD cc: CINTHIA Wiggins MD
== END 2019-05-06 16:31 | disposition home or self-care (01) | DRG 432 ==
LOC: P.MEDSURG 13:18 → P.ED 13:18 → SUATTDRO 16:45 → OBSVTOIN 16:45 → 4N 05-02 10:12
PROVIDERS: ATTEND Internal Medicine